=== PATIENT | male | born 1970 | race Caucasian/White ===

== ENCOUNTER 2016-09-07 15:18 | Emergency (ER) | payer OTHER ==
[~2016-09-07] VITALS: Ht 172.7 cm; Wt 77.3 kg
[~2016-09-07 15:18] MED LIST: BACTDS PO; CEPH-443 PO; MUPI22OI2 TOP
[2016-09-07 15:21] VITALS: Ht 172.7 cm; Wt 77.3 kg
[2016-09-07] MEDS ORDERED: ONDANSETRON 4 MG INJ IV STA (15:26)
[2016-09-07] MEDS ORDERED: FAMOTIDINE 20 MG INJ IV STA (15:26)
[2016-09-07] MEDS ORDERED: SOD CHLORIDE 0.9% 1,000 ML IV STA (15:26)
[2016-09-07] MEDS ORDERED: morphine 4 MG/ML VIAL IV STA (15:26)
[2016-09-07 15:42] LABS: ADD SCAN DIFF NO
[2016-09-07 15:43] LABS: BASOPHILS % 0.6 % (0.0-2.0); EOSINOPHILS # 0.4 10^3/ul (0.0-0.5); EOSINOPHILS % 5.2 % (0.0-7.0); HEMATOCRIT 38.5 % (42.0-52.0); HEMOGLOBIN 13.6 g/dl (14.0-18.0); LYMPHOCYTES # 1.6 10^3/ul (0.8-2.9); LYMPHOCYTES % 22.3 % (15.0-51.0); MEAN CORPUSCULAR HEMOGLOBIN 31.1 pg (29.0-33.0); MEAN CORPUSCULAR HGB CONC 35.3 g/dl (32.0-37.0); MEAN CORPUSCULAR VOLUME 88.1 fl (82.0-101.0); MEAN PLATELET VOLUME 10.3 fl (7.4-10.4); MONOCYTE # 0.5 10^3/ul (0.3-0.9); MONOCYTES % 7.7 % (0.0-11.0); NEUTROPHIL # 4.5 10^3/ul (1.6-7.5); NEUTROPHILS % 63.9 % (39.0-77.0); PLATELET COUNT 305 10^3/UL (140-415); RED BLOOD COUNT 4.37 10^6/ul (4.70-6.10); RED CELL DISTRIBUTION WIDTH 11.7 % (11.5-14.5); WHITE BLOOD COUNT 7.1 10^3/ul (4.8-10.8)
--- NOTE | 2016-09-07 15:50 | RADRPT ---
PROCEDURE: US Abdomen. CLINICAL INDICATION: abdominal pain TECHNIQUE: Multiple real-time images were acquired of the patient's right upper quadrant abdomen a nd retroperitoneum utilizing a high resolution transducer. COMPARISON: None FINDINGS: The liver demonstrates normal echogenicity. The liver is enlarged in size and no focal solid lesion s are seen. The liver measures 19.2 cm in length. The portal vein is patent with normal direction of flow. No intrahepatic biliary dilatation is seen. No gallstones are identified within the gallbladder. There is a moderate amount of sludge within the gallbladder. There is no pericholecystic fluid or gallbladder wall thickening. The common bile duct measures 3 mm in maximal dimension. The visualized portions of the pancreas are unremarkable. The tail of the pancreas is not seen. No free fluid is identified. The right kidney is normal in size, and demonstrate normal echogenicity and cortical thickness. The right kidney measures 11 cm in long dimension. There is no evidence of hydronephrosis. There are n o kidney stones. RPTAT: AA IMPRESSION: Moderate amount of sludge within the gallbladder. No evidence of gallbladder wall thickening or per icholecystic fluid. Mild hepatomegaly. .Kameron Collins MD, Date Time Electronically viewed and signed by .Kameron Collins MD, MD on 09/07/2016 15:50 .S/
[2016-09-07 16:05] LABS: ALBUMIN 4.3 g/dl (3.3-4.9); POTASSIUM 4.7 mmol/L (3.5-5.1)
[2016-09-07 16:07] LABS: BILIRUBIN,INDIRECT 0.5 mg/dl (0-1.1); BILIRUBIN,TOTAL 0.5 mg/dl (0.2-1.3); CREATININE 0.74 mg/dl (0.61-1.24)
[2016-09-07 16:08] LABS: ALBUMIN/GLOBULIN RATIO 1.26; CALCIUM 9.7 mg/dl (8.4-10.2); TOTAL PROTEIN 7.7 g/dl (6.1-8.1)
--- NOTE | 2016-09-07 16:23 | ERD ---
ER Documentation Chief Complaint Date/Time DATE: 09/07/16 TIME: 16:20 Chief Complaint BIB EMS abdominal pain, tachycardia HPI This is a 45-year-old male who presents to the emergency room for evaluation of abdominal pain. This patient does have a history of pancreatitis, was admitted at [facility] for gallstone pancreatitis. He was discharged and he was following up in a clinic arrange for him by the hospital and he stated that he was having abdominal pain. The clinic then called 911 and transferred this patient to the emergency room for further evaluation. The patient states that his pain is in the center of his abdomen with mild radiation to his back. He denies any alcohol use and denies any trauma to the abdomen. ROS All systems reviewed and are negative except as per history of present illness. Medications Home Meds Active Scripts Mupirocin* (Bactroban*) 2% -22 Gram Oint...g., 1 APPLIC TOP BID for 7 Days, EA Prov:JACOB SOLANO PA-C 10/09/15 Cephalexin* (Keflex*) 500 Mg Capsule, 500 MG PO QID for 14 Days, CAP Prov:JACOB SOLANO PA-C 10/09/15 Sulfamethoxazole-Trimethoprim* (Bactrim* DS) 800-160 Mg Tab, 1 TAB PO BID for 14 Days, TAB Prov:JACOB SOLANO PA-C 10/09/15 Allergies Allergies: Coded Allergies: No Known Allergy (Unverified , 10/12/15) PMhx/Soc History of Surgery: No Anesthesia Reaction: No Hx Neurological Disorder: No Hx Respiratory Disorders: No Hx Cardiac Disorders: No Hx Psychiatric Problems: No Hx Miscellaneous Medical Probl: Yes (DIABETIC FOR 6-7YEARS; Non-Compliant w/ meds and no recent Med Consult) Hx Alcohol Use: Yes (rarely) Hx Substance Use: No Hx Tobacco Use: Yes (4 to 5 sticks/day) Smoking Status: Current every day smoker Physical Exam Vitals Vital Signs Date Time Temp Pulse Resp B/P Pulse Ox O2 Delivery O2 Flow Rate FiO2 09/07/16 15:21 97.1 100 18 134/88 100 Physical Exam INITIAL VITAL SIGNS: Reviewed by me GENERAL: The patient is well developed and appropriate for usual state of health in no apparent distress HEENT: Pupils equal, round, and reactive to light. EOMI. There is no scleral icterus. NECK: C-spine is soft and supple, there is no meningismus. There is no cervical lymphadenopathy. LUNGS: Clear to auscultation bilaterally. There are no rales, wheezes or rhonchi. HEART: Regular rate and rhythm, no murmurs, clicks, rubs or gallops. ABDOMEN: Epigastric tenderness to palpation, otherwise soft, non-tender, non- distended. There are bowel sounds in all four quadrants. No rebound or guarding. EXTREMITIES: There is no peripheral cyanosis or edema. No focal swelling or erythema. NEUROLOGICAL: The patient moves all four extremities with 5/5 strength. Cranial nerves II - XII are intact. Normal gait. Alert and oriented SKIN: There is no apparent rash or petechiae. HEME/LYMPHATIC: There is no evidence of excessive bruising or lymphedema. PSYCHIATRIC: The patient does not appear anxious or depressed. Result Diagram: 09/07/16 1533 09/07/16 1533 Results 24 hrs Laboratory Tests Test 09/07/16 15:33 White Blood Count 7.110^3/ul Red Blood Count 4.3710^6/ul Hemoglobin 13.6g/dl Hematocrit 38.5% Mean Corpuscular Volume 88.1fl Mean Corpuscular Hemoglobin 31.1pg Mean Corpuscular Hemoglobin Concent 35.3g/dl Red Cell Distribution Width 11.7% Platelet Count 15505^3/UL Mean Platelet Volume 10.3fl Neutrophils % 63.9% Lymphocytes % 22.3% Monocytes % 7.7% Eosinophils % 5.2% Basophils % 0.6% Nucleated Red Blood Cells % 0.0/100WBC Neutrophils # 4.510^3/ul Lymphocytes # 1.610^3/ul Monocytes # 0.510^3/ul Eosinophils # 0.410^3/ul Basophils # 0.010^3/ul Nucleated Red Blood Cells # 0.010^3/ul Sodium Level 139mmol/L Potassium Level 4.7mmol/L Chloride Level 99mmol/L Carbon Dioxide Level 26mmol/L Anion Gap 19 Blood Urea Nitrogen 21mg/dl Creatinine 0.74mg/dl Glucose Level 251mg/dl Calcium Level 9.7mg/dl Total Bilirubin 0.5mg/dl Direct Bilirubin 0.00mg/dl Indirect Bilirubin 0.5mg/dl Aspartate Amino Transf (AST/SGOT) 23IU/L Alanine Aminotransferase (ALT/SGPT) 102IU/L Alkaline Phosphatase 142IU/L Total Protein 7.7g/dl Albumin 4.3g/dl Globulin 3.40g/dl Albumin/Globulin Ratio 1.26 Lipase 188U/L Current Medications Medications (Trade) Dose Ordered Sig/Meryl Route PRN Reason Start Time Stop Time Status Last Admin Dose Admin Sodium Chloride (NS) 1,000 ml @ 1,000 mls/hr Q1H STAT IV 09/07/16 15:26 09/07/16 16:25 09/07/16 15:44 Morphine Sulfate (morphine) 4 mg ONCE STAT IV 09/07/16 15:26 09/07/16 15:27 DC 09/07/16 15:48 Ondansetron HCl (Zofran Inj) 4 mg ONCE STAT IV 09/07/16 15:26 09/07/16 15:27 DC 09/07/16 15:48 Famotidine (Pepcid Iv) 20 mg ONCE STAT IV 09/07/16 15:26 09/07/16 15:27 DC 09/07/16 15:48 Procedures/MDM Ultrasound gallbladder: Moderate amount of sludge within the gallbladder. No evidence of gallbladder wall thickening or pericholecystic fluid. Mild hepatomegaly. This 45-year-old male presents to the emergency room for evaluation of abdominal pain from a clinic where he was following up for pancreatitis. The patient was discharged from [facility] this past week. This patient did have minor pain on my examination. I did obtain ultrasound which shows a moderate amount of sludge however no gallstones. No signs of cholecystitis. This patient's lipase is less than 300. 1 L fluids and morphine for pain. He will be discharged at this time with instructions to follow-up with his clinic and he is comfortable with our plan of care. Departure Diagnosis: Primary Impression: Abdominal pain Additional Impressions: History of pancreatitis Normocytic anemia Condition: Stable TIM BARNETT DO September 07, 2016 16:22
[2016-09-07] MEDS ORDERED: MTF1000T PO (16:27)
[2016-09-07] MEDS ORDERED: LANT3I SC (16:27)
[2016-09-07 16:30] VITALS: BP 131/75; PULSE 89; RESP 16
== END 2016-09-07 16:30 | disposition home or self-care (01) ==
LOC: E/R 15:18
DX: R10.13 Epigastric pain (principal); D64.9 Anemia, unspecified; E11.9 Type 2 diabetes mellitus without complications; F17.210 Nicotine dependence, cigarettes, uncomplicated; Z87.19 Personal history of other diseases of the digestive system
CPT/HCPCS: 36415; 76705; 80053; 83690; 85025; 96374; 96375; J2270; J2405; J7030; Z7502; Z7610

== ENCOUNTER 2016-09-26 04:42 | Emergency (ER) | payer OTHER ==
[~2016-09-26] VITALS: Ht 170.2 cm; Wt 76.5 kg
[~2016-09-26 04:42] MED LIST changes: -BACTDS PO; -CEPH-443 PO; +LANT3I SC; +MTF1000T PO; -MUPI22OI2 TOP
[2016-09-26 04:44] VITALS: Ht 170.2 cm; Wt 76.5 kg
[2016-09-26] MEDS ORDERED: SOD CHLORIDE 0.9% 500 ML IV STA (05:04)
[2016-09-26] MEDS ORDERED: ONDANSETRON 4 MG INJ IV STA (05:04)
[2016-09-26] MEDS ORDERED: MECLIZINE 12.5 MG TAB PO ONE (05:30)
[2016-09-26 05:48] LABS: ADD SCAN DIFF NO
[2016-09-26 05:50] LABS: BASOPHILS % 0.3 % (0.0-2.0); EOSINOPHILS # 0.3 10^3/ul (0.0-0.5); EOSINOPHILS % 5.7 % (0.0-7.0); HEMATOCRIT 33.4 % (42.0-52.0); HEMOGLOBIN 11.6 g/dl (14.0-18.0); LYMPHOCYTES % 33.3 % (15.0-51.0); MEAN CORPUSCULAR HEMOGLOBIN 30.9 pg (29.0-33.0); MEAN CORPUSCULAR HGB CONC 34.7 g/dl (32.0-37.0); MEAN CORPUSCULAR VOLUME 89.1 fl (82.0-101.0); MONOCYTE # 0.6 10^3/ul (0.3-0.9); MONOCYTES % 9.4 % (0.0-11.0); NEUTROPHIL # 3.1 10^3/ul (1.6-7.5); PLATELET COUNT 205 10^3/UL (140-415); RED BLOOD COUNT 3.75 10^6/ul (4.70-6.10); RED CELL DISTRIBUTION WIDTH 12.1 % (11.5-14.5)
--- NOTE | 2016-09-26 05:56 | RADRPT ---
PROCEDURE: CHEST - 1 VIEW CLINICAL INDICATION: 45-year-old male with chest pain. TECHNIQUE: A single frontal AP supine view of the chest was performed. The images were reviewed o n a PACS workstation. COMPARISON: None. FINDINGS: The cardiomediastinal silhouette has a normal appearance. There is no evidence for an infiltrate. There is no evidence for congestive heart failure. There is no evidence for pneumothorax. The osseou s structures are intact. IMPRESSION: No evidence for active cardiopulmonary disease. .Delfino Foss MD, MD Date Time Electronically viewed and signed by .Delfino Foss MD, on 09/26/2016 05:55 .M/
[2016-09-26 06:17] LABS: INR 0.9; PROTIME 12.1 Sec (12.2-14.2); PT RATIO 0.9
[2016-09-26 06:39] LABS: ALANINE AMINOTRANSFERASE 34 IU/L (13-69); ALBUMIN 4.3 g/dl (3.3-4.9); ALBUMIN/GLOBULIN RATIO 1.79; ALKALINE PHOSPHATASE 78 IU/L (42-121); ANION GAP 13 (8-16); ASPARTATE AMINO TRANSFERASE 16 IU/L (15-46); BILIRUBIN,INDIRECT 0.4 mg/dl (0-1.1); BILIRUBIN,TOTAL 0.4 mg/dl (0.2-1.3); BLOOD UREA NITROGEN 30 mg/dl (7-20); CALCIUM 9.4 mg/dl (8.4-10.2); CARBON DIOXIDE 27 mmol/L (21-31); CHLORIDE 103 mmol/L (97-110); CREATININE 1.66 mg/dl (0.61-1.24); GLUCOSE 250 mg/dl (70-220); POTASSIUM 4.1 mmol/L (3.5-5.1); SODIUM 139 mmol/L (135-144); TOTAL PROTEIN 6.7 g/dl (6.1-8.1)
--- NOTE | 2016-09-26 06:49 | ERD ---
ER Documentation Chief Complaint Date/Time DATE: 09/26/16 TIME: 06:45 Chief Complaint Pt reports dizziness and weakness with exertion, hx of vertigo HPI This is a very pleasant 45-year-old male who presents to the emergency room with dizziness. He gives a an excellent history of 4 days of symptoms of spinning sensation that is sudden in onset and sudden offset. The patient also describes some generalized weakness. At triage he noted weakness with exertion but denies this to me currently. He denies any chest pain no pressure no shortness of breath. He denies any headache falls or trauma. No fevers or chills. ROS All systems reviewed and are negative except as per history of present illness. Medications Home Meds Active Scripts Meclizine Hcl* (Meclizine Hcl*) 25 Mg Tablet, 25 MG PO Q8H Y for DIZZINESS, #30 TAB Prov:CONSUELO MORGAN MD 09/26/16 Reported Medications Insulin Glargine* (Lantus*) 100 Unit/Ml Soln, 12 UNIT SC QHS, #1 VIAL 09/07/16 Metformin* (Glucophage*) 1,000 Mg Tablet, 1000 MG PO WITH BREAKFAST DINNE, #60 TAB 09/07/16 Allergies Allergies: Coded Allergies: No Known Allergy (Unverified , 09/07/16) PMhx/Soc History of Surgery: No Anesthesia Reaction: No Hx Neurological Disorder: No Hx Respiratory Disorders: No Hx Cardiac Disorders: No Hx Psychiatric Problems: No Hx Miscellaneous Medical Probl: Yes (DIABETIC FOR 6-7YEARS; Non-Compliant w/ meds and no recent Med Consult) Hx Alcohol Use: Yes (rarely) Hx Substance Use: No Hx Tobacco Use: Yes (4 to 5 sticks/day) Smoking Status: Current every day smoker FmHx Family History: No diabetes Physical Exam Vitals Vital Signs Date Time Temp Pulse Resp B/P Pulse Ox O2 Delivery O2 Flow Rate FiO2 09/26/16 06:11 86 15 128/91 100 Room Air 09/26/16 04:44 98.3 107 20 102/56 100 Physical Exam General: Well developed, well nourished, no acute distress Head: Normocephalic, atraumatic. Eyes: Pupils equally reactive, EOM intact ENT: Moist mucous membranes Neck: Supple, no lymphadenopathy Respiratory: Lungs clear bilaterally, no distress Cardiovascular: RRR, no murmurs, rubs, or gallops Abdominal: Soft, non-tender, non-distended, no peritoneal signs : Deferred MSK: No edema, no unilateral swelling, 5/5 strength Neurologic: Alert and oriented, moving all extremities, normal speech, no focal weakness, no cerebellar signs, reproducible vertigo with head movements, no significant nystagmus, no ataxia and steady gait Skin: No rash Psych: Normal mood Result Diagram: 09/26/1652609/26/16526 Results 24 hrs Laboratory Tests Test 09/26/16 05:24 09/26/16 05:27 Bedside Glucose 260mg/dL White Blood Count 6.010^3/ul Red Blood Count 3.7510^6/ul Hemoglobin 11.6g/dl Hematocrit 33.4% Mean Corpuscular Volume 89.1fl Mean Corpuscular Hemoglobin 30.9pg Mean Corpuscular Hemoglobin Concent 34.7g/dl Red Cell Distribution Width 12.1% Platelet Count 00296^3/UL Mean Platelet Volume 11.0fl Neutrophils % 51.0% Lymphocytes % 33.3% Monocytes % 9.4% Eosinophils % 5.7% Basophils % 0.3% Nucleated Red Blood Cells % 0.0/100WBC Neutrophils # 3.110^3/ul Lymphocytes # 2.010^3/ul Monocytes # 0.610^3/ul Eosinophils # 0.310^3/ul Basophils # 0.010^3/ul Nucleated Red Blood Cells # 0.010^3/ul Prothrombin Time 12.1Sec Prothrombin Time Ratio 0.9 INR International Normalized Ratio 0.90 Activated Partial Thromboplast Time 25.0Sec Sodium Level 139mmol/L Potassium Level 4.1mmol/L Chloride Level 103mmol/L Carbon Dioxide Level 27mmol/L Anion Gap 13 Blood Urea Nitrogen 30mg/dl Creatinine 1.66mg/dl Glucose Level 250mg/dl Calcium Level 9.4mg/dl Total Bilirubin 0.4mg/dl Direct Bilirubin 0.00mg/dl Indirect Bilirubin 0.4mg/dl Aspartate Amino Transf (AST/SGOT) 16IU/L Alanine Aminotransferase (ALT/SGPT) 34IU/L Alkaline Phosphatase 78IU/L Troponin I < 0.012ng/ml B-Type Natriuretic Peptide 95PG/ML Total Protein 6.7g/dl Albumin 4.3g/dl Globulin 2.40g/dl Albumin/Globulin Ratio 1.79 Current Medications Medications (Trade) Dose Ordered Sig/Meryl Route PRN Reason Start Time Stop Time Status Last Admin Dose Admin Sodium Chloride (NS) 500 ml @ 500 mls/hr Q1H STAT IV 09/26/16 05:04 09/26/16 06:03 DC 09/26/16 05:33 Ondansetron HCl (Zofran Inj) 4 mg ONCE STAT IV 09/26/16 05:04 09/26/16 05:06 DC 09/26/16 05:33 Meclizine HCl (Antivert) 25 mg ONCE ONCE PO 09/26/16 05:30 09/26/16 05:31 DC 09/26/16 05:33 Procedures/MDM EKG, MONITORS, & DIAGNOSTIC IMAGING: EKG: I reviewed and interpreted a 12-lead EKG. Rhythm: Normal sinus rhythm Ectopy: None Intervals: No abnormalities ST segments: No elevations or depressions T waves: No contiguous inversions Chest x-ray: I reviewed and interpreted a 1 view of the chest Mediastinum: No enlargement Cardiac silhouette: No cardiomegaly Airspace: Clear lung doyle bilaterally without evidence of pneumothorax Bones: No evidence of fracture LAB INTERPRETATION: Mild renal insufficiency, mild hyperglycemia without evidence of diabetic ketoacidosis MEDICAL DECISION MAKING: The patient presents with signs and symptoms that are very consistent with benign positional vertigo and peripheral vertigo. He has no risk factors for central vertigo, he has reproducible symptoms that are sudden in onset and suddenly resolved. He has no signs of increased intracranial pressure. At triage and on the overnight physician's evaluation it was reported that the patient may have had exertional symptoms but he denies this to me. It appears that a workup was initiated including EKG and blood work for these reasons. However, on my evaluation and discussion the patient only describes generalized weakness. He denies any chest pain no shortness of breath no dyspnea on exertion no nausea on exertion. He has no exertional symptoms. ER COURSE: Patient was given meclizine with complete resolution of his symptoms. His laboratory testing and diagnostic imaging shows no evidence of cardiac process or etiology. No evidence of endorgan dysfunction. No indication for CT imaging of the brain given the patient's age and reproducible symptoms. The patient does have mild renal insufficiency and hyperglycemia but no DKA. He has a known history of diabetes. He states compliance with medications. I advised him to follow-up with his primary care physician to follow kidney function. Patient states understanding. I kept the patient and/or family informed of laboratory and diagnostic imaging results throughout the emergency room course. DISPOSITION PLAN: We discussed follow up with the patient's primary care doctor within 24 to 48 hours as needed. We also discussed return to the emergency room for worsening symptoms or worsening condition. Outpatient referral: None required Discharge Medications: Meclizine Departure Diagnosis: Primary Impression: Acute renal insufficiency Additional Impression: Peripheral vertigo Laterality: unspecified laterality Qualified Code: H81.399 - Peripheral vertigo, unspecified laterality Condition: Stable CONSUELO MORGAN MD Sep 26, 2016 06:48
[2016-09-26 06:50] LABS: B-TYPE NATRIURETIC PEPTIDE 95 PG/ML (0-125)
[2016-09-26 06:56] LABS: TROPONIN-I < 0.012 ng/ml (0.00-0.12)
[2016-09-26 07:20] VITALS: BP 122/70; PULSE 84; RESP 15
[2016-09-26] MEDS ORDERED: MECL-77 PO (07:29)
== END 2016-09-26 08:12 | disposition home or self-care (01) ==
LOC: E/R 04:42
DX: N28.9 Disorder of kidney and ureter, unspecified (principal); H81.399 Other peripheral vertigo, unspecified ear; F17.210 Nicotine dependence, cigarettes, uncomplicated; E11.9 Type 2 diabetes mellitus without complications; R07.9 Chest pain, unspecified; Z79.4 Long term (current) use of insulin; Z79.84 Long term (current) use of oral hypoglycemic drugs
CPT/HCPCS: 36415; 71010; 80053; 82962; 83880; 84484; 85025; 85610; 85730; 93005; 96374; J2405; J7040; Z7502; Z7610

== ENCOUNTER 2016-10-21 02:25 | Emergency (ER) | payer OTHER ==
[~2016-10-21] VITALS: Ht 172.7 cm; Wt 78.5 kg
[~2016-10-21 02:25] MED LIST changes: +MECL-77 PO
[2016-10-21 02:29] VITALS: Ht 172.7 cm; Wt 78.5 kg
--- NOTE | 2016-10-21 02:37 | ERA ---
ER Documentation Chief Complaint Date/Time DATE: 10/21/16 TIME: 02:36 Chief Complaint LEWIS and left eye pain HPI The patient is a 46-year-old male, presenting to the ER because of headache, left eye pain that began about 8 PM yesterday, complains of decreased visual acuity on the left eye. He denies similar symptoms previously, denies diplopia , fever, neck pain, chest pain, abdominal pain, vomiting, dysuria, diarrhea. He smokes socially, denies drinking Past medical history: Diabetes mellitus Past surgical history: None ROS All systems reviewed and are negative except as per history of present illness. Medications Home Meds Reported Medications Insulin Glargine* (Lantus*) 100 Unit/Ml Soln, 12 UNIT SC QHS, #1 VIAL 09/07/16 Metformin* (Glucophage*) 1,000 Mg Tablet, 1000 MG PO WITH BREAKFAST DINNE, #60 TAB 09/07/16 Discontinued Scripts Meclizine Hcl* (Meclizine Hcl*) 25 Mg Tablet, 25 MG PO Q8H Y for DIZZINESS, #30 TAB Prov:CONSUELO MORGAN MD 09/26/16 Allergies Allergies: Coded Allergies: No Known Allergy (Unverified , 10/21/16) PMhx/Soc History of Surgery: No Anesthesia Reaction: No Hx Neurological Disorder: No Hx Respiratory Disorders: No Hx Cardiac Disorders: No Hx Psychiatric Problems: No Hx Miscellaneous Medical Probl: Yes (DIABETIC FOR 6-7YEARS; Non-Compliant w/ meds and no recent Med Consult) Hx Alcohol Use: Yes (rarely) Hx Substance Use: No Hx Tobacco Use: Yes (4 to 5 sticks/day) Physical Exam Vitals Vital Signs Date Time Temp Pulse Resp B/P Pulse Ox O2 Delivery O2 Flow Rate FiO2 10/21/16 02:39 98 17 181/95 100 Room Air 10/21/16 02:29 98.4 100 18 186/102 99 Physical Exam Const: No acute distress. Head: Atraumatic. Eyes: Normal Conjunctiva. Minimal erythematous left conjunctiva, no discharge, no eye entrapment ENT: Normal External Ears, Nose and Mouth. Neck: Full range of motion. No meningismus. Resp: Clear to auscultation bilaterally. Cardio: Regular rate and rhythm. Abd: Soft, non distended, normal bowel sounds, non tender. Skin: No petechiae or rashes. Back: No midline or flank tenderness. Ext: No cyanosis, or edema. Neur: Awake and alert. No focal deficit Psych: Normal Mood and Affect. Procedures/MDM [place] [id number] Radiology Main Line: [phone] DIAGNOSTIC IMAGING REPORT Patient: BRIAN SOARES : 1970 Age: 46 Sex: M MR #: [id number] DOS: 10/21/16249 Ordering MD: VIRI BRANDON MD Location: E/R Room/Bed: PROCEDURE: Bilateral ocular ultrasound CLINICAL INDICATION: Left sided visual disturbance. Evaluate for retinal detachment or vitreous hemorrhage. TECHNIQUE: Bilateral ocular scanning was performed with a high frequency linear transducer. COMPARISON: None FINDINGS: The anterior chamber of both eyes is unremarkable. There is no evidence for retinal hemorrhage of either eye. A small amount of posterior debris is seen in the right globe. And real-time examination, the nursing home physician felt a small amount of dependent material is also present in the left eye. IMPRESSION: Small amount of probable vitreous hemorrhage or debris of both eyes, right greater than left. No evidence for retinal hemorrhage. Physician Luis Date Time Electronically viewed and signed by Cuca Ceron Physician on 10/21/2016 04 :16 LE/ CC: VIRI BRANDON MD [place] [address] Radiology Main Line: [phone] DIAGNOSTIC IMAGING REPORT Patient: BRIAN SOARES : 1970 Age: 46 Sex: M MR #: [id number] DOS: 10/21/16249 Ordering MD: VIRI BRANDON MD Location: E/R Room/Bed: PROCEDURE: CT BRAIN WITHOUT CONTRAST CLINICAL INDICATION: 46-year-old male with headaches. TECHNIQUE: The study was performed utilizing [employer] VCT 64-slice CT scanner. Direct axial sections were obtained from the foramen magnum to the vertex without the use of intravenous contrast material. Sagittal and coronal reformations were obtained. One or more of the following dose reduction techniques were utilized: automated exposure control, adjustment of the mA and/ or kV according to patient's size or use of iterative reconstruction technique. The images were viewed on a PACS workstation. CTD/vol = 42.9 mGy; Total Exam DLP = 720.2 mGy-cm. COMPARISON: None. FINDINGS: There is mild prominence of the sulci and cisternal spaces consistent with diffuse volume loss. Otherwise, the ventricles have a normal shape and position. There is no evidence for mass effect or midline shift. There are no intracranial areas of abnormal attenuation. There is no evidence for acute intra or extra-axial blood. The bony calvarium is intact. The partially visualized paranasal sinuses and mastoid air cells are without significant abnormal soft tissue. IMPRESSION: Mild diffuse volume loss. .Delfino Foss MD, MD Date Time Electronically viewed and signed by .Delfino Foss MD, MD on 10/21/2016 03:30 .M/ CC: VIRI BRANDON MD MEDICAL MAKING DECISION: The patient is a 46-year-old male, presenting with acute bilateral vitreous hemorrhage. Visual acuity is unchanged. The differential diagnoses considered include but are not limited to retinal detachment, vitreous detachment Departure Diagnosis: Primary Impression: Vitreous hemorrhage, bilateral Condition: Good Comments I discussed the findings with the patient. I advised the patient to follow-up with radio director at [facility], [facility], [facility] tomorrow immediately and return if any concern VIRI BRANDON MD Oct 21, 2016 02:37
--- NOTE | 2016-10-21 03:31 | RADRPT ---
PROCEDURE: CT BRAIN WITHOUT CONTRAST CLINICAL INDICATION: 46-year-old male with headaches. TECHNIQUE: The study was performed utilizing [employer] VCT 64-slice CT scanner. Direct axial sections were obtained from the foramen magnum to the vertex without the use of intravenous contrast material. Sagittal and coronal reformations were obtained. One or more of the following dose reduc tion techniques were utilized: automated exposure control, adjustment of the mA and/or kV according to patient's size or use of iterative reconstruction technique. The images were viewed on a PACS w orkstation. CTD/vol = 42.9 mGy; Total Exam DLP = 720.2 mGy-cm. COMPARISON: None. FINDINGS: There is mild prominence of the sulci and cisternal spaces consistent with diffuse volume loss. Oth erwise, the ventricles have a normal shape and position. There is no evidence for mass effect or mid line shift. There are no intracranial areas of abnormal attenuation. There is no evidence for acut e intra or extra-axial blood. The bony calvarium is intact. The partially visualized paranasal sinus es and mastoid air cells are without significant abnormal soft tissue. IMPRESSION: Mild diffuse volume loss. .Delfino Foss MD, MD Date Time Electronically viewed and signed by .Delfino Foss MD, on 10/21/2016 03:30 .M/
--- NOTE | 2016-10-21 04:16 | RADRPT ---
PROCEDURE: Bilateral ocular ultrasound CLINICAL INDICATION: Left sided visual disturbance. Evaluate for retinal detachment or vitreous h emorrhage. TECHNIQUE: Bilateral ocular scanning was performed with a high frequency linear transducer. COMPARISON: None FINDINGS: The anterior chamber of both eyes is unremarkable. There is no evidence for retinal hemorrhage of e ither eye. A small amount of posterior debris is seen in the right globe. And real-time examinatio n, the conservation specialist felt a small amount of dependent material is also present in the left eye. IMPRESSION: Small amount of probable vitreous hemorrhage or debris of both eyes, right greater than left. No ev idence for retinal hemorrhage. Physician Luis Date Time Electronically viewed and signed by Cuca Ceron Physician on 10/21/2016 04:16 LE/
[2016-10-21 04:47] VITALS: BP 142/79; PULSE 78; RESP 18
== END 2016-10-21 04:50 | disposition home or self-care (01) ==
LOC: E/R 02:25
DX: H43.13 Vitreous hemorrhage, bilateral (principal); E11.9 Type 2 diabetes mellitus without complications; F17.210 Nicotine dependence, cigarettes, uncomplicated; R51 Headache; Z79.84 Long term (current) use of oral hypoglycemic drugs; Z79.4 Long term (current) use of insulin
CPT/HCPCS: 70450; 76536; Z7502

== ENCOUNTER 2018-10-13 11:57 | Inpatient (IN) | payer OTHER ==
[~2018-10-13] VITALS: Ht 170.2 cm; Wt 99.9 kg
[~2018-10-13 11:57] MED LIST changes: -MECL-77 PO
[2018-10-13] MEDS ORDERED: FUROSEMIDE 40 MG INJ IV STA (12:15)
[2018-10-13] MEDS ORDERED: CARV25TA79 PO (12:52)
[2018-10-13] MEDS ORDERED: BUME1TAB PO (12:52)
[2018-10-13] MEDS ORDERED: INSU100I33 SC (12:53)
[2018-10-13] MEDS ORDERED: HYDR100T25 PO (12:53)
[2018-10-13] MEDS ORDERED: FER325 PO (12:54)
[2018-10-13] MEDS ORDERED: METF-406 PO (12:56)
[2018-10-13] MEDS ORDERED: AMLO-147 PO (12:56)
[2018-10-13] MEDS ORDERED: ATOR40TA68 PO (12:56)
[2018-10-13] MEDS ORDERED: ERGO500013 PO (12:57)
--- NOTE | 2018-10-13 13:26 | ERD ---
ER Documentation Chief Complaint Chief Complaint SOB X 10 DAYS, SERGIO LEG SWELLING HPI 48-year-old male presents complaining of shortness of breath, bilateral lower extremity and scrotal swelling. Patient states she is had multiple hospitalizations for similar with his last hospitalization at [facility] approximately 10 days ago. Since leaving the hospital, he is been having increasing swelling about both lower extremities as well as his testicle and over the last 24 to 48 hours began developing shortness of breath. He denies any chest pain, palpitations. He reports no fevers or chills. He reports no abdominal pain. He reports no difficulty urinating. ROS All systems reviewed and are negative except as per history of present illness. Medications Home Meds Reported Medications Ergocalciferol (Vitamin D2) (VITAMIN D2) 50,000 Unit Capsule, 41765 UNIT PO KENY RY SUNDAY, CAP 10/13/18 Amlodipine Besylate* (Amlodipine Besylate*) 10 Mg Tablet, 10 MG PO DAILY, #30 TAB 10/13/18 Atorvastatin* (Atorvastatin*) 40 Mg Tablet, 40 MG PO QHS, #30 TAB 10/13/18 Metformin Hcl* (Metformin Hcl* ER) 1,000 Mg Tab.er.24, 1000 MG PO BID, #30 TAB 10/13/18 Ferrous Sulfate* (Ferrous Sulfate*) 325 Mg Tabec, 325 MG PO DAILY, TAB 10/13/18 Hydralazine Hcl* (Hydralazine Hcl*) 100 Mg Tablet, 100 MG PO BID, #90 TAB 10/13/18 Insulin Glargine,Hum.rec.anlog (Basaglar Kwikpen U-100) 100 Unit/1 Ml Insuln.pen, 8 UNIT SC QHS, EA 10/13/18 Carvedilol* (Carvedilol*) 25 Mg Tablet, 25 MG PO BID, #60 TAB 10/13/18 Bumetanide* (Bumetanide*) 1 Mg Tablet, 1 MG PO BID, TAB 10/13/18 Discontinued Reported Medications Insulin Glargine* (Lantus*) 100 Unit/Ml Soln, 12 UNIT SC QHS, #1 VIAL 09/07/16 Metformin* (Glucophage*) 1,000 Mg Tablet, 1000 MG PO WITH BREAKFAST DINNE, #60 TAB 09/07/16 Allergies Allergies: Coded Allergies: No Known Allergy (Unverified , 10/13/18) PMhx/Soc History of Surgery: No Anesthesia Reaction: No Hx Neurological Disorder: No Hx Respiratory Disorders: No Hx Cardiac Disorders: No Hx Psychiatric Problems: No Hx Miscellaneous Medical Probl: Yes (DIABETIC FOR 6-7YEARS; Non-Compliant w/meds and no recent Med Consult) Hx Alcohol Use: Yes (rarely) Hx Substance Use: No Hx Tobacco Use: Yes (4 to 5 sticks/day) Smoking Status: Current every day smoker FmHx Noncontributory for chief complaint Physical Exam Vitals Vital Signs Date Temp Pulse Resp B/P (MAP) Pulse Ox O2 O2 Flow FiO2 Time Delivery Rate 10/13/18 98.1 75 19 130/79 99 Room Air 12:18 (96) 10/13/18 98.1 79 18 134/64 99 12:01 (87) Physical Exam GENERAL: Chronically ill-appearing, pale. HEENT: Pupils equal, round, and reactive to light. EOMI. There is no scleral icterus. No JVD NECK: C-spine is soft and supple, there is no meningismus. There is no cervical lymphadenopathy. LUNGS: Occasional crackle at both bases. No tachypnea or retractions. HEART: Regular rate and rhythm, no murmurs, clicks, rubs or gallops. ABDOMEN: Soft, non-tender, non-distended. There are bowel sounds in all four quadrants. No rebound or guarding. Patient has significant swelling about the abdomen. : Scrotal swelling without evidence of infection EXTREMITIES: 3+ edema bilaterally with no cyanosis or clubbing NEURO: The patient moves all four extremities with 5/5 strength. Cranial nerves II - XII are intact. Normal gait. Alert and oriented SKIN: There is no apparent rash or petechiae. Pallor is appreciated HEME/LYMPHATIC: There is no evidence of excessive bruising or lymphedema. PSYCHIATRIC: The patient does not appear anxious or depressed. Result Diagram: 10/13/18 1226 10/13/18 1226 Results 24 hrs Laboratory Tests Test 10/13/18 12:26 White Blood Count 5.9 10^3/ul Red Blood Count 2.64 10^6/ul Hemoglobin 7.7 g/dl Hematocrit 24.0 % Mean Corpuscular Volume 90.9 fl Mean Corpuscular Hemoglobin 29.2 pg Mean Corpuscular Hemoglobin Concent 32.1 g/dl Red Cell Distribution Width 14.6 % Platelet Count 193 10^3/UL Mean Platelet Volume 11.1 fl Immature Granulocytes % 0.300 % Neutrophils % 67.2 % Lymphocytes % 16.5 % Monocytes % 9.6 % Eosinophils % 5.4 % Basophils % 1.0 % Nucleated Red Blood Cells % 0.0 /100WBC Immature Granulocytes # 0.020 10^3/ul Neutrophils # 4.0 10^3/ul Lymphocytes # 1.0 10^3/ul Monocytes # 0.6 10^3/ul Eosinophils # 0.3 10^3/ul Basophils # 0.1 10^3/ul Nucleated Red Blood Cells # 0.0 10^3/ul Prothrombin Time 12.8 Sec Prothrombin Time Ratio 1.0 INR International Normalized Ratio 0.95 Activated Partial Thromboplast Time 31.5 Sec Sodium Level 144 mmol/L Potassium Level 4.9 mmol/L Chloride Level 114 mmol/L Carbon Dioxide Level 23 mmol/L Anion Gap 7 Blood Urea Nitrogen 44 mg/dl Creatinine 2.62 mg/dl Est Glomerular Filtrat Rate mL/min 26 mL/min Glucose Level 92 mg/dl Calcium Level 8.2 mg/dl Total Bilirubin 0.5 mg/dl Direct Bilirubin 0.00 mg/dl Indirect Bilirubin 0.5 mg/dl Aspartate Amino Transf (AST/SGOT) 23 IU/L Alanine Aminotransferase (ALT/SGPT) 23 IU/L Alkaline Phosphatase 103 IU/L Troponin I < 0.012 ng/ml B-Type Natriuretic Peptide 4070 PG/ML Total Protein 6.3 g/dl Albumin 3.2 g/dl Globulin 3.10 g/dl Albumin/Globulin Ratio 1.03 Current Medications Medications Dose Sig/Meryl Start Time Status Last (Trade) Ordered Route PRN Stop Time Admin Dose Reason Admin Furosemide 40 mg ONCE STAT 10/13/18 DC 10/13/18 (Lasix) IV 12:15 12:37 10/13/18 12:16 Procedures/MDM Patient was taken to a room, seen and evaluated. Comfort measures were initiated. Diagnostic tests were ordered and reviewed. 3 LEAD RHYTHM STRIP: Normal sinus rhythm without ectopy EK lead EKG reviewed by myself: Normal Sinus Rhythm Rightward axis. Normal intervals. No ST elevation, depression, or T wave inversion Impression: Nonspecific EKG RADIOLOGY: Reviewed with the radiologist CONSULTATION: Hospitalist was notified for admission REEVALUATION: 1325: Diagnostic tests were appreciated and decision was made to admit to the hospital. Patient remained stable in the emergency room. MEDICAL DECISION MAKIN-year-old male presents with significant lower extremity and scrotal edema as well as what appears to be mild congestive heart failure symptoms. Tests indicate that he has concurrent likely liver disease with a low albumin and anemia as well as renal disease. Patient will require admission to the hospital for diuresis, symptom control as well as further diagnostic work-up. Fortunately at this time, he does not appear to be acutely ischemic with a negative troponin and EKG that does not demonstrate cardiac ischemia. Departure Diagnosis: Primary Impression: Congestive heart failure Additional Impressions: Anemia Kidney injury Condition: TIFFANIE Estes Oct 13, 2018 13:26
[2018-10-13] MEDS ORDERED: ONDANSETRON 4 MG INJ IV PRN ×2 (13:30→14:00)
[2018-10-13] MEDS ORDERED: ACETAMINOPHEN 325 MG TAB PO PRN ×2 (13:30→14:00)
--- NOTE | 2018-10-13 13:51 | HP ---
Date/Time of Note Date/Time of Note DATE: 10/13/18 TIME: 13:51 Assessment/Plan VTE Prophylaxis SCD applied (from Nsg): No SCD contraindicated: other Pharmacological prophylaxis: heparin Lines/Catheters IV Catheter Type (from Nrsg): Saline Lock Assessment/Plan Assessment/Plan 1. Acute on chronic heart failure - BNP elevated, 4000K - ECHO ordered to assess EF - Diuretics on board - Dr. Gutiérrez, Cardiology consulted for assistance with diuresis and medication adjustments - Daily weights and I/O - No effusions or pulmonary edema on CXR 2. ALEX on CKD - possible secondary to cardio renal vs diabetic nephropathy - Unsure baseline - Dr. Lieberman, Nephrology consulted for further recommendations - Renal US ordered - avoid nephrotoxic agents 3. Anemia - will check iron levels - no need for transfusions at this time 4. Diabetes Mellitus - A1c ordered - ISS and accuchecks - holding Metformin in setting of ALEX 5. HTN - continue home medications 6. Constipation - bowel regime 7. LE edema - secondary to CHF 8. Diet - Carb controlled 9. Disposition - Admit to Telemetry for treatment of acute CHF exacerbation and acute renal failure. Result Diagram: 10/13/18 1226 10/13/18 1226 Results 24hrs Laboratory Tests Test 10/13/18 12:26 White Blood Count 5.9 Red Blood Count 2.64 #L Hemoglobin 7.7 #L Hematocrit 24.0 #L Mean Corpuscular Volume 90.9 Mean Corpuscular Hemoglobin 29.2 Mean Corpuscular Hemoglobin Concent 32.1 Red Cell Distribution Width 14.6 #H Platelet Count 193 Mean Platelet Volume 11.1 H Immature Granulocytes % 0.300 Neutrophils % 67.2 Lymphocytes % 16.5 Monocytes % 9.6 Eosinophils % 5.4 Basophils % 1.0 Nucleated Red Blood Cells % 0.0 Immature Granulocytes # 0.020 Neutrophils # 4.0 Lymphocytes # 1.0 Monocytes # 0.6 Eosinophils # 0.3 Basophils # 0.1 Nucleated Red Blood Cells # 0.0 Prothrombin Time 12.8 Prothrombin Time Ratio 1.0 INR International Normalized Ratio 0.95 Activated Partial Thromboplast Time 31.5 Sodium Level 144 Potassium Level 4.9 Chloride Level 114 H Carbon Dioxide Level 23 Anion Gap 7 Blood Urea Nitrogen 44 H Creatinine 2.62 H Est Glomerular Filtrat Rate mL/min 26 L Glucose Level 92 Calcium Level 8.2 L Total Bilirubin 0.5 Direct Bilirubin 0.00 Indirect Bilirubin 0.5 Aspartate Amino Transf (AST/SGOT) 23 Alanine Aminotransferase (ALT/SGPT) 23 Alkaline Phosphatase 103 Troponin I < 0.012 B-Type Natriuretic Peptide 4070 H Total Protein 6.3 Albumin 3.2 L Globulin 3.10 Albumin/Globulin Ratio 1.03 HPI/ROS Admit Date/Time Admit Date/Time 10/13/18 Hx of Present Illness 48 yo M PMH diabetes and hypertension presented to ED with worsening shortness of breath and difficulty ambulating. Patient states he was recently at [facility] for one week and denies being told anything was wrong with his heart. He has been home for the past week and still has not been feeling well. He denies having any renal issues and states he's compliant with whatever medications are on his list. He is not familiar with why he is on each of his medications. He does admit to lower extremity swelling that has been worsening over the past year. Denies any chest pain, dizziness, nausea, vomiting, fevers, chills, abdominal pain, or urinary issues. Does complain of constipation but last BM was yesterday. Patient states glucose is well controlled at home as well. ROS All 12 systems reviewed and pertinent positives as per HPI. All others negative. Constitutional: No fatigue, No nausea Eyes: No discharge ENT: No congestion Respiratory: shortness of breath; No cough, No sputum, No wheezing Cardiovascular: edema; No chest pain, No lightheadedness, No palpitations Gastrointestinal: constipation; No pain, No diarrhea, No nausea, No vomiting Genitourinary: no complaints Musculoskeletal: No back pain, No neck pain Skin: No bruising, No laceration, No rash Neurologic: No confusion, No dizziness, No focal-weakness, No syncope Endocrine: no complaints Lymphatic: no complaints Psychological: nl mood/affect Immunologic: no complaints PMH/Family/Social Past Medical History Medical History: diabetes, hypertension Medications Current Medications Ondansetron HCl (Zofran Inj) 4 mg ER BRIDGE PRN IV NAUSEA/VOMITING; Start 10/13/18 at 13:30; Stop 10/14/18 at 13:29 Acetaminophen (Tylenol Tab) 650 mg ER BRIDGE PRN PO .MILD PAIN 1-3 OR TEMP; Start 10/13/18 at 13:30; Stop 10/14/18 at 13:29 Amlodipine Besylate (Norvasc) 10 mg DAILY PO ; Start 10/14/18 at 09:00; Status UNV Atorvastatin Calcium (Lipitor) 40 mg QHS PO ; Start 10/13/18 at 21:00; Status UNV Carvedilol (Coreg) 25 mg BID PO ; Start 10/13/18 at 21:00; Status UNV Ferrous Sulfate (Ferrous Sulfate (Ec)) 325 mg DAILY PO ; Start 10/14/18 at 09:00; Status UNV Hydralazine HCl (Apresoline) 100 mg BID PO ; Start 10/13/18 at 21:00; Status UNV Insulin Glargine (Lantus) 8 unit QHS SC ; Start 10/13/18 at 21:00; Status UNV IV Flush (NS 3 ml) 3 ml PER PROTOCOL IV ; Start 10/13/18 at 14:00; Status UNV Ondansetron HCl (Zofran Inj) 4 mg Q6H PRN IV NAUSEA/VOMITING; Start 10/13/18 at 14:00; Status UNV Nitroglycerin (Nitroglycerin (Sl Tab) 0.4 Mg) 1 tab Q5M PRN SL .CHEST PAIN; Start 10/13/18 at 14:00; Status UNV Acetaminophen (Tylenol Tab) 650 mg Q6H PRN PO .PAIN 1-3 OR TEMP; Start 10/13/18 at 14:00; Status UNV Docusate Sodium (Colace) 100 mg Q12H PRN PO .CONSTIPATION; Start 10/13/18 at 14:00; Status UNV Magnesium Hydroxide (Milk Of Mag) 30 ml DAILY PRN PO .CONSTIPATION; Start 10/13/18 at 14:00; Status UNV Pantoprazole (Protonix Tab) 40 mg DAILY@06 PO ; Start 10/14/18 at 06:00; Status UNV Heparin Sodium (Porcine) (Heparin (5000 Units/1ml)) 5,000 unit Q12 SC ; Start 10/13/18 at 21:00; Status UNV Bumetanide (Bumex) 1 mg BID DIURETICS IV ; Start 10/13/18 at 18:00; Status UNV Coded Allergies: No Known Allergy (Unverified , 10/13/18) Past Surgical History Past Surgical Hx: no surgical history Family History Significant Family History: diabetes, hypertension Social History Alcohol Use: none Smoking Status: Current every day smoker Drug Use: none Exam/Review of Systems Vital Signs Vitals Vital Signs Date Temp Pulse Resp B/P (MAP) Pulse Ox O2 O2 Flow FiO2 Time Delivery Rate 10/13/18 98.1 75 19 130/79 99 Room Air 12:18 (96) Exam Exam General: Pleasant male, answering questions appropriately. HEENT: Atraumatic, normocephalic. The pupils are equal, round and reactive. Extraocular motor are intact. Neck: Supple with full range of motion. + JVD, No rigidity or meningismus, Chest: Nontender Lungs: Clear to auscultation bilaterally. diminished at bases with crackles. no wheezing Heart: Normal S1-S2, Regular rhythm and rate. No murmur, S3, or S4 Abdomen: Soft , nontender to palpation, nondistended , bowel sounds are present. No guarding no rebound tenderness , No masses or organomegaly. No costovertebral temporal angle mass Extremities: moving all extremities. no cyanosis or clubbing Neurologic: CN 2-12 intact. No focal deficits, motor and sensory intact. Skin: lower extremity venous stasis changes, no erythema or warmth appreciated. Additional Comments Home medications reviewed PROCEDURE: XR Chest. CLINICAL INDICATION: Chest Pain. TECHNIQUE: Portable AP view of the chest was obtained. COMPARISON: CR 06/14/2018 FINDINGS: Mild partial atelectasis in the lung bases. No effusion or pneumothorax. Mild cardiomegaly. No acute osseous abnormality. IMPRESSION: Mild cardiomegaly. Mild bibasilar partial atelectasis. RPTAT:AAJJ Physician Marv Date Time Electronically viewed and signed by Jeri Mata Physician on 10/13/2018 13:00 GLADIS CUNHA MD Oct 13, 2018 13:51
[2018-10-13] MEDS ORDERED: MAGNESIUM HYDROXIDE 30ML CUP PO PRN (14:00)
[2018-10-13] MEDS ORDERED: NITROGLYCERIN (SL) 0.4 MG TAB SL PRN (14:00)
[2018-10-13] MEDS ORDERED: DOCUSATE SODIUM 100 MG CAP PO PRN (14:00)
[2018-10-13] MEDS ORDERED: NACL 0.9% 3 ML SYG IV SCH (14:00)
[2018-10-13] MEDS ORDERED: GLUCAGON 1 MG INJ IM PRN (14:30)
[2018-10-13] MEDS ORDERED: GLUCOSE GEL 15 GRAM TUBE PO PRN ×2 (14:30)
[2018-10-13] MEDS ORDERED: DEXTROSE 50% 50 ML SYRINGE IV PRN ×2 (14:30)
[2018-10-13] MEDS ORDERED: GLUCOSE GEL 15 GRAM TUBE BUCCAL PRN (14:30)
[2018-10-13] MEDS: NICOTINE (7 MG/24 HR) PATCH TRANSDERM SCH (17:54)
[2018-10-13] MEDS ORDERED: BUMETANIDE 1 MG INJ IV SCH (18:00)
[2018-10-13 21:00] VITALS: BP 183/88; PULSE 80; RESP 20
[2018-10-13 21:30] VITALS: Ht 170.2 cm; Wt 99.9 kg
[2018-10-13] MEDS ORDERED: NIFEdipine (XL) 30 MG TAB PO STA (22:03)
--- NOTE | 2018-10-13 22:04 | CONS ---
Assessment/Plan Assessment/Plan Assessment/Plan (Daily) 1. ALEX on CKD III due to hemodynamics from CHF 2.acute CHF, acute on chronic systolic + diastolic 3. 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 H/o DM II 5. H/o HL 6. h/O HTN Plan: ECHO showed 55-60 %. Stage II diastolic dysfunction Lasix 40mg IV BID Thanks for consultation, I will continue to follow up Consultation Date/Type/Reason Admit Date/Time 10/13/18 Date of Consultation: Oct 13, 2018 Type of Consult NEPHROLOGY Reason for Consultation acute kidney injury on CKD, Accelerated HTN Requesting Provider: GLADIS CUNHA MD Date/Time of Note DATE: 10/13/18 TIME: 22:04 Hx of Present Illness 48 yo M PMH diabetes and hypertension presented to ED with worsening shortness of breath and difficulty ambulating. Patient states he was recently at [facility] for one week and denies being told anything was wrong with his heart., pt gets admitted for acute CHF exacerbation, on BUN/Cr 44/2.62- Renal has been consulted for ALEX on CKD III Constitutional: poor po Eyes: no complaints ENT: no complaints Respiratory: pleuritic pain, shortness of breath Cardiovascular: no complaints Gastrointestinal: no complaints Genitourinary: no complaints Musculoskeletal: no complaints Skin: no complaints Neurologic: no complaints Endocrine: no complaints Lymphatic: no complaints Psychological: no complaints Immunologic: no complaints Past Medical History Medical History: diabetes, high cholesterol, hypertension Home Meds Reported Medications Ergocalciferol (Vitamin D2) (VITAMIN D2) 50,000 Unit Capsule, 51430 UNIT PO EVERY SUNDAY, CAP 10/13/18 Amlodipine Besylate* (Amlodipine Besylate*) 10 Mg Tablet, 10 MG PO DAILY, #30 TAB 10/13/18 Atorvastatin* (Atorvastatin*) 40 Mg Tablet, 40 MG PO QHS, #30 TAB 10/13/18 Metformin Hcl* (Metformin Hcl* ER) 1,000 Mg Tab.er.24, 1000 MG PO BID, #30 TAB 10/13/18 Ferrous Sulfate* (Ferrous Sulfate*) 325 Mg Tabec, 325 MG PO DAILY, TAB 10/13/18 Hydralazine Hcl* (Hydralazine Hcl*) 100 Mg Tablet, 100 MG PO BID, #90 TAB 10/13/18 Insulin Glargine,Hum.rec.anlog (Paz Milligan U-100) 100 Unit/1 Ml Insuln.pen, 8 UNIT SC QHS, EA 10/13/18 Carvedilol* (Carvedilol*) 25 Mg Tablet, 25 MG PO BID, #60 TAB 10/13/18 Bumetanide* (Bumetanide*) 1 Mg Tablet, 1 MG PO BID, TAB 10/13/18 Discontinued Reported Medications Insulin Glargine* (Lantus*) 100 Unit/Ml Soln, 12 UNIT SC QHS, #1 VIAL 09/07/16 Metformin* (Glucophage*) 1,000 Mg Tablet, 1000 MG PO WITH BREAKFAST DINNE, #60 TAB 09/07/16 Medications Current Medications Ondansetron HCl (Zofran Inj) 4 mg ER BRIDGE PRN IV NAUSEA/VOMITING; Start 10/13/18 at 13:30; Stop 10/14/18 at 13:29 Acetaminophen (Tylenol Tab) 650 mg ER BRIDGE PRN PO .MILD PAIN 1-3 OR TEMP; Start 10/13/18 at 13:30; Stop 10/14/18 at 13:29 Amlodipine Besylate (Norvasc) 10 mg DAILY PO ; Start 10/14/18 at 09:00 Atorvastatin Calcium (Lipitor) 40 mg QHS PO ; Start 10/13/18 at 21:00 Carvedilol (Coreg) 25 mg BID PO ; Start 10/13/18 at 21:00 Ferrous Sulfate (Ferrous Sulfate (Ec)) 325 mg DAILY PO ; Start 10/14/18 at 09:00 Hydralazine HCl (Apresoline) 100 mg BID PO ; Start 10/13/18 at 21:00 Insulin Glargine (Lantus) 8 unit QHS SC ; Start 10/13/18 at 21:00 IV Flush (NS 3 ml) 3 ml PER PROTOCOL IV ; Start 10/13/18 at 14:00 Ondansetron HCl (Zofran Inj) 4 mg Q6H PRN IV NAUSEA/VOMITING; Start 10/13/18 at 14:00 Nitroglycerin (Nitroglycerin (Sl Tab) 0.4 Mg) 1 tab Q5M PRN SL .CHEST PAIN; Start 10/13/18 at 14:00 Acetaminophen (Tylenol Tab) 650 mg Q6H PRN PO .PAIN 1-3 OR TEMP; Start 10/13/18 at 14:00 Docusate Sodium (Colace) 100 mg Q12H PRN PO .CONSTIPATION; Start 10/13/18 at 14 :00 Magnesium Hydroxide (Milk Of Mag) 30 ml DAILY PRN PO .CONSTIPATION; Start 10/13/18 at 14:00 Pantoprazole (Protonix Tab) 40 mg DAILY@06 PO ; Start 10/14/18 at 06:00 Heparin Sodium (Porcine) (Heparin (5000 Units/1ml)) 5,000 unit Q12 SC ; Start 10/13/18 at 21:00 Furosemide (Lasix) 40 mg BID DIURETICS IV ; Start 10/13/18 at 18:00 Miscellaneous Information 1 ea NOTE XX ; Start 10/13/18 at 14:30 Glucose (Glutose) 15 gm Q15M PRN PO DECREASED GLUCOSE; Start 10/13/18 at 14:30 Glucose (Glutose) 22.5 gm Q15M PRN PO DECREASED GLUCOSE; Start 10/13/18 at 14:30 Dextrose (D50w Syringe) 25 ml Q15M PRN IV DECREASED GLUCOSE; Start 10/13/18 at 14:30 Dextrose (D50w Syringe) 50 ml Q15M PRN IV DECREASED GLUCOSE; Start 10/13/18 at 14:30 Glucagon (Glucagen) 1 mg Q15M PRN IM DECREASED GLUCOSE; Start 10/13/18 at 14:30 Glucose (Glutose) 15 gm Q15M PRN BUCCAL DECREASED GLUCOSE; Start 10/13/18 at 14:30 Nicotine (Nicoderm 7 Mg/ 24 Hr) 1 patch DAILY TRANSDERM Last administered on 10/13/18at 17:54; Admin Dose 1 PATCH; Start 10/13/18 at 16:00 Insulin Aspart (Novolog Insulin Pen) NOVOLOG *MILD* ALGORITHM WITH MEALS BEDTIME SC ; Start 10/13/18 at 18:00 Allergies: Coded Allergies: No Known Allergy (Unverified , 10/13/18) Past Surgical History Past Surgical Hx: no surgical history, other Family History Significant Family History: no pertinent family hx Social History Alcohol Use: none Smoking Status: Current every day smoker Drug Use: none Exam/Review of Systems Exam Vitals Vital Signs Date Temp Pulse Resp B/P (MAP) Pulse Ox O2 O2 Flow FiO2 Time Delivery Rate 10/13/18 97.7 80 20 183/88 97 21:00 (119) 10/13/18 Room Air 20:30 Constitutional: alert Head: lacerations ENMT: nl external ears & nose Respiratory: congested cough, crackles/rales, diminished breath sounds Cardiovascular: regular rate and rhythm Gastrointestinal: soft, non-tender Musculoskeletal: swelling (2-3+ pitting edema ) Skin: nl turgor Lymph: nl lymph nodes Results Result Diagram: 10/13/18 1226 10/13/18 1226 Results 24hrs Laboratory Tests Test 10/13/18 12:26 10/13/18 16:41 10/13/18 18:06 White Blood Count 5.9 Red Blood Count 2.64 #L Hemoglobin 7.7 #L Hematocrit 24.0 #L Mean Corpuscular Volume 90.9 Mean Corpuscular Hemoglobin 29.2 Mean Corpuscular Hemoglobin Concent 32.1 Red Cell Distribution Width 14.6 #H Platelet Count 193 Mean Platelet Volume 11.1 H Immature Granulocytes % 0.300 Neutrophils % 67.2 Lymphocytes % 16.5 Monocytes % 9.6 Eosinophils % 5.4 Basophils % 1.0 Nucleated Red Blood Cells % 0.0 Immature Granulocytes # 0.020 Neutrophils # 4.0 Lymphocytes # 1.0 Monocytes # 0.6 Eosinophils # 0.3 Basophils # 0.1 Nucleated Red Blood Cells # 0.0 Prothrombin Time 12.8 Prothrombin Time Ratio 1.0 INR International Normalized Ratio 0.95 Activated Partial Thromboplast Time 31.5 Sodium Level 144 Potassium Level 4.9 Chloride Level 114 H Carbon Dioxide Level 23 Anion Gap 7 Blood Urea Nitrogen 44 H Creatinine 2.62 H Est Glomerular Filtrat Rate mL/min 26 L Glucose Level 92 Hemoglobin A1c 5.8 Calcium Level 8.2 L Iron Level 46 Total Iron Binding Capacity 183 L Percent Iron Saturation 25 Total Bilirubin 0.5 Direct Bilirubin 0.00 Indirect Bilirubin 0.5 Aspartate Amino Transf (AST/SGOT) 23 Alanine Aminotransferase (ALT/SGPT) 23 Alkaline Phosphatase 103 Troponin I < 0.012 < 0.012 B-Type Natriuretic Peptide 4070 H Total Protein 6.3 Albumin 3.2 L Globulin 3.10 Albumin/Globulin Ratio 1.03 Creatine Kinase 389 H Creatine Kinase Index 1.2 Creatinine Kinase MB (Mass) 4.68 H Bedside Glucose 80 Medications Medication Current Medications Ondansetron HCl (Zofran Inj) 4 mg ER BRIDGE PRN IV NAUSEA/VOMITING; Start 10/13/18 at 13:30; Stop 10/14/18 at 13:29 Acetaminophen (Tylenol Tab) 650 mg ER BRIDGE PRN PO .MILD PAIN 1-3 OR TEMP; Start 10/13/18 at 13:30; Stop 10/14/18 at 13:29 Amlodipine Besylate (Norvasc) 10 mg DAILY PO ; Start 10/14/18 at 09:00 Atorvastatin Calcium (Lipitor) 40 mg QHS PO ; Start 10/13/18 at 21:00 Carvedilol (Coreg) 25 mg BID PO ; Start 10/13/18 at 21:00 Ferrous Sulfate (Ferrous Sulfate (Ec)) 325 mg DAILY PO ; Start 10/14/18 at 09:00 Hydralazine HCl (Apresoline) 100 mg BID PO ; Start 10/13/18 at 21:00 Insulin Glargine (Lantus) 8 unit QHS SC ; Start 10/13/18 at 21:00 IV Flush (NS 3 ml) 3 ml PER PROTOCOL IV ; Start 10/13/18 at 14:00 Ondansetron HCl (Zofran Inj) 4 mg Q6H PRN IV NAUSEA/VOMITING; Start 10/13/18 at 14:00 Nitroglycerin (Nitroglycerin (Sl Tab) 0.4 Mg) 1 tab Q5M PRN SL .CHEST PAIN; Start 10/13/18 at 14:00 Acetaminophen (Tylenol Tab) 650 mg Q6H PRN PO .PAIN 1-3 OR TEMP; Start 10/13/18 at 14:00 Docusate Sodium (Colace) 100 mg Q12H PRN PO .CONSTIPATION; Start 10/13/18 at 14:00 Magnesium Hydroxide (Milk Of Mag) 30 ml DAILY PRN PO .CONSTIPATION; Start 10/13/18 at 14:00 Pantoprazole (Protonix Tab) 40 mg DAILY@06 PO ; Start 10/14/18 at 06:00 Heparin Sodium (Porcine) (Heparin (5000 Units/1ml)) 5,000 unit Q12 SC ; Start 10/13/18 at 21:00 Furosemide (Lasix) 40 mg BID DIURETICS IV ; Start 10/13/18 at 18:00 Miscellaneous Information 1 ea NOTE XX ; Start 10/13/18 at 14:30 Glucose (Glutose) 15 gm Q15M PRN PO DECREASED GLUCOSE; Start 10/13/18 at 14:30 Glucose (Glutose) 22.5 gm Q15M PRN PO DECREASED GLUCOSE; Start 10/13/18 at 14:30 Dextrose (D50w Syringe) 25 ml Q15M PRN IV DECREASED GLUCOSE; Start 10/13/18 at 14:30 Dextrose (D50w Syringe) 50 ml Q15M PRN IV DECREASED GLUCOSE; Start 10/13/18 at 14:30 Glucagon (Glucagen) 1 mg Q15M PRN IM DECREASED GLUCOSE; Start 10/13/18 at 14:30 Glucose (Glutose) 15 gm Q15M PRN BUCCAL DECREASED GLUCOSE; Start 10/13/18 at 14:30 Nicotine (Nicoderm 7 Mg/ 24 Hr) 1 patch DAILY TRANSDERM Last administered on 10/13/18at 17:54; Admin Dose 1 PATCH; Start 10/13/18 at 16:00 Insulin Aspart (Novolog Insulin Pen) NOVOLOG *MILD* ALGORITHM WITH MEALS BEDTIME SC ; Start 10/13/18 at 18:00 ANAMARIA SEAMAN MD Oct 13, 2018 22:04
[2018-10-13] MEDS: ATORVASTATIN 40 MG TAB PO SCH (22:46)
[2018-10-13] MEDS: INSULIN ASPART [NOVOLOG] 3 ML PEN SC SCH ×2 (23:13→23:41)
[2018-10-13] MEDS: HEPARIN 5,000 UNIT/1 ML VIAL SC SCH (23:40)
[2018-10-13] MEDS: FUROSEMIDE 40 MG INJ IV SCH (23:42)
[2018-10-13] MEDS: INSULIN GLARGINE [LANtus] 3 ML PEN SC SCH (23:55)
[2018-10-13 23:58] VITALS: BP 167/75; PULSE 77; RESP 20
[2018-10-14 05:04] VITALS: BP 131/67; PULSE 72; RESP 20
[2018-10-14] MEDS: PANTOPRAZOLE (EC) 40 MG TAB PO SCH (06:30)
[2018-10-14] MEDS: FUROSEMIDE 40 MG INJ IV SCH ×2 (06:31→17:10)
[2018-10-14] MEDS: INSULIN ASPART [NOVOLOG] 3 ML PEN SC SCH ×4 (07:55→21:41)
[2018-10-14 07:58] VITALS: BP 128/63; PULSE 63; RESP 18
--- NOTE | 2018-10-14 08:06 | RADRPT ---
Echocardiogram Report Patient Name: Maritza SOAREStient ID: [id number] : 1970 (48y )Study Date: 10/13/2018 2:15:15 PM Gender: MAccession #: [id number] Tech: London Comer RDCS Location: E/R Ref.Physician: GLADIS CUNHA Height(Cm): BSA: Weight(Kg): Quality: AdequateOrder Physician: GLADIS CUNHA Account #: Procedures: Echocardiographic Report: Transthoracic echocardiogram with complete 2D, M-Mode, and doppler examination. Indications: Evaluate Left Ventricular function. Measurements: 2D/M Mode Doppler Measurement Value Normal Range Measurement Value Normal Range LVIDd 2D 4.3 [ 4.2 - 5.8 ] cm AV Peak Abraham 1.6 [ 100.0 - 170.0 ] cm/se c LVIDs 2D 2.7 [ 2.5 - 4.0 ] cm AV Peak PG 10.0 [ 2.0 - 9.0 ] mmHg LVPWd 2D 1.2 [ 0.6 - 1.0 ] cm LVOT Peak Abraham 1.2 [ 70.0 - 110.0 ] cm/sec IVSd 2D 0.8 [ 0.6 - 1.0 ] cm LVOT Peak PG 6.0 [ 2.0 - 6.0 ] mmHg AoR Diam 2D 2.4 [ 2.6 - 3.4 ] cm MV E Peak Abraham 1.0 [ 60.0 - 130.0 ] cm/sec EDV 2D 82.6 [ 62.0 - 150.0 ] ml MV A Peak Abrhaam 0.6 [ 100.0 - 120.0 ] cm/se c ESV 2D 28.0 [ 21.0 - 61.0 ] ml MV E/A 1.7 [ 0.8 - 1.5 ] ratio EF 2D 66.1 [ 52.0 - 72.0 ] percent MV PHT 57.0 [ 20.0 - 100.0 ] msec LA Dimen 2D 4.0 [ 3.0 - 4.0 ] cm MV Decel Time 195 [ 104 - 258 ] msec MV Decel [place] Lat E` Abraham 0.1 [ 10.0 - 15.0 ] cm/sec Lateral E/E` 11.4 [ 1.0 - 2.0 ] ratio Med E` Abraham 0.1 cm/sec MV E/A 1.7 [ 0.8 - 1.5 ] ratio MVA PHT 3.9 [ 2.0 - 4.0 ] cm2 PV Peak Abraham 1.1 [ 40.0 - 80.0 ] cm/sec PV Peak PG 5.0 mmHg Findings: Left Ventricle: Normal left ventricular systolic function. Normal left ventricular cavity size. Mild concentric left ventricular hypertrophy. Ejection fraction is visually estimated at 55-60 %. Tissue Doppler/Mitral Doppler indices are consistent with pseudonormalization with mildly elevated left atrial pressure (Stage II diastolic dysfunction). Right Ventricle: Normal right ventricular size. Normal right ventricular systolic function. Left Atrium: There is moderate enlargement of left atrium. Right Atrium: There is mild enlargement of right atrium. Atrial Septum: Normal atrial septum. Not well visualized. Ventricular septum: Normal/intact ventricular septum. Mitral Valve: Normal appearance of the mitral valve. Trace mitral regurgitation. Aortic Valve: Normal appearance of the aortic valve. No significant aortic stenosis or insufficiency. Tricuspid Valve: Normal appearance of the tricuspid valve. Unable to obtain RVSP due to minimal presence of tricuspid regurgitation. There is trace to mild tricuspid regurgitation. Pulmonic Valve: Normal pulmonic valve appearance. No evidence of pulmonic regurgitation. Pericardium: Small pericardial effusion. Aorta: Normal aortic root. IVC: Normal size and normal respiratory collapse consistent with normal right atrial pressure. Conclusions: Normal left ventricular systolic function. Normal left ventricular cavity size. Mild concentric left ventricular hypertrophy. Ejection fraction is visually estimated at 55-60 %. Tissue Doppler/Mitral Doppler indices are consistent with pseudonormalization with mildly elevated left atrial pressure (Stage II diastolic dysfunction). No significant valvular stenosis or regurgitation seen. Small pericardial effusion. Unable to obtain RVSP due to minimal presence of tricuspid regurgitation. Normal size and normal respiratory collapse consistent with normal right atrial pressure. Electronically Signed By: Rodolfo Gutiérrez 2018-10-14 08:05:25 PDT
[2018-10-14] MEDS: AMLODIPINE 10 MG TAB PO SCH (09:39)
[2018-10-14] MEDS: FERROUS SULFATE (EC) 325 MG TAB PO SCH (09:39)
[2018-10-14] MEDS: NICOTINE (7 MG/24 HR) PATCH TRANSDERM SCH (09:41)
[2018-10-14] MEDS: HEPARIN 5,000 UNIT/1 ML VIAL SC SCH ×2 (09:48→22:25)
--- NOTE | 2018-10-14 11:27 | CONS ---
Assessment/Plan Assessment/Plan Hospital Course (Demo Recall) Acute on chronic diastolic heart failure: EF preserved, grade 2 diastolic dysfunction. Remains decompensated on exam HTN CKD: unknown baseline. Stable mid 2s so far with diuresis -continue lasix 40mng IV BID -coreg 25mg BID -amlodipine 10mg Consultation Date/Type/Reason Admit Date/Time 10/13/18 Date of Consultation: Oct 14, 2018 Type of Consult Cardiology Reason for Consultation CHF Requesting Provider: GLADIS CUNHA MD Date/Time of Note DATE: 10/14/18 TIME: 11:22 Hx of Present Illness 48 yo M with a h/o chronic diastolic CHF, HTN, CKD, presenting with dyspnea and leg/scrotal edema. He notes that he was recently at [facility] and was discharged even though he was having dyspnea and edema. No chest pain. Feels better after diuresis overnight per HPI Past Medical History per HPI Home Meds Reported Medications Ergocalciferol (Vitamin D2) (VITAMIN D2) 50,000 Unit Capsule, 93497 UNIT PO EVERY SUNDAY, CAP 10/13/18 Amlodipine Besylate* (Amlodipine Besylate*) 10 Mg Tablet, 10 MG PO DAILY, #30 TAB 10/13/18 Atorvastatin* (Atorvastatin*) 40 Mg Tablet, 40 MG PO QHS, #30 TAB 10/13/18 Metformin Hcl* (Metformin Hcl* ER) 1,000 Mg Tab.er.24, 1000 MG PO BID, #30 TAB 10/13/18 Ferrous Sulfate* (Ferrous Sulfate*) 325 Mg Tabec, 325 MG PO DAILY, TAB 10/13/18 Hydralazine Hcl* (Hydralazine Hcl*) 100 Mg Tablet, 100 MG PO BID, #90 TAB 10/13/18 Insulin Glargine,Hum.rec.anlog (Basaglar Kwikpen U-100) 100 Unit/1 Ml Insuln.pen, 8 UNIT SC QHS, EA 10/13/18 Carvedilol* (Carvedilol*) 25 Mg Tablet, 25 MG PO BID, #60 TAB 10/13/18 Bumetanide* (Bumetanide*) 1 Mg Tablet, 1 MG PO BID, TAB 10/13/18 Discontinued Reported Medications Insulin Glargine* (Lantus*) 100 Unit/Ml Soln, 12 UNIT SC QHS, #1 VIAL 09/07/16 Metformin* (Glucophage*) 1,000 Mg Tablet, 1000 MG PO WITH BREAKFAST DINNE, #60 TAB 09/07/16 Medications Current Medications Ondansetron HCl (Zofran Inj) 4 mg ER BRIDGE PRN IV NAUSEA/VOMITING; Start 10/13/18 at 13:30; Stop 10/14/18 at 13:29 Acetaminophen (Tylenol Tab) 650 mg ER BRIDGE PRN PO .MILD PAIN 1-3 OR TEMP; Start 10/13/18 at 13:30; Stop 10/14/18 at 13:29 Amlodipine Besylate (Norvasc) 10 mg DAILY PO Last administered on 10/14/18at 09:39; Admin Dose 10 MG; Start 10/14/18 at 09:00 Atorvastatin Calcium (Lipitor) 40 mg QHS PO Last administered on 10/13/18at 22:46; Admin Dose 40 MG; Start 10/13/18 at 21:00 Carvedilol (Coreg) 25 mg BID PO Last administered on 10/14/18at 09:40; Admin Dose 25 MG; Start 10/13/18 at 21:00 Ferrous Sulfate (Ferrous Sulfate (Ec)) 325 mg DAILY PO Last administered on 10/14/18at 09:39; Admin Dose 325 MG; Start 10/14/18 at 09:00 Hydralazine HCl (Apresoline) 100 mg BID PO Last administered on 10/14/18at 09:40; Admin Dose 100 MG; Start 10/13/18 at 21:00 Insulin Glargine (Lantus) 8 unit QHS SC Last administered on 10/13/18at 23:55; Admin Dose 8 UNIT; Start 10/13/18 at 21:00 IV Flush (NS 3 ml) 3 ml PER PROTOCOL IV ; Start 10/13/18 at 14:00 Ondansetron HCl (Zofran Inj) 4 mg Q6H PRN IV NAUSEA/VOMITING; Start 10/13/18 at 14:00 Nitroglycerin (Nitroglycerin (Sl Tab) 0.4 Mg) 1 tab Q5M PRN SL .CHEST PAIN; Start 10/13/18 at 14:00 Acetaminophen (Tylenol Tab) 650 mg Q6H PRN PO .PAIN 1-3 OR TEMP; Start 10/13/18 at 14:00 Docusate Sodium (Colace) 100 mg Q12H PRN PO .CONSTIPATION; Start 10/13/18 at 14:00 Magnesium Hydroxide (Milk Of Mag) 30 ml DAILY PRN PO .CONSTIPATION; Start 10/13/18 at 14:00 Pantoprazole (Protonix Tab) 40 mg DAILY@06 PO Last administered on 10/14/18at 06:30; Admin Dose 40 MG; Start 10/14/18 at 06:00 Heparin Sodium (Porcine) (Heparin (5000 Units/1ml)) 5,000 unit Q12 SC Last administered on 10/14/18at 09:48; Admin Dose 5,000 UNIT; Start 10/13/18 at 21:00 Furosemide (Lasix) 40 mg BID DIURETICS IV Last administered on 10/14/18at 06:31; Admin Dose 40 MG; Start 10/13/18 at 18:00 Miscellaneous Information 1 ea NOTE XX ; Start 10/13/18 at 14:30 Glucose (Glutose) 15 gm Q15M PRN PO DECREASED GLUCOSE; Start 10/13/18 at 14:30 Glucose (Glutose) 22.5 gm Q15M PRN PO DECREASED GLUCOSE; Start 10/13/18 at 14:30 Dextrose (D50w Syringe) 25 ml Q15M PRN IV DECREASED GLUCOSE; Start 10/13/18 at 14:30 Dextrose (D50w Syringe) 50 ml Q15M PRN IV DECREASED GLUCOSE; Start 10/13/18 at 14:30 Glucagon (Glucagen) 1 mg Q15M PRN IM DECREASED GLUCOSE; Start 10/13/18 at 14:30 Glucose (Glutose) 15 gm Q15M PRN BUCCAL DECREASED GLUCOSE; Start 10/13/18 at 14:30 Nicotine (Nicoderm 7 Mg/ 24 Hr) 1 patch DAILY TRANSDERM Last administered on 10/14/18at 09:41; Admin Dose 1 PATCH; Start 10/13/18 at 16:00 Insulin Aspart (Novolog Insulin Pen) NOVOLOG *MILD* ALGORITHM WITH MEALS BEDTIME SC ; Start 10/13/18 at 18:00 Allergies: Coded Allergies: No Known Allergy (Unverified , 10/13/18) Past Surgical History Past Surgical Hx: no surgical history Social History Alcohol Use: none Smoking Status: Current every day smoker Drug Use: none Exam/Review of Systems Vital Signs Vitals Vital Signs Date Temp Pulse Resp B/P (MAP) Pulse Ox O2 O2 Flow FiO2 Time Delivery Rate 10/14/18 98.0 63 18 128/63 98 07:58 (84) 10/13/18 Room Air 20:30 Intake and Output 10/13/18 10/13/18 10/14/18 1515:00 23:00 07:00 OutputOutput Total 2000 ml 1250 ml BalanceBalance -2000 ml -1250 ml Exam Constitutional: alert, oriented Head: normocephalic, atraumatic Neck: supple, jvd (10cm) Respiratory: crackles/rales; No clear to auscultation Cardiovascular: regular rate and rhythm, edema (2+); No systolic murmur Gastrointestinal: soft, non-tender, distended Neurological: nl mental status, nl speech Labs Result Diagram: 10/14/18 0611 10/14/18 0610 Results 24hrs Laboratory Tests Test 10/13/18 12:26 10/13/18 16:41 10/13/18 18:06 10/13/18 22:45 White Blood Count 5.9 Red Blood Count 2.64 #L Hemoglobin 7.7 #L Hematocrit 24.0 #L Mean Corpuscular 90.9 Volume Mean Corpuscular 29.2 Hemoglobin Mean Corpuscular 32.1 Hemoglobin Concent Red Cell 14.6 #H Distribution Width Platelet Count 193 Mean Platelet Volume 11.1 H Immature 0.300 Granulocytes % Neutrophils % 67.2 Lymphocytes % 16.5 Monocytes % 9.6 Eosinophils % 5.4 Basophils % 1.0 Nucleated Red Blood 0.0 Cells % Immature 0.020 Granulocytes # Neutrophils # 4.0 Lymphocytes # 1.0 Monocytes # 0.6 Eosinophils # 0.3 Basophils # 0.1 Nucleated Red Blood 0.0 Cells # Prothrombin Time 12.8 Prothrombin Time 1.0 Ratio INR International 0.95 Normalized Ratio Activated 31.5 Partial Thromboplast Time Sodium Level 144 Potassium Level 4.9 Chloride Level 114 H Carbon Dioxide Level 23 Anion Gap 7 Blood Urea Nitrogen 44 H Creatinine 2.62 H Est Glomerular 26 L Filtrat Rate mL/min Glucose Level 92 Hemoglobin A1c 5.8 Calcium Level 8.2 L Iron Level 46 Total Iron Binding 183 L Capacity Percent Iron 25 Saturation Total Bilirubin 0.5 Direct Bilirubin 0.00 Indirect Bilirubin 0.5 Aspartate Amino 23 Transf (AST/SGOT) Alanine 23 Aminotransferase (AL T/SGPT) Alkaline Phosphatase 103 Troponin I < 0.012 < 0.012 B-Type Natriuretic 4070 H Peptide Total Protein 6.3 Albumin 3.2 L Globulin 3.10 Albumin/Globulin 1.03 Ratio Creatine Kinase 389 H Creatine Kinase 1.2 Index Creatinine Kinase MB 4.68 H (Mass) Bedside Glucose 80 175 Test 10/14/18 00:23 10/14/18 02:30 10/14/18 06:10 10/14/18 06:11 Creatine Kinase 368 H 289 H Creatine Kinase 1.3 Index Creatinine Kinase MB 4.72 H (Mass) Troponin I < 0.012 Urine Random 16.92 L Creatinine Urine Random Sodium 137 H Urine 7.50 Protein/Creatinine Ratio Urine Total Protein 127.0 H Sodium Level 143 Potassium Level 4.9 Chloride Level 114 H Carbon Dioxide Level 24 Anion Gap 5 Blood Urea Nitrogen 45 H Creatinine 2.46 H Est Glomerular 28 L Filtrat Rate mL/min Glucose Level 71 Calcium Level 8.3 L Magnesium Level 2.5 White Blood Count 5.7 Red Blood Count 2.51 L Hemoglobin 7.4 L Hematocrit 23.0 L Mean Corpuscular 91.6 Volume Mean Corpuscular 29.5 Hemoglobin Mean Corpuscular 32.2 Hemoglobin Concent Red Cell 14.4 Distribution Width Platelet Count 188 Mean Platelet Volume 11.6 H Immature 0.200 Granulocytes % Neutrophils % 61.4 Lymphocytes % 20.5 Monocytes % 9.2 Eosinophils % 7.6 H Basophils % 1.1 Nucleated Red Blood 0.0 Cells % Immature 0.010 Granulocytes # Neutrophils # 3.5 Lymphocytes # 1.2 Monocytes # 0.5 Eosinophils # 0.4 Basophils # 0.1 Nucleated Red Blood 0.0 Cells # Uric Acid 8.4 H Test 10/14/18 08:29 Bedside Glucose 82 Medications Medications Current Medications Ondansetron HCl (Zofran Inj) 4 mg ER BRIDGE PRN IV NAUSEA/VOMITING; Start 10/13/18 at 13:30; Stop 10/14/18 at 13:29 Acetaminophen (Tylenol Tab) 650 mg ER BRIDGE PRN PO .MILD PAIN 1-3 OR TEMP; Start 10/13/18 at 13:30; Stop 10/14/18 at 13:29 Amlodipine Besylate (Norvasc) 10 mg DAILY PO Last administered on 10/14/18at 09:39; Admin Dose 10 MG; Start 10/14/18 at 09:00 Atorvastatin Calcium (Lipitor) 40 mg QHS PO Last administered on 10/13/18at 22:46; Admin Dose 40 MG; Start 10/13/18 at 21:00 Carvedilol (Coreg) 25 mg BID PO Last administered on 10/14/18at 09:40; Admin Dose 25 MG; Start 10/13/18 at 21:00 Ferrous Sulfate (Ferrous Sulfate (Ec)) 325 mg DAILY PO Last administered on 10/14/18at 09:39; Admin Dose 325 MG; Start 10/14/18 at 09:00 Hydralazine HCl (Apresoline) 100 mg BID PO Last administered on 10/14/18 09:40; Admin Dose 100 MG; Start 10/13/18 at 21:00 Insulin Glargine (Lantus) 8 unit QHS SC Last administered on 10/13/18at 23:55; Admin Dose 8 UNIT; Start 10/13/18 at 21:00 IV Flush (NS 3 ml) 3 ml PER PROTOCOL IV ; Start 10/13/18 at 14:00 Ondansetron HCl (Zofran Inj) 4 mg Q6H PRN IV NAUSEA/VOMITING; Start 10/13/18 at 14:00 Nitroglycerin (Nitroglycerin (Sl Tab) 0.4 Mg) 1 tab Q5M PRN SL .CHEST PAIN; St art 10/13/18 at 14:00 Acetaminophen (Tylenol Tab) 650 mg Q6H PRN PO .PAIN 1-3 OR TEMP; Start 10/13/18 at 14:00 Docusate Sodium (Colace) 100 mg Q12H PRN PO .CONSTIPATION; Start 10/13/18 at 14:00 Magnesium Hydroxide (Milk Of Mag) 30 ml DAILY PRN PO .CONSTIPATION; Start 10/13/18 at 14:00 Pantoprazole (Protonix Tab) 40 mg DAILY@06 PO Last administered on 10/14/18at 06:30; Admin Dose 40 MG; Start 10/14/18 at 06:00 Heparin Sodium (Porcine) (Heparin (5000 Units/1ml)) 5,000 unit Q12 SC Last administered on 10/14/18at 09:48; Admin Dose 5,000 UNIT; Start 10/13/18 at 21:00 Furosemide (Lasix) 40 mg BID DIURETICS IV Last administered on 10/14/18at 06:31; Admin Dose 40 MG; Start 10/13/18 at 18:00 Miscellaneous Information 1 ea NOTE XX ; Start 10/13/18 at 14:30 Glucose (Glutose) 15 gm Q15M PRN PO DECREASED GLUCOSE; Start 10/13/18 at 14:30 Glucose (Glutose) 22.5 gm Q15M PRN PO DECREASED GLUCOSE; Start 10/13/18 at 14:30 Dextrose (D50w Syringe) 25 ml Q15M PRN IV DECREASED GLUCOSE; Start 10/13/18 at 14:30 Dextrose (D50w Syringe) 50 ml Q15M PRN IV DECREASED GLUCOSE; Start 10/13/18 at 14:30 Glucagon (Glucagen) 1 mg Q15M PRN IM DECREASED GLUCOSE; Start 10/13/18 at 14:30 Glucose (Glutose) 15 gm Q15M PRN BUCCAL DECREASED GLUCOSE; Start 10/13/18 at 14:30 Nicotine (Nicoderm 7 Mg/ 24 Hr) 1 patch DAILY TRANSDERM Last administered on 10/14/18at 09:41; Admin Dose 1 PATCH; Start 10/13/18 at 16:00 Insulin Aspart (Novolog Insulin Pen) NOVOLOG *MILD* ALGORITHM WITH MEALS BEDTIME SC ; Start 10/13/18 at 18:00 BRADEN GARCIA Oct 14, 2018 11:27
--- NOTE | 2018-10-14 11:50 | CONS ---
Assessment/Plan Assessment/Plan Assessment/Plan (Daily) 1. ALEX on CKD III due to hemodynamics from CHF 2.acute CHF, acute on chronic systolic + diastolic 3. 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 H/o DM II 5. H/o HL 6. h/O HTN Plan: ECHO showed 55-60 %. Stage II diastolic dysfunction iron saturation 25%- will give ferrlecit x 5 doses Lasix 40mg IV BID will follow up Consultation Date/Type/Reason Admit Date/Time Oct 13, 2018 at 13:26 Initial Consult Date 10/14/18 Type of Consult NEPHROLOGY Requesting Provider: GLADIS CUNHA MD Date/Time of Note DATE: 10/14/18 TIME: 11:50 Exam/Review of Systems Exam Vitals Vital Signs Date Temp Pulse Resp B/P (MAP) Pulse Ox O2 O2 Flow FiO2 Time Delivery Rate 10/14/18 98.0 63 18 128/63 98 07:58 (84) 10/13/18 Room Air 20:30 Intake and Output 10/13/18 10/13/18 10/14/18 1515:00 23:00 07:00 OutputOutput Total 2000 ml 1250 ml BalanceBalance -2000 ml -1250 ml Results Result Diagram: 10/14/18 0611 10/14/18 0610 Results 24hrs Laboratory Tests Test 10/13/18 12:26 10/13/18 16:41 10/13/18 18:06 10/13/18 22:45 White Blood Count 5.9 Red Blood Count 2.64 #L Hemoglobin 7.7 #L Hematocrit 24.0 #L Mean Corpuscular 90.9 Volume Mean Corpuscular 29.2 Hemoglobin Mean Corpuscular 32.1 Hemoglobin Concent Red Cell 14.6 #H Distribution Width Platelet Count 193 Mean Platelet Volume 11.1 H Immature 0.300 Granulocytes % Neutrophils % 67.2 Lymphocytes % 16.5 Monocytes % 9.6 Eosinophils % 5.4 Basophils % 1.0 Nucleated Red Blood 0.0 Cells % Immature 0.020 Granulocytes # Neutrophils # 4.0 Lymphocytes # 1.0 Monocytes # 0.6 Eosinophils # 0.3 Basophils # 0.1 Nucleated Red Blood 0.0 Cells # Prothrombin Time 12.8 Prothrombin Time 1.0 Ratio INR International 0.95 Normalized Ratio Activated 31.5 Partial Thromboplast Time Sodium Level 144 Potassium Level 4.9 Chloride Level 114 H Carbon Dioxide Level 23 Anion Gap 7 Blood Urea Nitrogen 44 H Creatinine 2.62 H Est Glomerular 26 L Filtrat Rate mL/min Glucose Level 92 Hemoglobin A1c 5.8 Calcium Level 8.2 L Iron Level 46 Total Iron Binding 183 L Capacity Percent Iron 25 Saturation Total Bilirubin 0.5 Direct Bilirubin 0.00 Indirect Bilirubin 0.5 Aspartate Amino 23 Transf (AST/SGOT) Alanine 23 Aminotransferase (AL T/SGPT) Alkaline Phosphatase 103 Troponin I < 0.012 < 0.012 B-Type Natriuretic 4070 H Peptide Total Protein 6.3 Albumin 3.2 L Globulin 3.10 Albumin/Globulin 1.03 Ratio Creatine Kinase 389 H Creatine Kinase 1.2 Index Creatinine Kinase MB 4.68 H (Mass) Bedside Glucose 80 175 Test 10/14/18 00:23 10/14/18 02:30 10/14/18 06:10 10/14/18 06:11 Creatine Kinase 368 H 289 H Creatine Kinase 1.3 Index Creatinine Kinase MB 4.72 H (Mass) Troponin I < 0.012 Urine Eosinophils % 0.0 Urine Random 16.92 L Creatinine Urine Random Sodium 137 H Urine 7.50 Protein/Creatinine Ratio Urine Total Protein 127.0 H Sodium Level 143 Potassium Level 4.9 Chloride Level 114 H Carbon Dioxide Level 24 Anion Gap 5 Blood Urea Nitrogen 45 H Creatinine 2.46 H Est Glomerular 28 L Filtrat Rate mL/min Glucose Level 71 Calcium Level 8.3 L Magnesium Level 2.5 White Blood Count 5.7 Red Blood Count 2.51 L Hemoglobin 7.4 L Hematocrit 23.0 L Mean Corpuscular 91.6 Volume Mean Corpuscular 29.5 Hemoglobin Mean Corpuscular 32.2 Hemoglobin Concent Red Cell 14.4 Distribution Width Platelet Count 188 Mean Platelet Volume 11.6 H Immature 0.200 Granulocytes % Neutrophils % 61.4 Lymphocytes % 20.5 Monocytes % 9.2 Eosinophils % 7.6 H Basophils % 1.1 Nucleated Red Blood 0.0 Cells % Immature 0.010 Granulocytes # Neutrophils # 3.5 Lymphocytes # 1.2 Monocytes # 0.5 Eosinophils # 0.4 Basophils # 0.1 Nucleated Red Blood 0.0 Cells # Uric Acid 8.4 H Test 10/14/18 08:29 Bedside Glucose 82 Medications Medication Current Medications Ondansetron HCl (Zofran Inj) 4 mg ER BRIDGE PRN IV NAUSEA/VOMITING; Start 10/13/18 at 13:30; Stop 10/14/18 at 13:29 Acetaminophen (Tylenol Tab) 650 mg ER BRIDGE PRN PO .MILD PAIN 1-3 OR TEMP; Start 10/13/18 at 13:30; Stop 10/14/18 at 13:29 Amlodipine Besylate (Norvasc) 10 mg DAILY PO Last administered on 10/14/18at 09:39; Admin Dose 10 MG; Start 10/14/18 at 09:00 Atorvastatin Calcium (Lipitor) 40 mg QHS PO Last administered on 10/13/18at 22:46; Admin Dose 40 MG; Start 10/13/18 at 21:00 Carvedilol (Coreg) 25 mg BID PO Last administered on 10/14/18at 09:40; Admin Dose 25 MG; Start 10/13/18 at 21:00 Ferrous Sulfate (Ferrous Sulfate (Ec)) 325 mg DAILY PO Last administered on 10/14/18at 09:39; Admin Dose 325 MG; Start 10/14/18 at 09:00 Hydralazine HCl (Apresoline) 100 mg BID PO Last administered on 10/14/18at 09:40; Admin Dose 100 MG; Start 10/13/18 at 21:00 Insulin Glargine (Lantus) 8 unit QHS SC Last administered on 10/13/18at 23:55; Admin Dose 8 UNIT; Start 10/13/18 at 21:00 IV Flush (NS 3 ml) 3 ml PER PROTOCOL IV ; Start 10/13/18 at 14:00 Ondansetron HCl (Zofran Inj) 4 mg Q6H PRN IV NAUSEA/VOMITING; Start 10/13/18 at 14:00 Nitroglycerin (Nitroglycerin (Sl Tab) 0.4 Mg) 1 tab Q5M PRN SL .CHEST PAIN; Start 10/13/18 at 14:00 Acetaminophen (Tylenol Tab) 650 mg Q6H PRN PO .PAIN 1-3 OR TEMP; Start 10/13/18 at 14:00 Docusate Sodium (Colace) 100 mg Q12H PRN PO .CONSTIPATION; Start 10/13/18 at 14:00 Magnesium Hydroxide (Milk Of Mag) 30 ml DAILY PRN PO .CONSTIPATION; Start 10/13/18 at 14:00 Pantoprazole (Protonix Tab) 40 mg DAILY@06 PO Last administered on 10/14/18at 06:30; Admin Dose 40 MG; Start 10/14/18 at 06:00 Heparin Sodium (Porcine) (Heparin (5000 Units/1ml)) 5,000 unit Q12 SC Last administered on 10/14/18at 09:48; Admin Dose 5,000 UNIT; Start 10/13/18 at 21:00 Furosemide (Lasix) 40 mg BID DIURETICS IV Last administered on 10/14/18at 06:31; Admin Dose 40 MG; Start 10/13/18 at 18:00 Miscellaneous Information 1 ea NOTE XX ; Start 10/13/18 at 14:30 Glucose (Glutose) 15 gm Q15M PRN PO DECREASED GLUCOSE; Start 10/13/18 at 14:30 Glucose (Glutose) 22.5 gm Q15M PRN PO DECREASED GLUCOSE; Start 10/13/18 at 14:30 Dextrose (D50w Syringe) 25 ml Q15M PRN IV DECREASED GLUCOSE; Start 10/13/18 at 14:30 Dextrose (D50w Syringe) 50 ml Q15M PRN IV DECREASED GLUCOSE; Start 10/13/18 at 14:30 Glucagon (Glucagen) 1 mg Q15M PRN IM DECREASED GLUCOSE; Start 10/13/18 at 14:30 Glucose (Glutose) 15 gm Q15M PRN BUCCAL DECREASED GLUCOSE; Start 10/13/18 at 14:30 Nicotine (Nicoderm 7 Mg/ 24 Hr) 1 patch DAILY TRANSDERM Last administered on 10/14/18at 09:41; Admin Dose 1 PATCH; Start 10/13/18 at 16:00 Insulin Aspart (Novolog Insulin Pen) NOVOLOG *MILD* ALGORITHM WITH MEALS BEDTIME SC ; Start 10/13/18 at 18:00 ANAMARIA SEAMAN MD Oct 14, 2018 11:50
[2018-10-14 12:17] VITALS: BP 133/64; PULSE 68; RESP 18
--- NOTE | 2018-10-14 14:00 | PN ---
Date/Time of Note Date/Time of Note DATE: 10/14/18 TIME: 14:00 Objective Vitals Vital Signs Date Temp Pulse Resp B/P (MAP) Pulse Ox O2 O2 Flow FiO2 Time Delivery Rate 10/14/18 98.0 68 18 133/64 98 12:17 (87) 10/13/18 Room Air 20:30 Intake and Output 10/13/18 10/13/18 10/14/18 1414:59 22:59 06:59 OutputOutput Total 2000 ml 1250 ml BalanceBalance -2000 ml -1250 ml Results Result Diagram: 10/14/18 0611 10/14/18 0610 Medications Medications Current Medications Amlodipine Besylate (Norvasc) 10 mg DAILY PO Last administered on 10/14/18at 09:39; Admin Dose 10 MG; Start 10/14/18 at 09:00 Atorvastatin Calcium (Lipitor) 40 mg QHS PO Last administered on 10/13/18at 22:46; Admin Dose 40 MG; Start 10/13/18 at 21:00 Carvedilol (Coreg) 25 mg BID PO Last administered on 10/14/18at 09:40; Admin Dose 25 MG; Start 10/13/18 at 21:00 Ferrous Sulfate (Ferrous Sulfate (Ec)) 325 mg DAILY PO Last administered on 10/14/18at 09:39; Admin Dose 325 MG; Start 10/14/18 at 09:00 Hydralazine HCl (Apresoline) 100 mg BID PO Last administered on 10/14/18at 09:40; Admin Dose 100 MG; Start 10/13/18 at 21:00 Insulin Glargine (Lantus) 8 unit QHS SC Last administered on 10/13/18at 23:55; Admin Dose 8 UNIT; Start 10/13/18 at 21:00 IV Flush (NS 3 ml) 3 ml PER PROTOCOL IV ; Start 10/13/18 at 14:00 Ondansetron HCl (Zofran Inj) 4 mg Q6H PRN IV NAUSEA/VOMITING; Start 10/13/18 at 14:00 Nitroglycerin (Nitroglycerin (Sl Tab) 0.4 Mg) 1 tab Q5M PRN SL .CHEST PAIN; Start 10/13/18 at 14:00 Acetaminophen (Tylenol Tab) 650 mg Q6H PRN PO .PAIN 1-3 OR TEMP; Start 10/13/18 at 14:00 Docusate Sodium (Colace) 100 mg Q12H PRN PO .CONSTIPATION; Start 10/13/18 at 14:00 Magnesium Hydroxide (Milk Of Mag) 30 ml DAILY PRN PO .CONSTIPATION; Start 10/13/18 at 14:00 Pantoprazole (Protonix Tab) 40 mg DAILY@06 PO Last administered on 10/14/18at 06:30; Admin Dose 40 MG; Start 10/14/18 at 06:00 Heparin Sodium (Porcine) (Heparin (5000 Units/1ml)) 5,000 unit Q12 SC Last administered on 10/14/18at 09:48; Admin Dose 5,000 UNIT; Start 10/13/18 at 21:00 Furosemide (Lasix) 40 mg BID DIURETICS IV Last administered on 10/14/18at 06:31; Admin Dose 40 MG; Start 10/13/18 at 18:00 Miscellaneous Information 1 ea NOTE XX ; Start 10/13/18 at 14:30 Glucose (Glutose) 15 gm Q15M PRN PO DECREASED GLUCOSE; Start 10/13/18 at 14:30 Glucose (Glutose) 22.5 gm Q15M PRN PO DECREASED GLUCOSE; Start 10/13/18 at 14:30 Dextrose (D50w Syringe) 25 ml Q15M PRN IV DECREASED GLUCOSE; Start 10/13/18 at 14:30 Dextrose (D50w Syringe) 50 ml Q15M PRN IV DECREASED GLUCOSE; Start 10/13/18 at 14:30 Glucagon (Glucagen) 1 mg Q15M PRN IM DECREASED GLUCOSE; Start 10/13/18 at 14:30 Glucose (Glutose) 15 gm Q15M PRN BUCCAL DECREASED GLUCOSE; Start 10/13/18 at 14:30 Nicotine (Nicoderm 7 Mg/ 24 Hr) 1 patch DAILY TRANSDERM Last administered on 10/14/18at 09:41; Admin Dose 1 PATCH; Start 10/13/18 at 16:00 Insulin Aspart (Novolog Insulin Pen) NOVOLOG *MILD* ALGORITHM WITH MEALS BEDTIME SC ; Start 10/13/18 at 18:00 VTE Prophylaxis Risk score (from Nsg)>0 risk: 1 SCD applied (from Nsg): No SCD contraindication: other Lines/Catheters IV Catheter Type: Iqbal in Place: No Assessment/Plan Hospital Course Subjective Patient doing well, states legs have improved, shortness of breath has improved Objective Physical exam General: Patient is laying in bed and answers questions appropriately Mentation: Patient is alert and oriented 4, Head: Normocephalic atraumatic Eyes: EOMI, pupils reactive to light Neck: Supple, nontender, midline Respiratory: Coarse to auscultation bilaterally Cardiovascular: regular rate, no obvious murmurs Gastrointestinal: non-tender to palpation, bowel sounds heard. Neurological: Moves all extremities spontaneously Skin: No new skin lesions Assessment/Plan 1. Acute on chronic heart failure - BNP elevated, 4000 on admission - ECHO ordered to assess EF, likely diastolic dysfunction - Diuretics on board - Dr. Gutiérrez, Cardiology consulted for assistance with diuresis and medication adjustments - Daily weights and I/O - No effusions or pulmonary edema on CXR Lower extremity swelling, bilateral -Secondary to above diastolic heart failure -Venous ultrasound pending -Continue diuretics 2. ALEX on CKD - possible secondary to cardio renal vs diabetic nephropathy - Unsure baseline - Dr. Lieberman, Nephrology consulted for further recommendations - Renal US noted - avoid nephrotoxic agents 3. Anemia -Iron levels noted - no need for transfusions at this time 4. Diabetes Mellitus - A1c ordered - ISS and accuchecks - holding Metformin in setting of ALEX 5. HTN - continue home medications 6. Constipation - bowel regime 7. LE edema - secondary to CHF 8. Diet - Carb controlled 9. Disposition -Follow-up with nephrology and cardiology recommendations, continue diuresis. FRANSICO BERRY Oct 14, 2018 14:00
[2018-10-14 16:05] VITALS: BP 129/82; PULSE 99; RESP 18
[2018-10-14 19:49] VITALS: BP 132/69; PULSE 70; RESP 20
[2018-10-14] MEDS: ATORVASTATIN 40 MG TAB PO SCH (21:38)
[2018-10-14] MEDS: INSULIN GLARGINE [LANtus] 3 ML PEN SC SCH (22:33)
[2018-10-15 00:23] VITALS: BP 152/75; PULSE 72; RESP 18
[2018-10-15 04:11] VITALS: BP 145/69; PULSE 72; RESP 18
[2018-10-15] MEDS: FUROSEMIDE 40 MG INJ IV SCH (07:29)
[2018-10-15] MEDS: PANTOPRAZOLE (EC) 40 MG TAB PO SCH (07:29)
[2018-10-15] MEDS: INSULIN ASPART [NOVOLOG] 3 ML PEN SC SCH ×4 (07:55→21:00)
[2018-10-15 08:05] VITALS: BP 137/71; PULSE 70; RESP 18
[2018-10-15] MEDS: FERROUS SULFATE (EC) 325 MG TAB PO SCH (08:05)
[2018-10-15] MEDS: AMLODIPINE 10 MG TAB PO SCH (08:05)
[2018-10-15] MEDS: NICOTINE (7 MG/24 HR) PATCH TRANSDERM SCH (08:06)
[2018-10-15] MEDS: HEPARIN 5,000 UNIT/1 ML VIAL SC SCH ×2 (08:10→23:06)
--- NOTE | 2018-10-15 08:31 | CONS ---
Assessment/Plan Assessment/Plan Hospital Course (Demo Recall) Acute on chronic diastolic heart failure: EF preserved, grade 2 diastolic dysfunction. Improving but remains decompensated on exam HTN CKD: unknown baseline. Worse today but not far from admission Cr -I think he remains decompensated on exam with elevated JVP even with the rise in Cr today so would like to continue IV diuresis for now -continue lasix 40mng IV BID -coreg 25mg BID -amlodipine 10mg -hydralazine 100mg BID Consultation Date/Type/Reason Admit Date/Time Oct 13, 2018 at 13:26 Initial Consult Date 10/14/18 Type of Consult Cardiology Requesting Provider: GLADIS CUNHA MD Date/Time of Note DATE: 10/15/18 TIME: 08:29 24 HR Interval Summary Free Text/Dictation Cr worse today but close to what it was on admission. SOB improved Exam/Review of Systems Vital Signs Vitals Vital Signs Date Temp Pulse Resp B/P (MAP) Pulse Ox O2 O2 Flow FiO2 Time Delivery Rate 10/15/18 98.0 70 18 137/71 98 08:05 (93) 10/13/18 Room Air 20:30 Intake and Output 10/14/18 10/14/18 10/15/18 1515:00 23:00 07:00 IntakeIntake Total 700 ml 1160 ml OutputOutput Total 600 ml 2300 ml BalanceBalance 100 ml -1140 ml Exam Constitutional: alert, oriented Head: normocephalic, atraumatic Neck: jvd (10cm) Respiratory: crackles/rales; No clear to auscultation Cardiovascular: regular rate and rhythm, edema (1+) Gastrointestinal: soft, non-tender; No distended Neurological: nl mental status, nl speech Labs Result Diagram: 10/15/1815 10/15/1815 Results 24hrs Laboratory Tests Test 10/14/18 12:29 10/14/18 17:06 10/14/18 21:37 10/15/18 06:15 Bedside Glucose 114 257 H 150 White Blood Count 5.4 Red Blood Count 2.57 L Hemoglobin 7.3 L Hematocrit 23.3 L Mean Corpuscular Volume 90.7 Mean Corpuscular 28.4 L Hemoglobin Mean Corpuscular 31.3 L Hemoglobin Concent Red Cell Distribution 14.5 Width Platelet Count 180 Mean Platelet Volume 11.5 H Immature Granulocytes % 0.400 Neutrophils % 58.2 Lymphocytes % 22.7 Monocytes % 10.2 Eosinophils % 7.6 H Basophils % 0.9 Nucleated Red Blood 0.0 Cells % Immature Granulocytes # 0.020 Neutrophils # 3.2 Lymphocytes # 1.2 Monocytes # 0.6 Eosinophils # 0.4 Basophils # 0.1 Nucleated Red Blood 0.0 Cells # Sodium Level 143 Potassium Level 5.2 H Chloride Level 111 H Carbon Dioxide Level 26 Anion Gap 6 Blood Urea Nitrogen 44 H Creatinine 2.88 H Est Glomerular Filtrat 24 L Rate mL/min Glucose Level 97 Calcium Level 8.3 L Phosphorus Level 5.1 H Magnesium Level 2.5 Test 10/15/18 08:04 Bedside Glucose 93 Medications Medications Current Medications Amlodipine Besylate (Norvasc) 10 mg DAILY PO Last administered on 10/15/18at 08:05; Admin Dose 10 MG; Start 10/14/18 at 09:00 Atorvastatin Calcium (Lipitor) 40 mg QHS PO Last administered on 10/14/18at 21:38 ; Admin Dose 40 MG; Start 10/13/18 at 21:00 Carvedilol (Coreg) 25 mg BID PO Last administered on 10/15/18at 08:06; Admin Dose 25 MG; Start 10/13/18 at 21:00 Ferrous Sulfate (Ferrous Sulfate (Ec)) 325 mg DAILY PO Last administered on 10/15/18at 08:05; Admin Dose 325 MG; Start 10/14/18 at 09:00 Hydralazine HCl (Apresoline) 100 mg BID PO Last administered on 10/15/18at 08:05; Admin Dose 100 MG; Start 10/13/18 at 21:00 Insulin Glargine (Lantus) 8 unit QHS SC Last administered on 10/14/18at 22:33; Admin Dose 8 UNIT; Start 10/13/18 at 21:00 IV Flush (NS 3 ml) 3 ml PER PROTOCOL IV ; Start 10/13/18 at 14:00 Ondansetron HCl (Zofran Inj) 4 mg Q6H PRN IV NAUSEA/VOMITING; Start 10/13/18 at 14:00 Nitroglycerin (Nitroglycerin (Sl Tab) 0.4 Mg) 1 tab Q5M PRN SL .CHEST PAIN; Start 10/13/18 at 14:00 Acetaminophen (Tylenol Tab) 650 mg Q6H PRN PO .PAIN 1-3 OR TEMP; Start 10/13/18 at 14:00 Docusate Sodium (Colace) 100 mg Q12H PRN PO .CONSTIPATION; Start 10/13/18 at 14:00 Magnesium Hydroxide (Milk Of Mag) 30 ml DAILY PRN PO .CONSTIPATION; Start 10/13/18 at 14:00 Pantoprazole (Protonix Tab) 40 mg DAILY@06 PO Last administered on 10/15/18at 07:29; Admin Dose 40 MG; Start 10/14/18 at 06:00 Heparin Sodium (Porcine) (Heparin (5000 Units/1ml)) 5,000 unit Q12 SC Last administered on 10/15/18 08:10; Admin Dose 5,000 UNIT; Start 10/13/18 at 21:00 Furosemide (Lasix) 40 mg BID DIURETICS IV Last administered on 10/15/18at 07:29; Admin Dose 40 MG; Start 10/13/18 at 18:00 Miscellaneous Information 1 ea NOTE XX ; Start 10/13/18 at 14:30 Glucose (Glutose) 15 gm Q15M PRN PO DECREASED GLUCOSE; Start 10/13/18 at 14:30 Glucose (Glutose) 22.5 gm Q15M PRN PO DECREASED GLUCOSE; Start 10/13/18 at 14:30 Dextrose (D50w Syringe) 25 ml Q15M PRN IV DECREASED GLUCOSE; Start 10/13/18 at 14:30 Dextrose (D50w Syringe) 50 ml Q15M PRN IV DECREASED GLUCOSE; Start 10/13/18 at 14:30 Glucagon (Glucagen) 1 mg Q15M PRN IM DECREASED GLUCOSE; Start 10/13/18 at 14:30 Glucose (Glutose) 15 gm Q15M PRN BUCCAL DECREASED GLUCOSE; Start 10/13/18 at 14:30 Nicotine (Nicoderm 7 Mg/ 24 Hr) 1 patch DAILY TRANSDERM Last administered on 10/15/18 08:06; Admin Dose 1 PATCH; Start 10/13/18 at 16:00 Insulin Aspart (Novolog Insulin Pen) NOVOLOG *MILD* ALGORITHM WITH MEALS BEDTIME SC Last administered on 10/14/18 17:21; Admin Dose 2 UNIT; Start 10/13/18 at 18:00 BRADEN GARCIA Oct 15, 2018 08:30
--- NOTE | 2018-10-15 10:17 | CONS ---
Assessment/Plan Assessment/Plan Assessment/Plan (Daily) 1. ALEX on CKD III due to hemodynamics from CHF 2.acute CHF, acute on chronic systolic + diastolic 3. 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 H/o DM II 5. H/o HL 6. h/O HTN 7. Anemia of CKD with Iron saturation 25% Plan: ECHO showed 55-60 %. Stage II diastolic dysfunction- decrease lasix to 20mg IV BID iron saturation 25%- will give ferrlecit 125 mg IV daily x 5 doses Renal US showed No hydronephrosis or nephrolithiasis., Normal size kidneys, normal echogenicity will follow up Consultation Date/Type/Reason Admit Date/Time Oct 13, 2018 at 13:26 Initial Consult Date 10/14/18 Type of Consult NEPHROLOGY Requesting Provider: GLADIS CUNHA MD Date/Time of Note DATE: 10/15/18 TIME: 10:17 Exam/Review of Systems Exam Vitals Vital Signs Date Temp Pulse Resp B/P (MAP) Pulse Ox O2 O2 Flow FiO2 Time Delivery Rate 10/15/18 98.0 70 18 137/71 98 08:05 (93) 10/13/18 Room Air 20:30 Intake and Output 10/14/18 10/14/18 10/15/18 1414:59 22:59 06:59 IntakeIntake Total 700 ml 1160 ml OutputOutput Total 600 ml 2300 ml BalanceBalance 100 ml -1140 ml Exam Constitutional: alert, awake, no acute distress ENMT: nl external ears & nose Respiratory: congested cough, crackles/rales, diminished breath sounds Cardiovascular: regular rate and rhythm Gastrointestinal: soft, non-tender Musculoskeletal: swelling (2-3+ pitting edema ) Skin: nl turgor Lymph: nl lymph node Results Result Diagram: 10/15/18 0615 10/15/18 0615 Results 24hrs Laboratory Tests Test 10/14/18 12:29 10/14/18 17:06 10/14/18 21:37 10/15/18 06:15 Bedside Glucose 114 257 H 150 White Blood Count 5.4 Red Blood Count 2.57 L Hemoglobin 7.3 L Hematocrit 23.3 L Mean Corpuscular Volume 90.7 Mean Corpuscular 28.4 L Hemoglobin Mean Corpuscular 31.3 L Hemoglobin Concent Red Cell Distribution 14.5 Width Platelet Count 180 Mean Platelet Volume 11.5 H Immature Granulocytes % 0.400 Neutrophils % 58.2 Lymphocytes % 22.7 Monocytes % 10.2 Eosinophils % 7.6 H Basophils % 0.9 Nucleated Red Blood 0.0 Cells % Immature Granulocytes # 0.020 Neutrophils # 3.2 Lymphocytes # 1.2 Monocytes # 0.6 Eosinophils # 0.4 Basophils # 0.1 Nucleated Red Blood 0.0 Cells # Sodium Level 143 Potassium Level 5.2 H Chloride Level 111 H Carbon Dioxide Level 26 Anion Gap 6 Blood Urea Nitrogen 44 H Creatinine 2.88 H Est Glomerular Filtrat 24 L Rate mL/min Glucose Level 97 Calcium Level 8.3 L Phosphorus Level 5.1 H Magnesium Level 2.5 Test 10/15/18 08:04 Bedside Glucose 93 Medications Medication Current Medications Amlodipine Besylate (Norvasc) 10 mg DAILY PO Last administered on 10/15/18 08:05; Admin Dose 10 MG; Start 10/14/18 at 09:00 Atorvastatin Calcium (Lipitor) 40 mg QHS PO Last administered on 10/14/18at 21:38; Admin Dose 40 MG; Start 10/13/18 at 21:00 Carvedilol (Coreg) 25 mg BID PO Last administered on 10/15/18at 08:06; Admin Dose 25 MG; Start 10/13/18 at 21:00 Ferrous Sulfate (Ferrous Sulfate (Ec)) 325 mg DAILY PO Last administered on 10/15/18at 08:05; Admin Dose 325 MG; Start 10/14/18 at 09:00 Hydralazine HCl (Apresoline) 100 mg BID PO Last administered on 10/15/18at 08:05; Admin Dose 100 MG; Start 10/13/18 at 21:00 Insulin Glargine (Lantus) 8 unit QHS SC Last administered on 10/14/18at 22:33; Admin Dose 8 UNIT; Start 10/13/18 at 21:00 IV Flush (NS 3 ml) 3 ml PER PROTOCOL IV ; Start 10/13/18 at 14:00 Ondansetron HCl (Zofran Inj) 4 mg Q6H PRN IV NAUSEA/VOMITING; Start 10/13/18 at 14:00 Nitroglycerin (Nitroglycerin (Sl Tab) 0.4 Mg) 1 tab Q5M PRN SL .CHEST PAIN; Start 10/13/18 at 14:00 Acetaminophen (Tylenol Tab) 650 mg Q6H PRN PO .PAIN 1-3 OR TEMP; Start 10/13/18 at 14:00 Docusate Sodium (Colace) 100 mg Q12H PRN PO .CONSTIPATION; Start 10/13/18 at 14:00 Magnesium Hydroxide (Milk Of Mag) 30 ml DAILY PRN PO .CONSTIPATION; Start 10/13/18 at 14:00 Pantoprazole (Protonix Tab) 40 mg DAILY@06 PO Last administered on 10/15/18at 07:29; Admin Dose 40 MG; Start 10/14/18 at 06:00 Heparin Sodium (Porcine) (Heparin (5000 Units/1ml)) 5,000 unit Q12 SC Last administered on 10/15/18at 08:10; Admin Dose 5,000 UNIT; Start 10/13/18 at 21:00 Furosemide (Lasix) 40 mg BID DIURETICS IV Last administered on 10/15/18at 07:29; Admin Dose 40 MG; Start 10/13/18 at 18:00 Miscellaneous Information 1 ea NOTE XX ; Start 10/13/18 at 14:30 Glucose (Glutose) 15 gm Q15M PRN PO DECREASED GLUCOSE; Start 10/13/18 at 14:30 Glucose (Glutose) 22.5 gm Q15M PRN PO DECREASED GLUCOSE; Start 10/13/18 at 14:30 Dextrose (D50w Syringe) 25 ml Q15M PRN IV DECREASED GLUCOSE; Start 10/13/18 at 14:30 Dextrose (D50w Syringe) 50 ml Q15M PRN IV DECREASED GLUCOSE; Start 10/13/18 at 14:30 Glucagon (Glucagen) 1 mg Q15M PRN IM DECREASED GLUCOSE; Start 10/13/18 at 14:30 Glucose (Glutose) 15 gm Q15M PRN BUCCAL DECREASED GLUCOSE; Start 10/13/18 at 14:30 Nicotine (Nicoderm 7 Mg/ 24 Hr) 1 patch DAILY TRANSDERM Last administered on 10/15/18at 08:06; Admin Dose 1 PATCH; Start 10/13/18 at 16:00 Insulin Aspart (Novolog Insulin Pen) NOVOLOG *MILD* ALGORITHM WITH MEALS BEDTIME SC Last administered on 10/14/18at 17:21; Admin Dose 2 UNIT; Start 10/13/18 at 18:00 ANAMARIA SEAMAN MD Oct 15, 2018 10:17
[2018-10-15 12:02] VITALS: BP 131/66; PULSE 70; RESP 18
--- NOTE | 2018-10-15 15:51 | PN ---
Date/Time of Note Date/Time of Note DATE: 10/15/18 TIME: 15:50 Objective Vitals Vital Signs Date Temp Pulse Resp B/P (MAP) Pulse Ox O2 O2 Flow FiO2 Time Delivery Rate 10/15/18 98.0 70 18 131/66 99 12:02 (87) 10/13/18 Room Air 20:30 Intake and Output 10/14/18 10/14/18 10/15/18 1515:00 23:00 07:00 IntakeIntake Total 700 ml 1160 ml OutputOutput Total 600 ml 2300 ml BalanceBalance 100 ml -1140 ml Results Result Diagram: 10/15/1815 10/15/1815 Medications Medications Current Medications Amlodipine Besylate (Norvasc) 10 mg DAILY PO Last administered on 10/15/18at 08:05; Admin Dose 10 MG; Start 10/14/18 at 09:00 Atorvastatin Calcium (Lipitor) 40 mg QHS PO Last administered on 10/14/18at 21:38; Admin Dose 40 MG; Start 10/13/18 at 21:00 Carvedilol (Coreg) 25 mg BID PO Last administered on 10/15/18at 08:06; Admin Dose 25 MG; Start 10/13/18 at 21:00 Ferrous Sulfate (Ferrous Sulfate (Ec)) 325 mg DAILY PO Last administered on 10/15/18at 08:05; Admin Dose 325 MG; Start 10/14/18 at 09:00 Hydralazine HCl (Apresoline) 100 mg BID PO Last administered on 10/15/18at 08:05; Admin Dose 100 MG; Start 10/13/18 at 21:00 Insulin Glargine (Lantus) 8 unit QHS SC Last administered on 10/14/18at 22:33; Admin Dose 8 UNIT; Start 10/13/18 at 21:00 IV Flush (NS 3 ml) 3 ml PER PROTOCOL IV ; Start 10/13/18 at 14:00 Ondansetron HCl (Zofran Inj) 4 mg Q6H PRN IV NAUSEA/VOMITING; Start 10/13/18 at 14:00 Nitroglycerin (Nitroglycerin (Sl Tab) 0.4 Mg) 1 tab Q5M PRN SL .CHEST PAIN; Start 10/13/18 at 14:00 Acetaminophen (Tylenol Tab) 650 mg Q6H PRN PO .PAIN 1-3 OR TEMP; Start 10/13/18 at 14:00 Docusate Sodium (Colace) 100 mg Q12H PRN PO .CONSTIPATION; Start 10/13/18 at 14:00 Magnesium Hydroxide (Milk Of Mag) 30 ml DAILY PRN PO .CONSTIPATION; Start 10/13/18 at 14:00 Pantoprazole (Protonix Tab) 40 mg DAILY@06 PO Last administered on 10/15/18at 07:29; Admin Dose 40 MG; Start 10/14/18 at 06:00 Heparin Sodium (Porcine) (Heparin (5000 Units/1ml)) 5,000 unit Q12 SC Last administered on 10/15/18at 08:10; Admin Dose 5,000 UNIT; Start 10/13/18 at 21:00 Miscellaneous Information 1 ea NOTE XX ; Start 10/13/18 at 14:30 Glucose (Glutose) 15 gm Q15M PRN PO DECREASED GLUCOSE; Start 10/13/18 at 14:30 Glucose (Glutose) 22.5 gm Q15M PRN PO DECREASED GLUCOSE; Start 10/13/18 at 14:30 Dextrose (D50w Syringe) 25 ml Q15M PRN IV DECREASED GLUCOSE; Start 10/13/18 at 14:30 Dextrose (D50w Syringe) 50 ml Q15M PRN IV DECREASED GLUCOSE; Start 10/13/18 at 14:30 Glucagon (Glucagen) 1 mg Q15M PRN IM DECREASED GLUCOSE; Start 10/13/18 at 14:30 Glucose (Glutose) 15 gm Q15M PRN BUCCAL DECREASED GLUCOSE; Start 10/13/18 at 14:30 Nicotine (Nicoderm 7 Mg/ 24 Hr) 1 patch DAILY TRANSDERM Last administered on 10/15/18at 08:06; Admin Dose 1 PATCH; Start 10/13/18 at 16:00 Insulin Aspart (Novolog Insulin Pen) NOVOLOG *MILD* ALGORITHM WITH MEALS BEDTIME SC Last administered on 10/14/18at 17:21; Admin Dose 2 UNIT; Start 10/13/18 at 18:00 Furosemide (Lasix) 20 mg BID DIURETICS IV ; Start 10/15/18 at 18:00 VTE Prophylaxis Risk score (from Ns)>0 risk: 1 SCD applied (from Ns): No SCD contraindication: other Lines/Catheters IV Catheter Type: Iqbal in Place: No Assessment/Plan Hospital Course Subjective Patient doing well, states legs have improved, shortness of breath has improved Objective Physical exam General: Patient is laying in bed and answers questions appropriately Mentation: Patient is alert and oriented 4, Head: Normocephalic atraumatic Eyes: EOMI, pupils reactive to light Neck: Supple, nontender, midline Respiratory: Coarse to auscultation bilaterally Cardiovascular: regular rate, no obvious murmurs Gastrointestinal: non-tender to palpation, bowel sounds heard. Neurological: Moves all extremities spontaneously Skin: No new skin lesions Assessment/Plan 1. Acute on chronic heart failure - BNP elevated, 4000 on admission - ECHO ordered to assess EF, likely diastolic dysfunction - Diuretics on board - Dr. Gutiérrez, Cardiology consulted for assistance with diuresis and medication adjustments - Daily weights and I/O - No effusions or pulmonary edema on CXR Lower extremity swelling, bilateral -Secondary to above diastolic heart failure -Venous ultrasound pending -Continue diuretics 2. ALEX on CKD - possible secondary to cardio renal vs diabetic nephropathy - Unsure baseline - Dr. Lieberman, Nephrology consulted for further recommendations - Renal US noted - avoid nephrotoxic agents 3. Anemia -Iron levels noted - no need for transfusions at this time 4. Diabetes Mellitus - A1c ordered - ISS and accuchecks - holding Metformin in setting of ALEX 5. HTN - continue home medications 6. Constipation - bowel regime 7. LE edema - secondary to CHF 8. Diet - Carb controlled 9. Disposition -Follow-up with nephrology and cardiology recommendations, continue diuresis. FRANSICO BERRY Oct 15, 2018 15:51
[2018-10-15 16:26] VITALS: BP 128/63; PULSE 70; RESP 18
[2018-10-15] MEDS: FUROSEMIDE 20 MG INJ IV SCH (17:36)
[2018-10-15 20:32] VITALS: BP 136/74; PULSE 68; RESP 20
[2018-10-15] MEDS: ATORVASTATIN 40 MG TAB PO SCH (22:50)
[2018-10-15] MEDS: INSULIN GLARGINE [LANtus] 3 ML PEN SC SCH (23:06)
[2018-10-16 00:07] VITALS: BP 155/79; PULSE 71; RESP 18
[2018-10-16 04:15] VITALS: BP 118/58; PULSE 72; RESP 18
[2018-10-16] MEDS: PANTOPRAZOLE (EC) 40 MG TAB PO SCH (06:22)
[2018-10-16] MEDS: FUROSEMIDE 20 MG INJ IV SCH (06:24)
[2018-10-16] MEDS: INSULIN ASPART [NOVOLOG] 3 ML PEN SC SCH ×4 (07:55→21:00)
[2018-10-16 07:58] VITALS: BP 151/72; PULSE 73; RESP 18
[2018-10-16] MEDS: NICOTINE (7 MG/24 HR) PATCH TRANSDERM SCH (08:25)
[2018-10-16] MEDS: FERROUS SULFATE (EC) 325 MG TAB PO SCH (08:25)
[2018-10-16] MEDS: CALCIUM ACETATE 667 MG CAP PO SCH ×3 (08:25→17:32)
[2018-10-16] MEDS: AMLODIPINE 10 MG TAB PO SCH (08:26)
[2018-10-16] MEDS: HEPARIN 5,000 UNIT/1 ML VIAL SC SCH ×2 (08:31→22:38)
--- NOTE | 2018-10-16 10:56 | CONS ---
Assessment/Plan Assessment/Plan Hospital Course (Demo Recall) Acute on chronic diastolic heart failure: EF preserved, grade 2 diastolic dysfunction. Improving but remains decompensated on exam HTN CKD: unknown baseline. Slightly worse with diuresis -continue lasix 20mng IV BID -coreg 25mg BID -amlodipine 10mg -hydralazine 100mg BID Consultation Date/Type/Reason Admit Date/Time Oct 13, 2018 at 13:26 Initial Consult Date 10/14/18 Type of Consult Cardiology Requesting Provider: GLADIS CUNHA MD Date/Time of Note DATE: 10/16/18 TIME: 10:55 24 HR Interval Summary Free Text/Dictation No events. Cr slightly higher. Still with dyspnea Exam/Review of Systems Vital Signs Vitals Vital Signs Date Temp Pulse Resp B/P (MAP) Pulse Ox O2 O2 Flow FiO2 Time Delivery Rate 10/16/18 98.8 73 18 151/72 96 07:58 (98) 10/13/18 Room Air 20:30 Intake and Output 10/15/18 10/15/18 10/16/18 1515:00 23:00 07:00 IntakeIntake Total 360 ml 440 ml OutputOutput Total 1250 ml 700 ml 1250 ml BalanceBalance -890 ml -260 ml -1250 ml Exam Constitutional: alert, oriented Psych: no complaints, nl mood/affect Neck: jvd (10cm) Respiratory: crackles/rales; No clear to auscultation Cardiovascular: regular rate and rhythm, edema (1+) Gastrointestinal: soft, non-tender; No distended Neurological: nl mental status, nl speech Labs Result Diagram: 10/16/18 0608 10/16/18 0609 Results 24hrs Laboratory Tests Test 10/15/18 12:14 10/15/18 17:36 10/15/18 22:49 10/16/18 06:08 Bedside Glucose 110 171 148 White Blood Count 6.0 Red Blood Count 2.52 L Hemoglobin 7.5 L Hematocrit 22.7 L Mean Corpuscular Volume 90.1 Mean Corpuscular 29.8 Hemoglobin Mean Corpuscular 33.0 Hemoglobin Concent Red Cell Distribution 14.2 Width Platelet Count 177 Mean Platelet Volume 11.7 H Immature Granulocytes % 0.300 Neutrophils % 60.1 Lymphocytes % 23.6 Monocytes % 9.8 Eosinophils % 5.5 Basophils % 0.7 Nucleated Red Blood 0.0 Cells % Immature Granulocytes # 0.020 Neutrophils # 3.6 Lymphocytes # 1.4 Monocytes # 0.6 Eosinophils # 0.3 Basophils # 0.0 Nucleated Red Blood 0.0 Cells # Test 10/16/18 06:09 10/16/18 08:24 Sodium Level 142 Potassium Level 5.0 Chloride Level 112 H Carbon Dioxide Level 23 Anion Gap 7 Blood Urea Nitrogen 47 H Creatinine 2.97 H Est Glomerular Filtrat 23 L Rate mL/min Glucose Level 89 Calcium Level 7.8 L Phosphorus Level 4.7 Magnesium Level 2.4 Bedside Glucose 99 Medications Medications Current Medications Amlodipine Besylate (Norvasc) 10 mg DAILY PO Last administered on 10/16/18 08:26; Admin Dose 10 MG; Start 10/14/18 at 09:00 Atorvastatin Calcium (Lipitor) 40 mg QHS PO Last administered on 10/15/18at 22:50; Admin Dose 40 MG; Start 10/13/18 at 21:00 Carvedilol (Coreg) 25 mg BID PO Last administered on 10/16/18at 08:26; Admin Dose 25 MG; Start 10/13/18 at 21:00 Ferrous Sulfate (Ferrous Sulfate (Ec)) 325 mg DAILY PO Last administered on 10/16/18at 08:25; Admin Dose 325 MG; Start 10/14/18 at 09:00 Hydralazine HCl (Apresoline) 100 mg BID PO Last administered on 10/16/18at 08:26; Admin Dose 100 MG; Start 10/13/18 at 21:00 Insulin Glargine (Lantus) 8 unit QHS SC Last administered on 10/15/18at 23:06; Admin Dose 8 UNIT; Start 10/13/18 at 21:00 IV Flush (NS 3 ml) 3 ml PER PROTOCOL IV ; Start 10/13/18 at 14:00 Ondansetron HCl (Zofran Inj) 4 mg Q6H PRN IV NAUSEA/VOMITING; Start 10/13/18 at 14:00 Nitroglycerin (Nitroglycerin (Sl Tab) 0.4 Mg) 1 tab Q5M PRN SL .CHEST PAIN; Start 10/13/18 at 14:00 Acetaminophen (Tylenol Tab) 650 mg Q6H PRN PO .PAIN 1-3 OR TEMP; Start 10/13/18 at 14:00 Docusate Sodium (Colace) 100 mg Q12H PRN PO .CONSTIPATION; Start 10/13/18 at 14:00 Magnesium Hydroxide (Milk Of Mag) 30 ml DAILY PRN PO .CONSTIPATION; Start 10/13 at 14:00 Pantoprazole (Protonix Tab) 40 mg DAILY@06 PO Last administered on 10/16/18at 06:22; Admin Dose 40 MG; Start 10/14/18 at 06:00 Heparin Sodium (Porcine) (Heparin (5000 Units/1ml)) 5,000 unit Q12 SC Last administered on 10/16/18at 08:31; Admin Dose 5,000 UNIT; Start 10/13/18 at 21:00 Miscellaneous Information 1 ea NOTE XX ; Start 10/13/18 at 14:30 Glucose (Glutose) 15 gm Q15M PRN PO DECREASED GLUCOSE; Start 10/13/18 at 14:30 Glucose (Glutose) 22.5 gm Q15M PRN PO DECREASED GLUCOSE; Start 10/13/18 at 14:30 Dextrose (D50w Syringe) 25 ml Q15M PRN IV DECREASED GLUCOSE; Start 10/13/18 at 14:30 Dextrose (D50w Syringe) 50 ml Q15M PRN IV DECREASED GLUCOSE; Start 10/13/18 at 14:30 Glucagon (Glucagen) 1 mg Q15M PRN IM DECREASED GLUCOSE; Start 10/13/18 at 14:30 Glucose (Glutose) 15 gm Q15M PRN BUCCAL DECREASED GLUCOSE; Start 10/13/18 at 14:30 Nicotine (Nicoderm 7 Mg/ 24 Hr) 1 patch DAILY TRANSDERM Last administered on 10/16/18at 08:25; Admin Dose 1 PATCH; Start 10/13/18 at 16:00 Insulin Aspart (Novolog Insulin Pen) NOVOLOG *MILD* ALGORITHM WITH MEALS BEDTIME SC Last administered on 10/15/18at 17:41; Admin Dose 1 UNIT; Start 10/13/18 at 18:00 Furosemide (Lasix) 20 mg BID DIURETICS IV Last administered on 10/16/18at 06:24; Admin Dose 20 MG; Start 10/15/18 at 18:00 Calcium Acetate (Phoslo) 667 mg WITH MEALS PO Last administered on 10/16/18at 08:25; Admin Dose 667 MG; Start 10/16/18 at 07:55 Ferric Sodium Gluconate Complex 125 mg/Sodium Chloride 110 ml @ 110 mls/hr DAILY@1300 IVPB ; Start 10/16/18 at 13:00; Stop 10/20/18 at 13:59 BRADEN GARCIA Oct 16, 2018 10:56
--- NOTE | 2018-10-16 11:27 | CONS ---
Assessment/Plan Assessment/Plan Assessment/Plan (Daily) 1. ALEX on CKD III due to hemodynamics from CHF 2.acute CHF, acute on chronic systolic + diastolic 3. 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 H/o DM II 5. H/o HL 6. h/O HTN 7. Anemia of CKD with Iron saturation 25% Plan: ECHO showed 55-60 %. Stage II diastolic dysfunction- d/c Lasix now, Start pt on IV bumex 2mg BID with IV albumin iron saturation 25%- will give ferrlecit 125 mg IV daily x 5 doses Renal US showed No hydronephrosis or nephrolithiasis., Normal size kidneys, normal echogenicity will follow up Consultation Date/Type/Reason Admit Date/Time Oct 13, 2018 at 13:26 Initial Consult Date 10/14/18 Type of Consult NEPHROLOGY Requesting Provider: GLADIS CUNHA MD Date/Time of Note DATE: 10/16/18 TIME: 11:27 Exam/Review of Systems Exam Vitals Vital Signs Date Temp Pulse Resp B/P (MAP) Pulse Ox O2 O2 Flow FiO2 Time Delivery Rate 10/16/18 98.8 73 18 151/72 96 07:58 (98) 10/13/18 Room Air 20:30 Intake and Output 10/15/18 10/15/18 10/16/18 1515:00 23:00 07:00 IntakeIntake Total 360 ml 440 ml OutputOutput Total 1250 ml 700 ml 1250 ml BalanceBalance -890 ml -260 ml -1250 ml Results Result Diagram: 10/16/18 0608 10/16/18 0609 Results 24hrs Laboratory Tests Test 10/15/18 12:14 10/15/18 17:36 10/15/18 22:49 10/16/18 06:08 Bedside Glucose 110 171 148 White Blood Count 6.0 Red Blood Count 2.52 L Hemoglobin 7.5 L Hematocrit 22.7 L Mean Corpuscular Volume 90.1 Mean Corpuscular 29.8 Hemoglobin Mean Corpuscular 33.0 Hemoglobin Concent Red Cell Distribution 14.2 Width Platelet Count 177 Mean Platelet Volume 11.7 H Immature Granulocytes % 0.300 Neutrophils % 60.1 Lymphocytes % 23.6 Monocytes % 9.8 Eosinophils % 5.5 Basophils % 0.7 Nucleated Red Blood 0.0 Cells % Immature Granulocytes # 0.020 Neutrophils # 3.6 Lymphocytes # 1.4 Monocytes # 0.6 Eosinophils # 0.3 Basophils # 0.0 Nucleated Red Blood 0.0 Cells # Test 10/16/18 06:09 10/16/18 08:24 Sodium Level 142 Potassium Level 5.0 Chloride Level 112 H Carbon Dioxide Level 23 Anion Gap 7 Blood Urea Nitrogen 47 H Creatinine 2.97 H Est Glomerular Filtrat 23 L Rate mL/min Glucose Level 89 Calcium Level 7.8 L Phosphorus Level 4.7 Magnesium Level 2.4 Bedside Glucose 99 Medications Medication Current Medications Amlodipine Besylate (Norvasc) 10 mg DAILY PO Last administered on 10/16/18 08:26; Admin Dose 10 MG; Start 10/14/18 at 09:00 Atorvastatin Calcium (Lipitor) 40 mg QHS PO Last administered on 10/15/18 22:50; Admin Dose 40 MG; Start 10/13/18 at 21:00 Carvedilol (Coreg) 25 mg BID PO Last administered on 10/16/18 08:26; Admin Dose 25 MG; Start 10/13/18 at 21:00 Ferrous Sulfate (Ferrous Sulfate (Ec)) 325 mg DAILY PO Last administered on 10/16/18 08:25; Admin Dose 325 MG; Start 10/14/18 at 09:00 Hydralazine HCl (Apresoline) 100 mg BID PO Last administered on 10/16/18 08:26; Admin Dose 100 MG; Start 10/13/18 at 21:00 Insulin Glargine (Lantus) 8 unit QHS SC Last administered on 10/15/18 23:06; Admin Dose 8 UNIT; Start 10/13/18 at 21:00 IV Flush (NS 3 ml) 3 ml PER PROTOCOL IV ; Start 10/13/18 at 14:00 Ondansetron HCl (Zofran Inj) 4 mg Q6H PRN IV NAUSEA/VOMITING; Start 10/13/18 at 14:00 Nitroglycerin (Nitroglycerin (Sl Tab) 0.4 Mg) 1 tab Q5M PRN SL .CHEST PAIN; Start 10/13/18 at 14:00 Acetaminophen (Tylenol Tab) 650 mg Q6H PRN PO .PAIN 1-3 OR TEMP; Start 10/13/18 at 14:00 Docusate Sodium (Colace) 100 mg Q12H PRN PO .CONSTIPATION; Start 10/13/18 at 14:00 Magnesium Hydroxide (Milk Of Mag) 30 ml DAILY PRN PO .CONSTIPATION; Start 10/13/18 at 14:00 Pantoprazole (Protonix Tab) 40 mg DAILY@06 PO Last administered on 10/16/18at 06:22; Admin Dose 40 MG; Start 10/14/18 at 06:00 Heparin Sodium (Porcine) (Heparin (5000 Units/1ml)) 5,000 unit Q12 SC Last administered on 10/16/18at 08:31; Admin Dose 5,000 UNIT; Start 10/13/18 at 21:00 Miscellaneous Information 1 ea NOTE XX ; Start 10/13/18 at 14:30 Glucose (Glutose) 15 gm Q15M PRN PO DECREASED GLUCOSE; Start 10/13/18 at 14:30 Glucose (Glutose) 22.5 gm Q15M PRN PO DECREASED GLUCOSE; Start 10/13/18 at 14:30 Dextrose (D50w Syringe) 25 ml Q15M PRN IV DECREASED GLUCOSE; Start 10/13/18 at 14:30 Dextrose (D50w Syringe) 50 ml Q15M PRN IV DECREASED GLUCOSE; Start 10/13/18 at 14:30 Glucagon (Glucagen) 1 mg Q15M PRN IM DECREASED GLUCOSE; Start 10/13/18 at 14:30 Glucose (Glutose) 15 gm Q15M PRN BUCCAL DECREASED GLUCOSE; Start 10/13/18 at 14:30 Nicotine (Nicoderm 7 Mg/ 24 Hr) 1 patch DAILY TRANSDERM Last administered on 10/16/18at 08:25; Admin Dose 1 PATCH; Start 10/13/18 at 16:00 Insulin Aspart (Novolog Insulin Pen) NOVOLOG *MILD* ALGORITHM WITH MEALS B EDTIME SC Last administered on 10/15/18at 17:41; Admin Dose 1 UNIT; Start 10/13/18 at 18:00 Furosemide (Lasix) 20 mg BID DIURETICS IV Last administered on 10/16/18at 06:24; Admin Dose 20 MG; Start 10/15/18 at 18:00 Calcium Acetate (Phoslo) 667 mg WITH MEALS PO Last administered on 10/16/18at 08:25; Admin Dose 667 MG; Start 10/16/18 at 07:55 Ferric Sodium Gluconate Complex 125 mg/Sodium Chloride 110 ml @ 110 mls/hr DAILY@1300 IVPB ; Start 10/16/18 at 13:00; Stop 10/20/18 at 13:59 ANAMARIA SEAMAN MD Oct 16, 2018 11:27
[2018-10-16 12:00] VITALS: BP 130/69; PULSE 72; RESP 18
[2018-10-16] MEDS ORDERED: BUMETANIDE 1 MG INJ IV SCH (12:00)
[2018-10-16] MEDS ORDERED: BUMETANIDE 2 MG in DEXTROSE 5% 17 ML IV SCH (13:00)
[2018-10-16] MEDS: ALBUMIN HUMAN 25% 100 ML IV SCH ×2 (13:39→22:24)
[2018-10-16] MEDS: BUMETANIDE 2 MG in DEXTROSE 5% 17 ML IV SCH ×2 (15:25→17:30)
[2018-10-16] MEDS: SOD FERRIC GLUC COMPLX 125 MG in SOD CHLORIDE 0.9% 100 ML IVPB SCH (15:26)
[2018-10-16 16:00] VITALS: BP 124/62; PULSE 61; RESP 18
[2018-10-16 20:21] VITALS: BP 152/76; PULSE 73; RESP 18
[2018-10-16] MEDS: ATORVASTATIN 40 MG TAB PO SCH (22:25)
[2018-10-16] MEDS: INSULIN GLARGINE [LANtus] 3 ML PEN SC SCH (22:38)
[2018-10-17] VITALS (7 sets, daily range): BP systolic 139–153; BP diastolic 65–78; PULSE 68–88; RESP 18–20
[2018-10-17] MEDS: BUMETANIDE 2 MG in DEXTROSE 5% 17 ML IV SCH (06:06)
[2018-10-17] MEDS: PANTOPRAZOLE (EC) 40 MG TAB PO SCH (06:06)
[2018-10-17] MEDS: INSULIN ASPART [NOVOLOG] 3 ML PEN SC SCH ×4 (07:55→21:00)
[2018-10-17] MEDS: CALCIUM ACETATE 667 MG CAP PO SCH ×3 (08:12→17:29)
[2018-10-17] MEDS: FERROUS SULFATE (EC) 325 MG TAB PO SCH (08:12)
[2018-10-17] MEDS: AMLODIPINE 10 MG TAB PO SCH (08:13)
[2018-10-17] MEDS: NICOTINE (7 MG/24 HR) PATCH TRANSDERM SCH (08:14)
[2018-10-17] MEDS: HEPARIN 5,000 UNIT/1 ML VIAL SC SCH ×2 (08:26→21:33)
--- NOTE | 2018-10-17 10:04 | CONS ---
Assessment/Plan Assessment/Plan Hospital Course (Demo Recall) Acute on chronic diastolic heart failure: EF preserved, grade 2 diastolic dysfunction. Improving but remains decompensated on exam HTN CKD: unknown baseline. Slightly worse with diuresis -add one dose of metolazone -continue bumex 2mg IV BID -albumin per nephro -coreg 25mg BID -amlodipine 10mg -hydralazine 100mg BID Consultation Date/Type/Reason Admit Date/Time Oct 13, 2018 at 13:26 Initial Consult Date 10/14/18 Type of Consult Cardiology Requesting Provider: GLADIS CUNHA MD Date/Time of Note DATE: 10/17/18 TIME: 10:03 24 HR Interval Summary Free Text/Dictation No events. Remains SOB but improving Exam/Review of Systems Vital Signs Vitals Vital Signs Date Temp Pulse Resp B/P (MAP) Pulse Ox O2 O2 Flow FiO2 Time Delivery Rate 10/17/18 97.8 68 20 139/67 97 Room Air 07:07 (91) Intake and Output 10/16/18 10/16/18 10/17/18 1515:00 23:00 07:00 IntakeIntake Total 700 ml 795 ml 350 ml OutputOutput Total 800 ml 1050 ml 900 ml BalanceBalance -100 ml -255 ml -550 ml Exam Constitutional: alert, oriented Head: normocephalic, atraumatic Neck: jvd (10cm) Respiratory: crackles/rales; No clear to auscultation Cardiovascular: regular rate and rhythm, edema (1+); No systolic murmur Neurological: nl mental status, nl speech Labs Result Diagram: 10/17/18 0632 10/17/18 0619 Results 24hrs Laboratory Tests Test 10/16/18 11:57 10/16/18 17:31 10/16/18 22:19 10/17/18 06:19 Bedside Glucose 117 146 173 Sodium Level 143 Potassium Level 4.3 Chloride Level 107 Carbon Dioxide Level 27 Anion Gap 9 Blood Urea Nitrogen 49 H Creatinine 2.98 H Est Glomerular Filtrat 23 L Rate mL/min Glucose Level 72 Calcium Level 8.6 Total Bilirubin 0.5 Direct Bilirubin 0.00 Indirect Bilirubin 0.5 Aspartate Amino 16 Transf (AST/SGOT) Alanine 18 Aminotransferase (ALT/SG PT) Alkaline Phosphatase 85 B-Type Natriuretic 4310 H Peptide Total Protein 6.6 Albumin 3.5 Globulin 3.10 Albumin/Globulin Ratio 1.12 Test 10/17/18 06:32 10/17/18 07:58 White Blood Count 5.7 Red Blood Count 2.70 L Hemoglobin 7.8 L Hematocrit 24.3 L Mean Corpuscular Volume 90.0 Mean Corpuscular 28.9 L Hemoglobin Mean Corpuscular 32.1 Hemoglobin Concent Red Cell Distribution 14.2 Width Platelet Count 174 Mean Platelet Volume 11.8 H Immature Granulocytes % 0.200 Neutrophils % 64.1 Lymphocytes % 20.2 Monocytes % 8.9 Eosinophils % 5.7 Basophils % 0.9 Nucleated Red Blood 0.0 Cells % Immature Granulocytes # 0.010 Neutrophils # 3.7 Lymphocytes # 1.2 Monocytes # 0.5 Eosinophils # 0.3 Basophils # 0.1 Nucleated Red Blood 0.0 Cells # Bedside Glucose 86 Medications Medications Current Medications Amlodipine Besylate (Norvasc) 10 mg DAILY PO Last administered on 10/17/18 08:13; Admin Dose 10 MG; Start 10/14/18 at 09:00 Atorvastatin Calcium (Lipitor) 40 mg QHS PO Last administered on 10/16/18 22:25; Admin Dose 40 MG; Start 10/13/18 at 21:00 Carvedilol (Coreg) 25 mg BID PO Last administered on 10/17/18 08:13; Admin Dose 25 MG; Start 10/13/18 at 21:00 Ferrous Sulfate (Ferrous Sulfate (Ec)) 325 mg DAILY PO Last administered on 10/17/18 08:12; Admin Dose 325 MG; Start 10/14/18 at 09:00 Hydralazine HCl (Apresoline) 100 mg BID PO Last administered on 10/17/18 08:13; Admin Dose 100 MG; Start 10/13/18 at 21:00 Insulin Glargine (Lantus) 8 unit QHS SC Last administered on 10/16/18 22:38; Admin Dose 8 UNIT; Start 10/13/18 at 21:00 IV Flush (NS 3 ml) 3 ml PER PROTOCOL IV ; Start 10/13/18 at 14:00 Ondansetron HCl (Zofran Inj) 4 mg Q6H PRN IV NAUSEA/VOMITING; Start 10/13/18 at 14:00 Nitroglycerin (Nitroglycerin (Sl Tab) 0.4 Mg) 1 tab Q5M PRN SL .CHEST PAIN; Start 10/13/18 at 14:00 Acetaminophen (Tylenol Tab) 650 mg Q6H PRN PO .PAIN 1-3 OR TEMP; Start 10/13/18 at 14:00 Docusate Sodium (Colace) 100 mg Q12H PRN PO .CONSTIPATION; Start 10/13/18 at 14:00 Magnesium Hydroxide (Milk Of Mag) 30 ml DAILY PRN PO .CONSTIPATION; Start 10/13/18 at 14:00 Pantoprazole (Protonix Tab) 40 mg DAILY@06 PO Last administered on 10/17/18at 06:06; Admin Dose 40 MG; Start 10/14/18 at 06:00 Heparin Sodium (Porcine) (Heparin (5000 Units/1ml)) 5,000 unit Q12 SC Last administered on 10/17/18at 08:26; Admin Dose 5,000 UNIT; Start 10/13/18 at 21:00 Miscellaneous Information 1 ea NOTE XX ; Start 10/13/18 at 14:30 Glucose (Glutose) 15 gm Q15M PRN PO DECREASED GLUCOSE; Start 10/13/18 at 14:30 Glucose (Glutose) 22.5 gm Q15M PRN PO DECREASED GLUCOSE; Start 10/13/18 at 14:30 Dextrose (D50w Syringe) 25 ml Q15M PRN IV DECREASED GLUCOSE; Start 10/13/18 at 14:30 Dextrose (D50w Syringe) 50 ml Q15M PRN IV DECREASED GLUCOSE; Start 10/13/18 at 14:30 Glucagon (Glucagen) 1 mg Q15M PRN IM DECREASED GLUCOSE; Start 10/13/18 at 14:30 Glucose (Glutose) 15 gm Q15M PRN BUCCAL DECREASED GLUCOSE; Start 10/13/18 at 14:30 Nicotine (Nicoderm 7 Mg/ 24 Hr) 1 patch DAILY TRANSDERM Last administered on 10/17/18at 08:14; Admin Dose 1 PATCH; Start 10/13/18 at 16:00 Insulin Aspart (Novolog Insulin Pen) NOVOLOG *MILD* ALGORITHM WITH MEALS BEDTIME SC Last administered on 10/16/18at 17:46; Admin Dose 1 UNIT; Start 10/13/18 at 18:00 Calcium Acetate (Phoslo) 667 mg WITH MEALS PO Last administered on 10/17/18at 08:12; Admin Dose 667 MG; Start 10/16/18 at 07:55 Ferric Sodium Gluconate Complex 125 mg/Sodium Chloride 110 ml @ 110 mls/hr DAILY@1300 IVPB Last administered on 10/16/18at 15:26; Admin Dose 110 MLS/HR; S tart 10/16/18 at 13:00; Stop 10/20/18 at 13:59 Albumin Human 100 ml @ 100 mls/hr BID IV Last administered on 10/16/18at 22:24; Admin Dose 100 MLS/HR; Start 10/16/18 at 13:00; Stop 10/18/18 at 12:59 Bumetanide 2 mg/ Dextrose 25 ml @ 50 mls/hr BID DIURETICS IV Last administered on 10/17/18at 06:06; Admin Dose 50 MLS/HR; Start 10/16/18 at 14:30 BRADEN GARCIA Oct 17, 2018 10:04
[2018-10-17] MEDS: ALBUMIN HUMAN 25% 100 ML IV SCH ×2 (10:08→17:28)
--- NOTE | 2018-10-17 10:47 | CONS ---
Assessment/Plan Assessment/Plan Assessment/Plan (Daily) 1. ALEX on CKD III due to hemodynamics from CHF 2.acute CHF, acute on chronic systolic + diastolic 3. 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 H/o DM II 5. H/o HL 6. h/O HTN 7. Anemia of CKD with Iron saturation 25% Plan: ECHO showed 55-60 %. Stage II diastolic dysfunction- decrease bumex to 1mg IV BID with IV albumin iron saturation 25%- will give ferrlecit 125 mg IV daily x 5 doses Renal US showed No hydronephrosis or nephrolithiasis., Normal size kidneys, normal echogenicity will follow up Consultation Date/Type/Reason Admit Date/Time Oct 13, 2018 at 13:26 Initial Consult Date 10/14/18 Type of Consult NEPHROLOGY Requesting Provider: GLADIS CUNHA MD Date/Time of Note DATE: 10/17/18 TIME: 10:47 Exam/Review of Systems Exam Vitals Vital Signs Date Temp Pulse Resp B/P (MAP) Pulse Ox O2 O2 Flow FiO2 Time Delivery Rate 10/17/18 97.8 68 20 139/67 97 Room Air 07:07 (91) Intake and Output 10/16/18 10/16/18 10/17/18 1515:00 23:00 07:00 IntakeIntake Total 700 ml 795 ml 350 ml OutputOutput Total 800 ml 1050 ml 900 ml BalanceBalance -100 ml -255 ml -550 ml Exam Constitutional: alert, awake, no acute distress ENMT: nl external ears & nose Respiratory: congested cough, crackles/rales, diminished breath sounds Cardiovascular: regular rate and rhythm Gastrointestinal: soft, non-tender Musculoskeletal: swelling (2-3+ pitting edema ) Skin: nl turgor Lymph: nl lymph node Results Result Diagram: 10/17/18 0632 10/17/18 0619 Results 24hrs Laboratory Tests Test 10/16/18 11:57 10/16/18 17:31 10/16/18 22:19 10/17/18 06:19 Bedside Glucose 117 146 173 Sodium Level 143 Potassium Level 4.3 Chloride Level 107 Carbon Dioxide Level 27 Anion Gap 9 Blood Urea Nitrogen 49 H Creatinine 2.98 H Est Glomerular Filtrat 23 L Rate mL/min Glucose Level 72 Calcium Level 8.6 Total Bilirubin 0.5 Direct Bilirubin 0.00 Indirect Bilirubin 0.5 Aspartate Amino 16 Transf (AST/SGOT) Alanine 18 Aminotransferase (ALT/SG PT) Alkaline Phosphatase 85 B-Type Natriuretic 4310 H Peptide Total Protein 6.6 Albumin 3.5 Globulin 3.10 Albumin/Globulin Ratio 1.12 Test 10/17/18 06:32 10/17/18 07:58 White Blood Count 5.7 Red Blood Count 2.70 L Hemoglobin 7.8 L Hematocrit 24.3 L Mean Corpuscular Volume 90.0 Mean Corpuscular 28.9 L Hemoglobin Mean Corpuscular 32.1 Hemoglobin Concent Red Cell Distribution 14.2 Width Platelet Count 174 Mean Platelet Volume 11.8 H Immature Granulocytes % 0.200 Neutrophils % 64.1 Lymphocytes % 20.2 Monocytes % 8.9 Eosinophils % 5.7 Basophils % 0.9 Nucleated Red Blood 0.0 Cells % Immature Granulocytes # 0.010 Neutrophils # 3.7 Lymphocytes # 1.2 Monocytes # 0.5 Eosinophils # 0.3 Basophils # 0.1 Nucleated Red Blood 0.0 Cells # Bedside Glucose 86 Medications Medication Current Medications Amlodipine Besylate (Norvasc) 10 mg DAILY PO Last administered on 10/17/18 08:13; Admin Dose 10 MG; Start 10/14/18 at 09:00 Atorvastatin Calcium (Lipitor) 40 mg QHS PO Last administered on 10/16/18 22:25; Admin Dose 40 MG; Start 10/13/18 at 21:00 Carvedilol (Coreg) 25 mg BID PO Last administered on 10/17/18 08:13; Admin Dose 25 MG; Start 10/13/18 at 21:00 Ferrous Sulfate (Ferrous Sulfate (Ec)) 325 mg DAILY PO Last administered on 10/17/18 08:12; Admin Dose 325 MG; Start 10/14/18 at 09:00 Hydralazine HCl (Apresoline) 100 mg BID PO Last administered on 10/17/18 08:13; Admin Dose 100 MG; Start 10/13/18 at 21:00 Insulin Glargine (Lantus) 8 unit QHS SC Last administered on 10/16/18 22:38; Admin Dose 8 UNIT; Start 10/13/18 at 21:00 IV Flush (NS 3 ml) 3 ml PER PROTOCOL IV ; Start 10/13/18 at 14:00 Ondansetron HCl (Zofran Inj) 4 mg Q6H PRN IV NAUSEA/VOMITING; Start 10/13/18 at 14:00 Nitroglycerin (Nitroglycerin (Sl Tab) 0.4 Mg) 1 tab Q5M PRN SL .CHEST PAIN; Start 10/13/18 at 14:00 Acetaminophen (Tylenol Tab) 650 mg Q6H PRN PO .PAIN 1-3 OR TEMP; Start 10/13/18 at 14:00 Docusate Sodium (Colace) 100 mg Q12H PRN PO .CONSTIPATION; Start 10/13/18 at 14 :00 Magnesium Hydroxide (Milk Of Mag) 30 ml DAILY PRN PO .CONSTIPATION; Start 10/13/18 at 14:00 Pantoprazole (Protonix Tab) 40 mg DAILY@06 PO Last administered on 10/17/18at 06:06; Admin Dose 40 MG; Start 10/14/18 at 06:00 Heparin Sodium (Porcine) (Heparin (5000 Units/1ml)) 5,000 unit Q12 SC Last a dministered on 10/17/18at 08:26; Admin Dose 5,000 UNIT; Start 10/13/18 at 21:00 Miscellaneous Information 1 ea NOTE XX ; Start 10/13/18 at 14:30 Glucose (Glutose) 15 gm Q15M PRN PO DECREASED GLUCOSE; Start 10/13/18 at 14:30 Glucose (Glutose) 22.5 gm Q15M PRN PO DECREASED GLUCOSE; Start 10/13/18 at 1 4:30 Dextrose (D50w Syringe) 25 ml Q15M PRN IV DECREASED GLUCOSE; Start 10/13/18 at 14:30 Dextrose (D50w Syringe) 50 ml Q15M PRN IV DECREASED GLUCOSE; Start 10/13/18 at 14:30 Glucagon (Glucagen) 1 mg Q15M PRN IM DECREASED GLUCOSE; Start 10/13/18 at 14:30 Glucose (Glutose) 15 gm Q15M PRN BUCCAL DECREASED GLUCOSE; Start 10/13/18 at 14:30 Nicotine (Nicoderm 7 Mg/ 24 Hr) 1 patch DAILY TRANSDERM Last administered on 10/17/18at 08:14; Admin Dose 1 PATCH; Start 10/13/18 at 16:00 Insulin Aspart (Novolog Insulin Pen) NOVOLOG *MILD* ALGORITHM WITH MEALS BEDTIME SC Last administered on 10/16/18at 17:46; Admin Dose 1 UNIT; Start 10/13/18 at 18:00 Calcium Acetate (Phoslo) 667 mg WITH MEALS PO Last administered on 10/17/18at 08:12; Admin Dose 667 MG; Start 10/16/18 at 07:55 Ferric Sodium Gluconate Complex 125 mg/Sodium Chloride 110 ml @ 110 mls/hr DAILY@1300 IVPB Last administered on 10/16/18at 15:26; Admin Dose 110 MLS/HR; Start 10/16/18 at 13:00; Stop 10/20/18 at 13:59 Albumin Human 100 ml @ 100 mls/hr BID IV Last administered on 10/17/18at 10:08; Admin Dose 100 MLS/HR; Start 10/16/18 at 13:00; Stop 10/18/18 at 12:59 Bumetanide 2 mg/ Dextrose 25 ml @ 50 mls/hr BID DIURETICS IV Last administered on 10/17/18at 06:06; Admin Dose 50 MLS/HR; Start 10/16/18 at 14:30 Metolazone (Zaroxolyn) 5 mg ONCE ONCE PO ; Start 10/17/18 at 11:30; Stop 10/17/18 at 11:31 ANAMARIA SEAMAN MD Oct 17, 2018 10:47
[2018-10-17] MEDS ORDERED: METOLAZONE 5 MG TAB PO ONE (11:30)
--- NOTE | 2018-10-17 14:23 | PN ---
Date/Time of Note Date/Time of Note DATE: 10/17/18 TIME: 14:23 Objective Vitals Vital Signs Date Temp Pulse Resp B/P (MAP) Pulse Ox O2 O2 Flow FiO2 Time Delivery Rate 10/17/18 97.6 69 20 142/73 98 Room Air 10:55 (96) Intake and Output 10/16/18 10/16/18 10/17/18 1515:00 23:00 07:00 IntakeIntake Total 700 ml 795 ml 350 ml OutputOutput Total 800 ml 1050 ml 900 ml BalanceBalance -100 ml -255 ml -550 ml Results Result Diagram: 10/17/18 0632 10/17/18 0619 Medications Medications Current Medications Amlodipine Besylate (Norvasc) 10 mg DAILY PO Last administered on 10/17/18at 08:13; Admin Dose 10 MG; Start 10/14/18 at 09:00 Atorvastatin Calcium (Lipitor) 40 mg QHS PO Last administered on 10/16/18at 22:25; Admin Dose 40 MG; Start 10/13/18 at 21:00 Carvedilol (Coreg) 25 mg BID PO Last administered on 10/17/18at 08:13; Admin Dose 25 MG; Start 10/13/18 at 21:00 Ferrous Sulfate (Ferrous Sulfate (Ec)) 325 mg DAILY PO Last administered on 10/17/18at 08:12; Admin Dose 325 MG; Start 10/14/18 at 09:00 Hydralazine HCl (Apresoline) 100 mg BID PO Last administered on 10/17/18at 08:13; Admin Dose 100 MG; Start 10/13/18 at 21:00 Insulin Glargine (Lantus) 8 unit QHS SC Last administered on 10/16/18at 22:38; Admin Dose 8 UNIT; Start 10/13/18 at 21:00 IV Flush (NS 3 ml) 3 ml PER PROTOCOL IV ; Start 10/13/18 at 14:00 Ondansetron HCl (Zofran Inj) 4 mg Q6H PRN IV NAUSEA/VOMITING; Start 10/13/18 at 14:00 Nitroglycerin (Nitroglycerin (Sl Tab) 0.4 Mg) 1 tab Q5M PRN SL .CHEST PAIN; Start 10/13/18 at 14:00 Acetaminophen (Tylenol Tab) 650 mg Q6H PRN PO .PAIN 1-3 OR TEMP; Start 10/13/18 at 14:00 Docusate Sodium (Colace) 100 mg Q12H PRN PO .CONSTIPATION; Start 10/13/18 at 14:00 Magnesium Hydroxide (Milk Of Mag) 30 ml DAILY PRN PO .CONSTIPATION; Start 10/13/18 at 14:00 Pantoprazole (Protonix Tab) 40 mg DAILY@06 PO Last administered on 10/17/18at 06:06; Admin Dose 40 MG; Start 10/14/18 at 06:00 Heparin Sodium (Porcine) (Heparin (5000 Units/1ml)) 5,000 unit Q12 SC Last administered on 10/17/18at 08:26; Admin Dose 5,000 UNIT; Start 10/13/18 at 21:00 Miscellaneous Information 1 ea NOTE XX ; Start 10/13/18 at 14:30 Glucose (Glutose) 15 gm Q15M PRN PO DECREASED GLUCOSE; Start 10/13/18 at 14:30 Glucose (Glutose) 22.5 gm Q15M PRN PO DECREASED GLUCOSE; Start 10/13/18 at 14:30 Dextrose (D50w Syringe) 25 ml Q15M PRN IV DECREASED GLUCOSE; Start 10/13/18 at 14:30 Dextrose (D50w Syringe) 50 ml Q15M PRN IV DECREASED GLUCOSE; Start 10/13/18 at 14:30 Glucagon (Glucagen) 1 mg Q15M PRN IM DECREASED GLUCOSE; Start 10/13/18 at 14:30 Glucose (Glutose) 15 gm Q15M PRN BUCCAL DECREASED GLUCOSE; Start 10/13/18 at 14:30 Nicotine (Nicoderm 7 Mg/ 24 Hr) 1 patch DAILY TRANSDERM Last administered on 10/17/18at 08:14; Admin Dose 1 PATCH; Start 10/13/18 at 16:00 Insulin Aspart (Novolog Insulin Pen) NOVOLOG *MILD* ALGORITHM WITH MEALS BEDTIME SC Last administered on 10/17/18at 12:13; Admin Dose 1 UNIT; Start 10/13/18 at 18:00 Calcium Acetate (Phoslo) 667 mg WITH MEALS PO Last administered on 10/17/18at 12:07; Admin Dose 667 MG; Start 10/16/18 at 07:55 Ferric Sodium Gluconate Complex 125 mg/Sodium Chloride 110 ml @ 110 mls/hr DAILY@1300 IVPB Last administered on 10/16/18at 15:26; Admin Dose 110 MLS/HR; Start 10/16/18 at 13:00; Stop 10/20/18 at 13:59 Bumetanide (Bumex) 1 mg BID DIURETICS IV ; Start 10/17/18 at 18:00 Albumin Human 100 ml @ 100 mls/hr BID@0500,1700 IV ; Start 10/17/18 at 17:00; Stop 10/18/18 at 11:00 VTE Prophylaxis Risk score (from Ns)>0 risk: 1 [place] [facility] [place] contraindication: other Lines/Catheters IV Catheter Type: Iqbal in Place: No Assessment/Plan Hospital Course Subjective Patient doing well, states legs have improved, shortness of breath has improved Objective Physical exam General: Patient is laying in bed and answers questions appropriately Mentation: Patient is alert and oriented 4, Head: Normocephalic atraumatic Eyes: EOMI, pupils reactive to light Neck: Supple, nontender, midline Respiratory: Coarse to auscultation bilaterally Cardiovascular: regular rate, no obvious murmurs Gastrointestinal: non-tender to palpation, bowel sounds heard. Neurological: Moves all extremities spontaneously Skin: No new skin lesions Assessment/Plan 1. Acute on chronic heart failure - BNP elevated, 4000 on admission - ECHO ordered to assess EF, likely diastolic dysfunction - Diuretics on board - Dr. Gutiérrez, Cardiology consulted for assistance with diuresis and medication adjustments - Daily weights and I/O - No effusions or pulmonary edema on CXR Lower extremity swelling, bilateral -Secondary to above diastolic heart failure -Venous ultrasound pending -Continue diuretics 2. ALEX on CKD - possible secondary to cardio renal vs diabetic nephropathy - Unsure baseline - Dr. Lieberman, Nephrology consulted for further recommendations - Renal US noted - avoid nephrotoxic agents 3. Anemia -Iron levels noted - no need for transfusions at this time 4. Diabetes Mellitus - A1c ordered - ISS and accuchecks - holding Metformin in setting of ALEX 5. HTN - continue home medications 6. Constipation - bowel regime 7. LE edema - secondary to CHF 8. Diet - Carb controlled 9. Disposition -Follow-up with nephrology and cardiology recommendations, continue diuresis. FRANSICO BERRY Oct 17, 2018 14:23
[2018-10-17] MEDS: SOD FERRIC GLUC COMPLX 125 MG in SOD CHLORIDE 0.9% 100 ML IVPB SCH (14:44)
[2018-10-17] MEDS: BUMETANIDE 1 MG INJ IV SCH (18:00)
[2018-10-17] MEDS: ATORVASTATIN 40 MG TAB PO SCH (21:08)
[2018-10-17] MEDS: INSULIN GLARGINE [LANtus] 3 ML PEN SC SCH (21:43)
[2018-10-18 03:36] VITALS: BP 124/60; PULSE 76; RESP 20
[2018-10-18] MEDS: ALBUMIN HUMAN 25% 100 ML IV SCH (05:24)
[2018-10-18] MEDS: BUMETANIDE 1 MG INJ IV SCH (05:25)
[2018-10-18] MEDS: PANTOPRAZOLE (EC) 40 MG TAB PO SCH (05:25)
[2018-10-18 07:39] VITALS: BP 131/64; PULSE 72; RESP 20
[2018-10-18] MEDS: INSULIN ASPART [NOVOLOG] 3 ML PEN SC SCH ×4 (07:55→21:00)
[2018-10-18] MEDS: FERROUS SULFATE (EC) 325 MG TAB PO SCH (08:15)
[2018-10-18] MEDS: CALCIUM ACETATE 667 MG CAP PO SCH ×3 (08:15→17:55)
[2018-10-18] MEDS: AMLODIPINE 10 MG TAB PO SCH (08:16)
[2018-10-18] MEDS: NICOTINE (7 MG/24 HR) PATCH TRANSDERM SCH (08:16)
[2018-10-18] MEDS: HEPARIN 5,000 UNIT/1 ML VIAL SC SCH ×2 (08:38→21:06)
--- NOTE | 2018-10-18 09:58 | CONS ---
Assessment/Plan Assessment/Plan Hospital Course (Demo Recall) Acute on chronic diastolic heart failure: EF preserved, grade 2 diastolic dysfunction. Improving with diuresis. Close to euvolemic with improved JVP HTN CKD: unknown baseline. Slightly worse with diuresis -continue bumex 1mg IV BID. Probably bumex 1 mg PO BID on discharge -coreg 25mg BID -amlodipine 10mg -hydralazine 100mg BID Consultation Date/Type/Reason Admit Date/Time Oct 13, 2018 at 13:26 Initial Consult Date 10/14/18 Type of Consult Cardiology Requesting Provider: GLADIS CUNHA MD Date/Time of Note DATE: 10/18/18 TIME: 09:57 24 HR Interval Summary Free Text/Dictation Cr slightly worse. Bumex decreased. Clinically improving Exam/Review of Systems Vital Signs Vitals Vital Signs Date Temp Pulse Resp B/P (MAP) Pulse Ox O2 O2 Flow FiO2 Time Delivery Rate 10/18/18 97.7 72 20 131/64 98 Room Air 07:39 (86) Intake and Output 10/17/18 10/17/18 10/18/18 1414:59 22:59 06:59 IntakeIntake Total 340 ml 1230 ml 1300 ml OutputOutput Total 620 ml 1050 ml 1725 ml BalanceBalance -280 ml 180 ml -425 ml Exam Constitutional: alert, oriented Psych: no complaints, nl mood/affect Head: normocephalic, atraumatic Neck: jvd (8-9cm) Respiratory: crackles/rales (mild); No clear to auscultation Cardiovascular: regular rate and rhythm, edema (1+) Neurological: nl mental status, nl speech Labs Result Diagram: 10/18/1862010/18/18 0621 Results 24hrs Laboratory Tests Test 10/17/18 11:38 10/17/18 17:19 10/17/18 21:16 10/18/18 06:21 Bedside Glucose 156 108 113 White Blood Count 5.8 Red Blood Count 2.48 L Hemoglobin 7.2 L Hematocrit 22.2 L Mean Corpuscular Volume 89.5 Mean Corpuscular 29.0 Hemoglobin Mean Corpuscular 32.4 Hemoglobin Concent Red Cell Distribution 14.4 Width Platelet Count 155 Mean Platelet Volume 11.6 H Immature Granulocytes % 0.500 H Neutrophils % 63.7 Lymphocytes % 19.6 Monocytes % 9.6 Eosinophils % 5.7 Basophils % 0.9 Nucleated Red Blood 0.0 Cells % Immature Granulocytes # 0.030 Neutrophils # 3.7 Lymphocytes # 1.1 Monocytes # 0.6 Eosinophils # 0.3 Basophils # 0.1 Nucleated Red Blood 0.0 Cells # Sodium Level 144 Potassium Level 4.2 Chloride Level 107 Carbon Dioxide Level 26 Anion Gap 11 Blood Urea Nitrogen 57 H Creatinine 3.20 H Est Glomerular Filtrat 21 L Rate mL/min Glucose Level 115 # Calcium Level 8.8 Phosphorus Level 4.8 Magnesium Level 2.4 Test 10/18/18 08:05 Bedside Glucose 115 Medications Medications Current Medications Amlodipine Besylate (Norvasc) 10 mg DAILY PO Last administered on 10/18/18 08:16; Admin Dose 10 MG; Start 10/14/18 at 09:00 Atorvastatin Calcium (Lipitor) 40 mg QHS PO Last administered on 10/17/18 21:08; Admin Dose 40 MG; Start 10/13/18 at 21:00 Carvedilol (Coreg) 25 mg BID PO Last administered on 10/18/18 08:16; Admin Dose 25 MG; Start 10/13/18 at 21:00 Ferrous Sulfate (Ferrous Sulfate (Ec)) 325 mg DAILY PO Last administered on 10/18/18 08:15; Admin Dose 325 MG; Start 10/14/18 at 09:00; Status Hold Hydralazine HCl (Apresoline) 100 mg BID PO Last administered on 10/18/18 08:15; Admin Dose 100 MG; Start 10/13/18 at 21:00 Insulin Glargine (Lantus) 8 unit QHS SC Last administered on 10/17/18 21:43; Admin Dose 8 UNIT; Start 10/13/18 at 21:00 IV Flush (NS 3 ml) 3 ml PER PROTOCOL IV ; Start 10/13/18 at 14:00 Ondansetron HCl (Zofran Inj) 4 mg Q6H PRN IV NAUSEA/VOMITING; Start 10/13/18 at 14:00 Nitroglycerin (Nitroglycerin (Sl Tab) 0.4 Mg) 1 tab Q5M PRN SL .CHEST PAIN; Start 10/13/18 at 14:00 Acetaminophen (Tylenol Tab) 650 mg Q6H PRN PO .PAIN 1-3 OR TEMP; Start 10/13/18 at 14:00 Docusate Sodium (Colace) 100 mg Q12H PRN PO .CONSTIPATION; Start 10/13/18 at 14:00 Magnesium Hydroxide (Milk Of Mag) 30 ml DAILY PRN PO .CONSTIPATION; Start 10/13/18 at 14:00 Pantoprazole (Protonix Tab) 40 mg DAILY@06 PO Last administered on 10/18/18at 05:25; Admin Dose 40 MG; Start 10/14/18 at 06:00 Heparin Sodium (Porcine) (Heparin (5000 Units/1ml)) 5,000 unit Q12 SC Last administered on 10/18/18at 08:38; Admin Dose 5,000 UNIT; Start 10/13/18 at 21:00 Miscellaneous Information 1 ea NOTE XX ; Start 10/13/18 at 14:30 Glucose (Glutose) 15 gm Q15M PRN PO DECREASED GLUCOSE; Start 10/13/18 at 14:30 Glucose (Glutose) 22.5 gm Q15M PRN PO DECREASED GLUCOSE; Start 10/13/18 at 14:30 Dextrose (D50w Syringe) 25 ml Q15M PRN IV DECREASED GLUCOSE; Start 10/13/18 at 14:30 Dextrose (D50w Syringe) 50 ml Q15M PRN IV DECREASED GLUCOSE; Start 10/13/18 at 14:30 Glucagon (Glucagen) 1 mg Q15M PRN IM DECREASED GLUCOSE; Start 10/13/18 at 14:30 Glucose (Glutose) 15 gm Q15M PRN BUCCAL DECREASED GLUCOSE; Start 10/13/18 at 14:30 Nicotine (Nicoderm 7 Mg/ 24 Hr) 1 patch DAILY TRANSDERM Last administered on 10/18/18at 08:16; Admin Dose 1 PATCH; Start 10/13/18 at 16:00 Insulin Aspart (Novolog Insulin Pen) NOVOLOG *MILD* ALGORITHM WITH MEALS BEDTIME SC Last administered on 10/17/18at 12:13; Admin Dose 1 UNIT; Start 10/13/18 at 18:00 Calcium Acetate (Phoslo) 667 mg WITH MEALS PO Last administered on 10/18/18at 08:15; Admin Dose 667 MG; Start 10/16/18 at 07:55 Ferric Sodium Gluconate Complex 125 mg/Sodium Chloride 110 ml @ 110 mls/hr DAILY@1300 IVPB Last administered on 10/17/18at 14:44; Admin Dose 110 MLS/HR; Start 10/16/18 at 13:00; Stop 10/20/18 at 13:59 Bumetanide (Bumex) 1 mg BID DIURETICS IV Last administered on 10/18/18at 05:25; Admin Dose 1 MG; Start 10/17/18 at 18:00 Albumin Human 100 ml @ 100 mls/hr BID@0500,1700 IV Last administered on 10/18/18at 05:24; Admin Dose 100 MLS/HR; Start 10/17/18 at 17:00; Stop 10/18/18 at 11:00 BRADEN GARCIA Oct 18, 2018 09:58
--- NOTE | 2018-10-18 10:23 | CONS ---
Assessment/Plan Assessment/Plan Assessment/Plan (Daily) 1. ALEX on CKD III due to hemodynamics from CHF 2.acute CHF, acute on chronic systolic + diastolic 3. 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 H/o DM II 5. H/o HL 6. h/O HTN 7. Anemia of CKD with Iron saturation 25% Plan: ECHO showed 55-60 %. Stage II diastolic dysfunction- stop bumex now iron saturation 25%- will give ferrlecit 125 mg IV daily x 5 doses Renal US showed No hydronephrosis or nephrolithiasis., Normal size kidneys, normal echogenicity will follow up Consultation Date/Type/Reason Admit Date/Time Oct 13, 2018 at 13:26 Initial Consult Date 10/14/18 Type of Consult NEPHROLOGY Requesting Provider: GLADIS CUNHA MD Date/Time of Note DATE: 10/18/18 TIME: 10:23 24 HR Interval Summary Free Text/Dictation Cr bumped , K normal, Bp stable Exam/Review of Systems Exam Vitals Vital Signs Date Temp Pulse Resp B/P (MAP) Pulse Ox O2 O2 Flow FiO2 Time Delivery Rate 10/18/18 97.7 72 20 131/64 98 Room Air 07:39 (86) Intake and Output 10/17/18 10/17/18 10/18/18 1515:00 23:00 07:00 IntakeIntake Total 340 ml 1230 ml 1300 ml OutputOutput Total 620 ml 1050 ml 1725 ml BalanceBalance -280 ml 180 ml -425 ml Exam Constitutional: alert, awake, no acute distress ENMT: nl external ears & nose Respiratory: congested cough, crackles/rales, diminished breath sounds Cardiovascular: regular rate and rhythm Gastrointestinal: soft, non-tender Musculoskeletal: swelling (2-3+ pitting edema ) Skin: nl turgor Lymph: nl lymph node Results Result Diagram: 10/18/18 0621 10/18/18 0621 Results 24hrs Laboratory Tests Test 10/17/18 11:38 10/17/18 17:19 10/17/18 21:16 10/18/18 06:21 Bedside Glucose 156 108 113 White Blood Count 5.8 Red Blood Count 2.48 L Hemoglobin 7.2 L Hematocrit 22.2 L Mean Corpuscular Volume 89.5 Mean Corpuscular 29.0 Hemoglobin Mean Corpuscular 32.4 Hemoglobin Concent Red Cell Distribution 14.4 Width Platelet Count 155 Mean Platelet Volume 11.6 H Immature Granulocytes % 0.500 H Neutrophils % 63.7 Lymphocytes % 19.6 Monocytes % 9.6 Eosinophils % 5.7 Basophils % 0.9 Nucleated Red Blood 0.0 Cells % Immature Granulocytes # 0.030 Neutrophils # 3.7 Lymphocytes # 1.1 Monocytes # 0.6 Eosinophils # 0.3 Basophils # 0.1 Nucleated Red Blood 0.0 Cells # Sodium Level 144 Potassium Level 4.2 Chloride Level 107 Carbon Dioxide Level 26 Anion Gap 11 Blood Urea Nitrogen 57 H Creatinine 3.20 H Est Glomerular Filtrat 21 L Rate mL/min Glucose Level 115 # Calcium Level 8.8 Phosphorus Level 4.8 Magnesium Level 2.4 Test 10/18/18 08:05 Bedside Glucose 115 Medications Medication Current Medications Amlodipine Besylate (Norvasc) 10 mg DAILY PO Last administered on 10/18/18 08:16; Admin Dose 10 MG; Start 10/14/18 at 09:00 Atorvastatin Calcium (Lipitor) 40 mg QHS PO Last administered on 10/17/18 21:08; Admin Dose 40 MG; Start 10/13/18 at 21:00 Carvedilol (Coreg) 25 mg BID PO Last administered on 10/18/18 08:16; Admin Dose 25 MG; Start 10/13/18 at 21:00 Ferrous Sulfate (Ferrous Sulfate (Ec)) 325 mg DAILY PO Last administered on 10/18/18 08:15; Admin Dose 325 MG; Start 10/14/18 at 09:00; Status Hold Hydralazine HCl (Apresoline) 100 mg BID PO Last administered on 10/18/18 08:15; Admin Dose 100 MG; Start 10/13/18 at 21:00 Insulin Glargine (Lantus) 8 unit QHS SC Last administered on 10/17/18 21:43; Admin Dose 8 UNIT; Start 10/13/18 at 21:00 IV Flush (NS 3 ml) 3 ml PER PROTOCOL IV ; Start 10/13/18 at 14:00 Ondansetron HCl (Zofran Inj) 4 mg Q6H PRN IV NAUSEA/VOMITING; Start 10/13/18 at 14:00 Nitroglycerin (Nitroglycerin (Sl Tab) 0.4 Mg) 1 tab Q5M PRN SL .CHEST PAIN; Start 10/13/18 at 14:00 Acetaminophen (Tylenol Tab) 650 mg Q6H PRN PO .PAIN 1-3 OR TEMP; Start 10/13/18 at 14:00 Docusate Sodium (Colace) 100 mg Q12H PRN PO .CONSTIPATION; Start 10/13/18 at 14:00 Magnesium Hydroxide (Milk Of Mag) 30 ml DAILY PRN PO .CONSTIPATION; Start 10/13/18 at 14:00 Pantoprazole (Protonix Tab) 40 mg DAILY@06 PO Last administered on 10/18/18at 05:25; Admin Dose 40 MG; Start 10/14/18 at 06:00 Heparin Sodium (Porcine) (Heparin (5000 Units/1ml)) 5,000 unit Q12 SC Last administered on 10/18/18at 08:38; Admin Dose 5,000 UNIT; Start 10/13/18 at 21:00 Miscellaneous Information 1 ea NOTE XX ; Start 10/13/18 at 14:30 Glucose (Glutose) 15 gm Q15M PRN PO DECREASED GLUCOSE; Start 10/13/18 at 14:30 Glucose (Glutose) 22.5 gm Q15M PRN PO DECREASED GLUCOSE; Start 10/13/18 at 14:30 Dextrose (D50w Syringe) 25 ml Q15M PRN IV DECREASED GLUCOSE; Start 10/13/18 at 14:30 Dextrose (D50w Syringe) 50 ml Q15M PRN IV DECREASED GLUCOSE; Start 10/13/18 at 14:30 Glucagon (Glucagen) 1 mg Q15M PRN IM DECREASED GLUCOSE; Start 10/13/18 at 14:30 Glucose (Glutose) 15 gm Q15M PRN BUCCAL DECREASED GLUCOSE; Start 10/13/18 at 14:30 Nicotine (Nicoderm 7 Mg/ 24 Hr) 1 patch DAILY TRANSDERM Last administered on 10/18/18at 08:16; Admin Dose 1 PATCH; Start 10/13/18 at 16:00 Insulin Aspart (Novolog Insulin Pen) NOVOLOG *MILD* ALGORITHM WITH MEALS BEDTIME SC Last administered on 10/17/18at 12:13; Admin Dose 1 UNIT; Start 10/13/18 at 18:00 Calcium Acetate (Phoslo) 667 mg WITH MEALS PO Last administered on 10/18/18at 08:15; Admin Dose 667 MG; Start 10/16/18 at 07:55 Ferric Sodium Gluconate Complex 125 mg/Sodium Chloride 110 ml @ 110 mls/hr DAILY@1300 IVPB Last administered on 10/17/18at 14:44; Admin Dose 110 MLS/HR; Start 10/16/18 at 13:00; Stop 10/20/18 at 13:59 Bumetanide (Bumex) 1 mg BID DIURETICS IV Last administered on 10/18/18at 05:25; Admin Dose 1 MG; Start 10/17/18 at 18:00 Albumin Human 100 ml @ 100 mls/hr BID@0500,1700 IV Last administered on 10/18/18at 05:24; Admin Dose 100 MLS/HR; Start 10/17/18 at 17:00; Stop 10/18/18 at 11:00 ANAMARIA SEAMAN MD Oct 18, 2018 10:23
[2018-10-18 11:19] VITALS: BP 123/65; PULSE 71; RESP 20
[2018-10-18] MEDS: SOD FERRIC GLUC COMPLX 125 MG in SOD CHLORIDE 0.9% 100 ML IVPB SCH (13:00)
--- NOTE | 2018-10-18 13:25 | PN ---
Date/Time of Note Date/Time of Note DATE: 10/18/18 TIME: 13:24 Objective Vitals Vital Signs Date Temp Pulse Resp B/P (MAP) Pulse Ox O2 O2 Flow FiO2 Time Delivery Rate 10/18/18 98.2 71 20 123/65 95 Room Air 11:19 (84) Intake and Output 10/17/18 10/17/18 10/18/18 1515:00 23:00 07:00 IntakeIntake Total 340 ml 1230 ml 1300 ml OutputOutput Total 620 ml 1050 ml 1725 ml BalanceBalance -280 ml 180 ml -425 ml Results Result Diagram: 10/18/1862010/18/1821 Medications Medications Current Medications Amlodipine Besylate (Norvasc) 10 mg DAILY PO Last administered on 10/18/18 08:16; Admin Dose 10 MG; Start 10/14/18 at 09:00 Atorvastatin Calcium (Lipitor) 40 mg QHS PO Last administered on 10/17/18 21:08; Admin Dose 40 MG; Start 10/13/18 at 21:00 Carvedilol (Coreg) 25 mg BID PO Last administered on 10/18/18at 08:16; Admin Dose 25 MG; Start 10/13/18 at 21:00 Ferrous Sulfate (Ferrous Sulfate (Ec)) 325 mg DAILY PO Last administered on 10/18/18 08:15; Admin Dose 325 MG; Start 10/14/18 at 09:00; Status Hold Hydralazine HCl (Apresoline) 100 mg BID PO Last administered on 10/18/18 08:15; Admin Dose 100 MG; Start 10/13/18 at 21:00 Insulin Glargine (Lantus) 8 unit QHS SC Last administered on 10/17/18at 21:43; Admin Dose 8 UNIT; Start 10/13/18 at 21:00 IV Flush (NS 3 ml) 3 ml PER PROTOCOL IV ; Start 10/13/18 at 14:00 Ondansetron HCl (Zofran Inj) 4 mg Q6H PRN IV NAUSEA/VOMITING; Start 10/13/18 at 14:00 Nitroglycerin (Nitroglycerin (Sl Tab) 0.4 Mg) 1 tab Q5M PRN SL .CHEST PAIN; Start 10/13/18 at 14:00 Acetaminophen (Tylenol Tab) 650 mg Q6H PRN PO .PAIN 1-3 OR TEMP; Start 10/13/18 at 14:00 Docusate Sodium (Colace) 100 mg Q12H PRN PO .CONSTIPATION; Start 10/13/18 at 14:00 Magnesium Hydroxide (Milk Of Mag) 30 ml DAILY PRN PO .CONSTIPATION; Start 10/13/18 at 14:00 Pantoprazole (Protonix Tab) 40 mg DAILY@06 PO Last administered on 10/18/18at 05:25; Admin Dose 40 MG; Start 10/14/18 at 06:00 Heparin Sodium (Porcine) (Heparin (5000 Units/1ml)) 5,000 unit Q12 SC Last administered on 10/18/18at 08:38; Admin Dose 5,000 UNIT; Start 10/13/18 at 21:00 Miscellaneous Information 1 ea NOTE XX ; Start 10/13/18 at 14:30 Glucose (Glutose) 15 gm Q15M PRN PO DECREASED GLUCOSE; Start 10/13/18 at 14:30 Glucose (Glutose) 22.5 gm Q15M PRN PO DECREASED GLUCOSE; Start 10/13/18 at 14:30 Dextrose (D50w Syringe) 25 ml Q15M PRN IV DECREASED GLUCOSE; Start 10/13/18 at 14:30 Dextrose (D50w Syringe) 50 ml Q15M PRN IV DECREASED GLUCOSE; Start 10/13/18 at 14:30 Glucagon (Glucagen) 1 mg Q15M PRN IM DECREASED GLUCOSE; Start 10/13/18 at 14:30 Glucose (Glutose) 15 gm Q15M PRN BUCCAL DECREASED GLUCOSE; Start 10/13/18 at 14 :30 Nicotine (Nicoderm 7 Mg/ 24 Hr) 1 patch DAILY TRANSDERM Last administered on 10/18/18at 08:16; Admin Dose 1 PATCH; Start 10/13/18 at 16:00 Insulin Aspart (Novolog Insulin Pen) NOVOLOG *MILD* ALGORITHM WITH MEALS BEDTIME SC Last administered on 10/17/18at 12:13; Admin Dose 1 UNIT; Start 10/13/18 at 18:00 Calcium Acetate (Phoslo) 667 mg WITH MEALS PO Last administered on 10/18/18at 11:59; Admin Dose 667 MG; Start 10/16/18 at 07:55 Ferric Sodium Gluconate Complex 125 mg/Sodium Chloride 110 ml @ 110 mls/hr DAILY@1300 IVPB Last administered on 10/18/18at 13:00; Admin Dose 110 MLS/HR; Start 10/16/18 at 13:00; Stop 10/20/18 at 13:59 VTE Prophylaxis Risk score (from Ns)>0 risk: 2 SCD applied (from [facility] [place]): Yes Lines/Catheters IV Catheter Type: Iqbal in Place: No Assessment/Plan Hospital Course Subjective Patient doing well, states legs have improved, shortness of breath has improved Objective Physical exam General: Patient is laying in bed and answers questions appropriately Mentation: Patient is alert and oriented 4, Head: Normocephalic atraumatic Eyes: EOMI, pupils reactive to light Neck: Supple, nontender, midline Respiratory: Coarse to auscultation bilaterally Cardiovascular: regular rate, no obvious murmurs Gastrointestinal: non-tender to palpation, bowel sounds heard. Neurological: Moves all extremities spontaneously Skin: No new skin lesions Assessment/Plan 1. Acute on chronic heart failure - BNP elevated, 4000 on admission - ECHO ordered to assess EF, likely diastolic dysfunction - Diuretics on board - Dr. Gutiérrez, Cardiology consulted for assistance with diuresis and medication adjustments - Daily weights and I/O - No effusions or pulmonary edema on CXR Lower extremity swelling, bilateral -Secondary to above diastolic heart failure -Venous ultrasound noted -Continue diuretics 2. ALEX on CKD - possible secondary to cardio renal vs diabetic nephropathy - Unsure baseline - Dr. Lieberman, Nephrology consulted for further recommendations - Renal US noted - avoid nephrotoxic agents 3. Anemia -Iron levels noted - no need for transfusions at this time 4. Diabetes Mellitus - A1c ordered - ISS and accuchecks - holding Metformin in setting of ALEX 5. HTN - continue home medications 6. Constipation - bowel regime 7. LE edema - secondary to CHF 8. Diet - Carb controlled 9. Disposition -Follow-up with nephrology and cardiology recommendations, continue diuresis. We will hold off on continued IV diuresis due to acute kidney injury, possible restart diuresis tomorrow per nephrology. FRANSICO BERRY Oct 18, 2018 13:25
[2018-10-18 15:07] VITALS: BP 128/60; PULSE 71; RESP 20
[2018-10-18 20:00] VITALS: BP 138/68; PULSE 70; RESP 20
[2018-10-18] MEDS: ATORVASTATIN 40 MG TAB PO SCH (20:42)
[2018-10-18] MEDS: INSULIN GLARGINE [LANtus] 3 ML PEN SC SCH (21:58)
[2018-10-19] VITALS: BP 136/70; PULSE 76; RESP 18
[2018-10-19 04:00] VITALS: BP 137/62; PULSE 71; RESP 20
[2018-10-19] MEDS: PANTOPRAZOLE (EC) 40 MG TAB PO SCH (06:14)
[2018-10-19 07:40] VITALS: BP 148/67; PULSE 68; RESP 18
[2018-10-19] MEDS: INSULIN ASPART [NOVOLOG] 3 ML PEN SC SCH ×4 (07:49→22:10)
[2018-10-19] MEDS: CALCIUM ACETATE 667 MG CAP PO SCH ×3 (07:50→17:31)
[2018-10-19] MEDS: AMLODIPINE 10 MG TAB PO SCH (08:14)
[2018-10-19] MEDS: NICOTINE (7 MG/24 HR) PATCH TRANSDERM SCH (08:14)
[2018-10-19] MEDS: HEPARIN 5,000 UNIT/1 ML VIAL SC SCH ×2 (08:18→20:47)
[2018-10-19 11:20] VITALS: BP 124/60; PULSE 67; RESP 19
--- NOTE | 2018-10-19 11:21 | CONS ---
Assessment/Plan Assessment/Plan Assessment/Plan (Daily) 1. ALEX on CKD III due to hemodynamics from CHF 2.acute CHF, acute on chronic systolic + diastolic 3. 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 H/o DM II 5. H/o HL 6. h/O HTN 7. Anemia of CKD with Iron saturation 25% Plan: BUN/Cr 65/3.4,other electrolytes stable ECHO showed 55-60 %. Stage II diastolic dysfunction- stop bumex now iron saturation 25%- will give ferrlecit 125 mg IV daily x 5 doses Renal US showed No hydronephrosis or nephrolithiasis., Normal size kidneys, normal echogenicity will follow up Consultation Date/Type/Reason Admit Date/Time Oct 13, 2018 at 13:26 Initial Consult Date 10/14/18 Type of Consult NEPHROLOGY Requesting Provider: GLADIS CUNHA MD Date/Time of Note DATE: 10/19/18 TIME: 11:20 24 HR Interval Summary Free Text/Dictation BUN/Cr 65/3.4, BP stable Exam/Review of Systems Exam Vitals Vital Signs Date Temp Pulse Resp B/P (MAP) Pulse Ox O2 O2 Flow FiO2 Time Delivery Rate 10/19/18 98.0 67 19 124/60 95 11:20 (81) 10/18/18 Room Air 15:07 Intake and Output 10/18/18 10/18/18 10/19/18 1515:00 23:00 07:00 IntakeIntake Total 350 ml 240 ml 600 ml OutputOutput Total 700 ml 500 ml 500 ml BalanceBalance -350 ml -260 ml 100 ml Exam Constitutional: alert, awake, no acute distress ENMT: nl external ears & nose Respiratory: congested cough, crackles/rales, diminished breath sounds Cardiovascular: regular rate and rhythm Gastrointestinal: soft, non-tender Musculoskeletal: swelling (2-3+ pitting edema ) Skin: nl turgor Lymph: nl lymph node Results Result Diagram: 10/19/1862810/19/18628 Results 24hrs Laboratory Tests Test 10/18/18 11:58 10/18/18 17:25 10/18/18 21:50 10/19/18 06:29 Bedside Glucose 115 117 167 White Blood Count 6.1 Red Blood Count 2.49 L Hemoglobin 7.3 L Hematocrit 22.4 L Mean Corpuscular Volume 90.0 Mean Corpuscular 29.3 Hemoglobin Mean Corpuscular 32.6 Hemoglobin Concent Red Cell Distribution 14.3 Width Platelet Count 163 Mean Platelet Volume 12.1 H Immature Granulocytes % 0.300 Neutrophils % 60.6 Lymphocytes % 19.8 Monocytes % 12.2 H Eosinophils % 6.6 Basophils % 0.5 Nucleated Red Blood 0.0 Cells % Immature Granulocytes # 0.020 Neutrophils # 3.7 Lymphocytes # 1.2 Monocytes # 0.7 Eosinophils # 0.4 Basophils # 0.0 Nucleated Red Blood 0.0 Cells # Sodium Level 143 Potassium Level 4.2 Chloride Level 107 Carbon Dioxide Level 26 Anion Gap 10 Blood Urea Nitrogen 65 H Creatinine 3.40 H Est Glomerular Filtrat 19 L Rate mL/min Glucose Level 86 Calcium Level 8.7 Phosphorus Level 5.1 H Magnesium Level 2.5 Test 10/19/18 07:48 Bedside Glucose 104 Medications Medication Current Medications Amlodipine Besylate (Norvasc) 10 mg DAILY PO Last administered on 10/19/18 08:14; Admin Dose 10 MG; Start 10/14/18 at 09:00 Atorvastatin Calcium (Lipitor) 40 mg QHS PO Last administered on 10/18/18 20:42; Admin Dose 40 MG; Start 10/13/18 at 21:00 Carvedilol (Coreg) 25 mg BID PO Last administered on 10/19/18 08:14; Admin Dose 25 MG; Start 10/13/18 at 21:00 Ferrous Sulfate (Ferrous Sulfate (Ec)) 325 mg DAILY PO Last administered on 10/18/18 08:15; Admin Dose 325 MG; Start 10/14/18 at 09:00; Status Hold Hydralazine HCl (Apresoline) 100 mg BID PO Last administered on 10/19/18 08:14; Admin Dose 100 MG; Start 10/13/18 at 21:00 Insulin Glargine (Lantus) 8 unit QHS SC Last administered on 10/18/18 21:58; Admin Dose 8 UNIT; Start 10/13/18 at 21:00 IV Flush (NS 3 ml) 3 ml PER PROTOCOL IV ; Start 10/13/18 at 14:00 Ondansetron HCl (Zofran Inj) 4 mg Q6H PRN IV NAUSEA/VOMITING; Start 10/13/18 at 14:00 Nitroglycerin (Nitroglycerin (Sl Tab) 0.4 Mg) 1 tab Q5M PRN SL .CHEST PAIN; Start 10/13/18 at 14:00 Acetaminophen (Tylenol Tab) 650 mg Q6H PRN PO .PAIN 1-3 OR TEMP; Start 10/13/18 at 14:00 Docusate Sodium (Colace) 100 mg Q12H PRN PO .CONSTIPATION; Start 10/13/18 at 14:00 Magnesium Hydroxide (Milk Of Mag) 30 ml DAILY PRN PO .CONSTIPATION; Start 10/13/18 at 14:00 Pantoprazole (Protonix Tab) 40 mg DAILY@06 PO Last administered on 10/19/18at 06:14; Admin Dose 40 MG; Start 10/14/18 at 06:00 Heparin Sodium (Porcine) (Heparin (5000 Units/1ml)) 5,000 unit Q12 SC Last administered on 10/19/18at 08:18; Admin Dose 5,000 UNIT; Start 10/13/18 at 21:00 Miscellaneous Information 1 ea NOTE XX ; Start 10/13/18 at 14:30 Glucose (Glutose) 15 gm Q15M PRN PO DECREASED GLUCOSE; Start 10/13/18 at 14:30 Glucose (Glutose) 22.5 gm Q15M PRN PO DECREASED GLUCOSE; Start 10/13/18 at 14:30 Dextrose (D50w Syringe) 25 ml Q15M PRN IV DECREASED GLUCOSE; Start 10/13/18 at 14:30 Dextrose (D50w Syringe) 50 ml Q15M PRN IV DECREASED GLUCOSE; Start 10/13/18 at 14:30 Glucagon (Glucagen) 1 mg Q15M PRN IM DECREASED GLUCOSE; Start 10/13/18 at 14:30 Glucose (Glutose) 15 gm Q15M PRN BUCCAL DECREASED GLUCOSE; Start 10/13/18 at 14 :30 Nicotine (Nicoderm 7 Mg/ 24 Hr) 1 patch DAILY TRANSDERM Last administered on 10/19/18at 08:14; Admin Dose 1 PATCH; Start 10/13/18 at 16:00 Insulin Aspart (Novolog Insulin Pen) NOVOLOG *MILD* ALGORITHM WITH MEALS BEDTIME SC Last administered on 10/17/18at 12:13; Admin Dose 1 UNIT; Start 10/13/18 at 18:00 Calcium Acetate (Phoslo) 667 mg WITH MEALS PO Last administered on 10/19/18at 07:50; Admin Dose 667 MG; Start 10/16/18 at 07:55 Ferric Sodium Gluconate Complex 125 mg/Sodium Chloride 110 ml @ 110 mls/hr DAILY@1300 IVPB Last administered on 10/18/18at 13:00; Admin Dose 110 MLS/HR; Start 10/16/18 at 13:00; Stop 10/20/18 at 13:59 ANAMARIA SEAMAN MD Oct 19, 2018 11:20
--- NOTE | 2018-10-19 11:58 | PN ---
Date/Time of Note Date/Time of Note DATE: 10/19/18 TIME: 11:57 Objective Vitals Vital Signs Date Temp Pulse Resp B/P (MAP) Pulse Ox O2 O2 Flow FiO2 Time Delivery Rate 10/19/18 98.0 67 19 124/60 95 11:20 (81) 10/18/18 Room Air 15:07 Intake and Output 10/18/18 10/18/18 10/19/18 1515:00 23:00 07:00 IntakeIntake Total 350 ml 240 ml 600 ml OutputOutput Total 700 ml 500 ml 500 ml BalanceBalance -350 ml -260 ml 100 ml Results Result Diagram: 10/19/1862810/19/18628 Medications Medications Current Medications Amlodipine Besylate (Norvasc) 10 mg DAILY PO Last administered on 10/19/18 08:14; Admin Dose 10 MG; Start 10/14/18 at 09:00 Atorvastatin Calcium (Lipitor) 40 mg QHS PO Last administered on 10/18/18 20:42; Admin Dose 40 MG; Start 10/13/18 at 21:00 Carvedilol (Coreg) 25 mg BID PO Last administered on 10/19/18 08:14; Admin Dose 25 MG; Start 10/13/18 at 21:00 Ferrous Sulfate (Ferrous Sulfate (Ec)) 325 mg DAILY PO Last administered on 10/18/18 08:15; Admin Dose 325 MG; Start 10/14/18 at 09:00; Status Hold Hydralazine HCl (Apresoline) 100 mg BID PO Last administered on 10/19/18 08:14; Admin Dose 100 MG; Start 10/13/18 at 21:00 Insulin Glargine (Lantus) 8 unit QHS SC Last administered on 10/18/18 21:58; Admin Dose 8 UNIT; Start 10/13/18 at 21:00 IV Flush (NS 3 ml) 3 ml PER PROTOCOL IV ; Start 10/13/18 at 14:00 Ondansetron HCl (Zofran Inj) 4 mg Q6H PRN IV NAUSEA/VOMITING; Start 10/13/18 at 14:00 Nitroglycerin (Nitroglycerin (Sl Tab) 0.4 Mg) 1 tab Q5M PRN SL .CHEST PAIN; Start 10/13/18 at 14:00 Acetaminophen (Tylenol Tab) 650 mg Q6H PRN PO .PAIN 1-3 OR TEMP; Start 10/13/18 at 14:00 Docusate Sodium (Colace) 100 mg Q12H PRN PO .CONSTIPATION; Start 10/13/18 at 14:00 Magnesium Hydroxide (Milk Of Mag) 30 ml DAILY PRN PO .CONSTIPATION; Start 10/13/18 at 14:00 Pantoprazole (Protonix Tab) 40 mg DAILY@06 PO Last administered on 10/19/18at 06:14; Admin Dose 40 MG; Start 10/14/18 at 06:00 Heparin Sodium (Porcine) (Heparin (5000 Units/1ml)) 5,000 unit Q12 SC Last administered on 10/19/18at 08:18; Admin Dose 5,000 UNIT; Start 10/13/18 at 21:00 Miscellaneous Information 1 ea NOTE XX ; Start 10/13/18 at 14:30 Glucose (Glutose) 15 gm Q15M PRN PO DECREASED GLUCOSE; Start 10/13/18 at 14:30 Glucose (Glutose) 22.5 gm Q15M PRN PO DECREASED GLUCOSE; Start 10/13/18 at 14:30 Dextrose (D50w Syringe) 25 ml Q15M PRN IV DECREASED GLUCOSE; Start 10/13/18 at 14:30 Dextrose (D50w Syringe) 50 ml Q15M PRN IV DECREASED GLUCOSE; Start 10/13/18 at 14:30 Glucagon (Glucagen) 1 mg Q15M PRN IM DECREASED GLUCOSE; Start 10/13/18 at 14:30 Glucose (Glutose) 15 gm Q15M PRN BUCCAL DECREASED GLUCOSE; Start 10/13/18 at 14:30 Nicotine (Nicoderm 7 Mg/ 24 Hr) 1 patch DAILY TRANSDERM Last administered on 10/19/18at 08:14; Admin Dose 1 PATCH; Start 10/13/18 at 16:00 Insulin Aspart (Novolog Insulin Pen) NOVOLOG *MILD* ALGORITHM WITH MEALS BEDTIME SC Last administered on 10/19/18at 11:50; Admin Dose 1 UNIT; Start 10/13/18 at 18:00 Calcium Acetate (Phoslo) 667 mg WITH MEALS PO Last administered on 10/19/18at 11:52; Admin Dose 667 MG; Start 10/16/18 at 07:55 Ferric Sodium Gluconate Complex 125 mg/Sodium Chloride 110 ml @ 110 mls/hr DAILY@1300 IVPB Last administered on 10/18/18at 13:00; Admin Dose 110 MLS/HR; Start 10/16/18 at 13:00; Stop 10/20/18 at 13:59 VTE Prophylaxis Risk score (from [facility])>0 risk: 2 SCD applied (from [facility]): No SCD contraindication: other Lines/Catheters IV Catheter Type: Iqbal in Place: No Assessment/Plan Hospital Course Subjective Patient doing well, states legs have improved, shortness of breath has improved Objective Physical exam General: Patient is laying in bed and answers questions appropriately Mentation: Patient is alert and oriented 4, Head: Normocephalic atraumatic Eyes: EOMI, pupils reactive to light Neck: Supple, nontender, midline Respiratory: Coarse to auscultation bilaterally Cardiovascular: regular rate, no obvious murmurs Gastrointestinal: non-tender to palpation, bowel sounds heard. Neurological: Moves all extremities spontaneously Skin: No new skin lesions Assessment/Plan Acute on chronic heart failure - BNP elevated, 4000 on admission - ECHO ordered to assess EF, likely diastolic dysfunction - Diuretics on board - Dr. Gutiérrez, Cardiology consulted for assistance with diuresis and me dication adjustments - Daily weights and I/O - No effusions or pulmonary edema on CXR Lower extremity swelling, bilateral -Secondary to above diastolic heart failure -Venous ultrasound noted -Continue diuretics ALEX on CKD - possible secondary to cardio renal vs diabetic nephropathy - Unsure baseline - Dr. Lieberman, Nephrology consulted for further recommendations - Renal US noted - avoid nephrotoxic agents -Per nephrology we will hold Lasix, will continue to hold for now and observe, patient's creatinine is still creeping up. Anemia -Iron levels noted - no need for transfusions at this time Diabetes Mellitus - A1c ordered - ISS and accuchecks - holding Metformin in setting of ALEX HTN - continue home medications Constipation - bowel regimen LE edema - secondary to CHF Diet - Carb controlled Disposition -Follow-up with nephrology and cardiology recommendations. We will hold off on continued IV diuresis due to acute kidney injury, FRANSICO BERRY Oct 19, 2018 11:58
[2018-10-19] MEDS: SOD FERRIC GLUC COMPLX 125 MG in SOD CHLORIDE 0.9% 100 ML IVPB SCH (13:12)
[2018-10-19 15:34] VITALS: BP 122/62; PULSE 71; RESP 18
[2018-10-19] MEDS: ATORVASTATIN 40 MG TAB PO SCH (20:24)
[2018-10-19] MEDS: INSULIN GLARGINE [LANtus] 3 ML PEN SC SCH (22:11)
[2018-10-20] MEDS: PANTOPRAZOLE (EC) 40 MG TAB PO SCH (05:45)
[2018-10-20 06:58] VITALS: BP 142/71; PULSE 72; RESP 20
[2018-10-20] MEDS: INSULIN ASPART [NOVOLOG] 3 ML PEN SC SCH ×4 (07:38→21:00)
[2018-10-20] MEDS: CALCIUM ACETATE 667 MG CAP PO SCH ×3 (08:05→17:07)
[2018-10-20] MEDS: AMLODIPINE 10 MG TAB PO SCH (08:06)
[2018-10-20] MEDS: NICOTINE (7 MG/24 HR) PATCH TRANSDERM SCH (08:06)
[2018-10-20] MEDS: HEPARIN 5,000 UNIT/1 ML VIAL SC SCH ×2 (08:10→21:19)
[2018-10-20 11:11] VITALS: BP 121/61; PULSE 72; RESP 20
--- NOTE | 2018-10-20 11:13 | CONS ---
Assessment/Plan Assessment/Plan Assessment/Plan (Daily) 1. ALEX on CKD III due to hemodynamics from CHF 2.acute CHF, acute on chronic systolic + diastolic 3. 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 H/o DM II 5. H/o HL 6. h/O HTN 7. Anemia of CKD with Iron saturation 25% Plan: BUN/Cr 74/3.51,other electrolytes stable ECHO showed 55-60 %. Stage II diastolic dysfunction- stop bumex now will monitor off bumex, BNP, Uric acid with AM labs s/p IV iron for iron deficiency Renal US showed No hydronephrosis or nephrolithiasis., Normal size kidneys, normal echogenicity will follow up Consultation Date/Type/Reason Admit Date/Time Oct 13, 2018 at 13:26 Initial Consult Date 10/14/18 Type of Consult NEPHROLOGY Requesting Provider: GLADIS CUNHA MD Date/Time of Note DATE: 10/20/18 TIME: 11:13 Exam/Review of Systems Exam Vitals Vital Signs Date Temp Pulse Resp B/P (MAP) Pulse Ox O2 O2 Flow FiO2 Time Delivery Rate 10/20/18 97.8 72 20 121/61 97 Room Air 11:11 (81) Intake and Output 10/19/18 10/19/18 10/20/18 1515:00 23:00 07:00 IntakeIntake Total 110 ml 300 ml OutputOutput Total 400 ml 500 ml BalanceBalance -290 ml 300 ml -500 ml Exam Constitutional: alert, awake, no acute distress ENMT: nl external ears & nose Respiratory: congested cough, crackles/rales, diminished breath sounds Cardiovascular: regular rate and rhythm Gastrointestinal: soft, non-tender Musculoskeletal: swelling (2-3+ pitting edema ) Skin: nl turgor Lymph: nl lymph node Results Result Diagram: 10/20/18 0757 10/20/18 0757 Results 24hrs Laboratory Tests Test 10/19/18 11:48 10/19/18 17:29 10/19/18 21:50 10/20/18 02:28 Bedside Glucose 168 139 184 137 Test 10/20/18 07:35 10/20/18 07:57 Bedside Glucose 93 White Blood Count 6.1 Red Blood Count 2.56 L Hemoglobin 7.4 L Hematocrit 22.9 L Mean Corpuscular Volume 89.5 Mean Corpuscular 28.9 L Hemoglobin Mean Corpuscular 32.3 Hemoglobin Concent Red Cell Distribution 14.5 Width Platelet Count 160 Mean Platelet Volume 12.3 H Immature Granulocytes % 0.300 Neutrophils % 60.8 Lymphocytes % 20.9 Monocytes % 10.5 Eosinophils % 6.7 Basophils % 0.8 Nucleated Red Blood 0.0 Cells % Immature Granulocytes # 0.020 Neutrophils # 3.7 Lymphocytes # 1.3 Monocytes # 0.6 Eosinophils # 0.4 Basophils # 0.1 Nucleated Red Blood 0.0 Cells # Sodium Level 142 Potassium Level 4.4 Chloride Level 107 Carbon Dioxide Level 26 Anion Gap 9 Blood Urea Nitrogen 74 H Creatinine 3.51 H Est Glomerular Filtrat 19 L Rate mL/min Glucose Level 88 Calcium Level 8.6 Phosphorus Level 4.8 Magnesium Level 2.6 H Medications Medication Current Medications Amlodipine Besylate (Norvasc) 10 mg DAILY PO Last administered on 10/20/18 08:06; Admin Dose 10 MG; Start 10/14/18 at 09:00 Atorvastatin Calcium (Lipitor) 40 mg QHS PO Last administered on 10/19/18 20:24; Admin Dose 40 MG; Start 10/13/18 at 21:00 Carvedilol (Coreg) 25 mg BID PO Last administered on 10/20/18 08:06; Admin Dose 25 MG; Start 10/13/18 at 21:00 Ferrous Sulfate (Ferrous Sulfate (Ec)) 325 mg DAILY PO Last administered on 10/18/18 08:15; Admin Dose 325 MG; Start 10/14/18 at 09:00; Status Hold Hydralazine HCl (Apresoline) 100 mg BID PO Last administered on 10/20/18 08:05; Admin Dose 100 MG; Start 10/13/18 at 21:00 Insulin Glargine (Lantus) 8 unit QHS SC Last administered on 10/19/18 22:11; Admin Dose 8 UNIT; Start 10/13/18 at 21:00 IV Flush (NS 3 ml) 3 ml PER PROTOCOL IV ; Start 10/13/18 at 14:00 Ondansetron HCl (Zofran Inj) 4 mg Q6H PRN IV NAUSEA/VOMITING; Start 10/13/18 at 14:00 Nitroglycerin (Nitroglycerin (Sl Tab) 0.4 Mg) 1 tab Q5M PRN SL .CHEST PAIN; Start 10/13/18 at 14:00 Acetaminophen (Tylenol Tab) 650 mg Q6H PRN PO .PAIN 1-3 OR TEMP; Start 10/13/18 at 14:00 Docusate Sodium (Colace) 100 mg Q12H PRN PO .CONSTIPATION; Start 10/13/18 at 14:00 Magnesium Hydroxide (Milk Of Mag) 30 ml DAILY PRN PO .CONSTIPATION; Start 10/13/18 at 14:00 Pantoprazole (Protonix Tab) 40 mg DAILY@06 PO Last administered on 10/20/18at 05:45; Admin Dose 40 MG; Start 10/14/18 at 06:00 Heparin Sodium (Porcine) (Heparin (5000 Units/1ml)) 5,000 unit Q12 SC Last administered on 10/20/18at 08:10; Admin Dose 5,000 UNIT; Start 10/13/18 at 21:00 Miscellaneous Information 1 ea NOTE XX ; Start 10/13/18 at 14:30 Glucose (Glutose) 15 gm Q15M PRN PO DECREASED GLUCOSE; Start 10/13/18 at 14:30 Glucose (Glutose) 22.5 gm Q15M PRN PO DECREASED GLUCOSE; Start 10/13/18 at 14:30 Dextrose (D50w Syringe) 25 ml Q15M PRN IV DECREASED GLUCOSE; Start 10/13/18 at 14:30 Dextrose (D50w Syringe) 50 ml Q15M PRN IV DECREASED GLUCOSE; Start 10/13/18 at 14:30 Glucagon (Glucagen) 1 mg Q15M PRN IM DECREASED GLUCOSE; Start 10/13/18 at 14:30 Glucose (Glutose) 15 gm Q15M PRN BUCCAL DECREASED GLUCOSE; Start 10/13/18 at 14:30 Nicotine (Nicoderm 7 Mg/ 24 Hr) 1 patch DAILY TRANSDERM Last administered on 10/20/18at 08:06; Admin Dose 1 PATCH; Start 10/13/18 at 16:00 Insulin Aspart (Novolog Insulin Pen) NOVOLOG *MILD* ALGORITHM WITH MEALS BEDTIME SC Last administered on 10/19/18at 22:10; Admin Dose 1 UNIT; Start 10/13/18 at 18:00 Calcium Acetate (Phoslo) 667 mg WITH MEALS PO Last administered on 10/20/18at 08:05; Admin Dose 667 MG; Start 10/16/18 at 07:55 Ferric Sodium Gluconate Complex 125 mg/Sodium Chloride 110 ml @ 110 mls/hr DAILY@1300 IVPB Last administered on 10/19/18at 13:12; Admin Dose 110 MLS/HR; Start 10/16/18 at 13:00; Stop 10/20/18 at 13:59 ANAMARIA SEAMAN MD Oct 20, 2018 11:13
[2018-10-20] MEDS: SOD FERRIC GLUC COMPLX 125 MG in SOD CHLORIDE 0.9% 100 ML IVPB SCH (13:02)
--- NOTE | 2018-10-20 13:13 | PN ---
Date/Time of Note Date/Time of Note DATE: 10/20/18 TIME: 13:12 Objective Vitals Vital Signs Date Temp Pulse Resp B/P (MAP) Pulse Ox O2 O2 Flow FiO2 Time Delivery Rate 10/20/18 97.8 72 20 121/61 97 Room Air 11:11 (81) Intake and Output 10/19/18 10/19/18 10/20/18 1515:00 23:00 07:00 IntakeIntake Total 110 ml 300 ml OutputOutput Total 400 ml 500 ml BalanceBalance -290 ml 300 ml -500 ml Results Result Diagram: 10/20/18 0757 10/20/18 0757 Medications Medications Current Medications Amlodipine Besylate (Norvasc) 10 mg DAILY PO Last administered on 10/20/18at 08:06; Admin Dose 10 MG; Start 10/14/18 at 09:00 Atorvastatin Calcium (Lipitor) 40 mg QHS PO Last administered on 10/19/18at 20:24; Admin Dose 40 MG; Start 10/13/18 at 21:00 Carvedilol (Coreg) 25 mg BID PO Last administered on 10/20/18at 08:06; Admin Dose 25 MG; Start 10/13/18 at 21:00 Ferrous Sulfate (Ferrous Sulfate (Ec)) 325 mg DAILY PO Last administered on 10/18/18at 08:15; Admin Dose 325 MG; Start 10/14/18 at 09:00; Status Hold Hydralazine HCl (Apresoline) 100 mg BID PO Last administered on 10/20/18at 08:05; Admin Dose 100 MG; Start 10/13/18 at 21:00 Insulin Glargine (Lantus) 8 unit QHS SC Last administered on 10/19/18at 22:11; Admin Dose 8 UNIT; Start 10/13/18 at 21:00 IV Flush (NS 3 ml) 3 ml PER PROTOCOL IV ; Start 10/13/18 at 14:00 Ondansetron HCl (Zofran Inj) 4 mg Q6H PRN IV NAUSEA/VOMITING; Start 10/13/18 at 14:00 Nitroglycerin (Nitroglycerin (Sl Tab) 0.4 Mg) 1 tab Q5M PRN SL .CHEST PAIN; Start 10/13/18 at 14:00 Acetaminophen (Tylenol Tab) 650 mg Q6H PRN PO .PAIN 1-3 OR TEMP; Start 10/13/18 at 14:00 Docusate Sodium (Colace) 100 mg Q12H PRN PO .CONSTIPATION; Start 10/13/18 at 14:00 Magnesium Hydroxide (Milk Of Mag) 30 ml DAILY PRN PO .CONSTIPATION; Start 10/13/18 at 14:00 Pantoprazole (Protonix Tab) 40 mg DAILY@06 PO Last administered on 10/20/18at 05:45; Admin Dose 40 MG; Start 10/14/18 at 06:00 Heparin Sodium (Porcine) (Heparin (5000 Units/1ml)) 5,000 unit Q12 SC Last administered on 10/20/18at 08:10; Admin Dose 5,000 UNIT; Start 10/13/18 at 21:00 Miscellaneous Information 1 ea NOTE XX ; Start 10/13/18 at 14:30 Glucose (Glutose) 15 gm Q15M PRN PO DECREASED GLUCOSE; Start 10/13/18 at 14:30 Glucose (Glutose) 22.5 gm Q15M PRN PO DECREASED GLUCOSE; Start 10/13/18 at 14:30 Dextrose (D50w Syringe) 25 ml Q15M PRN IV DECREASED GLUCOSE; Start 10/13/18 at 14:30 Dextrose (D50w Syringe) 50 ml Q15M PRN IV DECREASED GLUCOSE; Start 10/13/18 at 14:30 Glucagon (Glucagen) 1 mg Q15M PRN IM DECREASED GLUCOSE; Start 10/13/18 at 14:30 Glucose (Glutose) 15 gm Q15M PRN BUCCAL DECREASED GLUCOSE; Start 10/13/18 at 14:30 Nicotine (Nicoderm 7 Mg/ 24 Hr) 1 patch DAILY TRANSDERM Last administered on 10/20/18at 08:06; Admin Dose 1 PATCH; Start 10/13/18 at 16:00 Insulin Aspart (Novolog Insulin Pen) NOVOLOG *MILD* ALGORITHM WITH MEALS BEDTIME SC Last administered on 10/20/18at 12:14; Admin Dose 1 UNIT; Start 10/13/18 at 18:00 Calcium Acetate (Phoslo) 667 mg WITH MEALS PO Last administered on 10/20/18at 12:02; Admin Dose 667 MG; Start 10/16/18 at 07:55 Ferric Sodium Gluconate Complex 125 mg/Sodium Chloride 110 ml @ 110 mls/hr DAILY@1300 IVPB Last administered on 10/20/18at 13:02; Admin Dose 110 MLS/HR; Start 10/16/18 at 13:00; Stop 10/20/18 at 13:59 VTE Prophylaxis Risk score (from Ns)>0 risk: 3 SCD applied (from [facility]): No SCD contraindication: other Lines/Catheters IV Catheter Type: Iqbal in Place: No Assessment/Plan Hospital Course Subjective Patient doing well, however feet are beginning to swell up again Objective Physical exam General: Patient is laying in bed and answers questions appropriately Mentation: Patient is alert and oriented 4, Head: Normocephalic atraumatic Eyes: EOMI, pupils reactive to light Neck: Supple, nontender, midline Respiratory: Coarse to auscultation bilaterally Cardiovascular: regular rate, no obvious murmurs Gastrointestinal: non-tender to palpation, bowel sounds heard. Neurological: Moves all extremities spontaneously Skin: No new skin lesions Assessment/Plan Acute on chronic heart failure - BNP elevated, 4000 on admission - ECHO ordered to assess EF, likely diastolic dysfunction - Diuretics on board - Dr. Gutiérrez, Cardiology and Dr. Lieberman, nephrology consulted for assistance with diuresis and medication adjustments - Daily weights and I/O - No effusions or pulmonary edema on CXR Lower extremity swelling, bilateral -Secondary to above diastolic heart failure -Venous ultrasound noted -Continue diuretics as tolerated, currently holding diuretics per nephrology due to acute kidney injury ALEX on CKD - possible secondary to cardio renal vs diabetic nephropathy - Unsure baseline - Dr. Lieberman, Nephrology consulted for further recommendations - Renal US noted - avoid nephrotoxic agents -Per nephrology we will hold Lasix, will continue to hold for now and observe, patient's creatinine is still creeping up. Although appears to be stabilizing Anemia -Iron levels noted - no need for transfusions at this time Diabetes Mellitus - A1c ordered - ISS and accuchecks - holding Metformin in setting of ALEX HTN - continue home medications Constipation - bowel regimen LE edema - secondary to CHF Diet - Carb controlled Disposition -Follow-up with nephrology and cardiology recommendations. We will hold off on continued IV diuresis due to acute kidney injury, FRANSICO BERRY Oct 20, 2018 13:13
[2018-10-20 15:14] VITALS: BP 123/66; PULSE 69; RESP 20
[2018-10-20 20:00] VITALS: BP 135/75; PULSE 67; RESP 20
[2018-10-20] MEDS: ATORVASTATIN 40 MG TAB PO SCH (21:08)
[2018-10-20] MEDS: INSULIN GLARGINE [LANtus] 3 ML PEN SC SCH (21:18)
[2018-10-21 00:05] VITALS: BP 121/61; PULSE 70; RESP 18
[2018-10-21 04:27] VITALS: BP 135/62; PULSE 65; RESP 18
[2018-10-21] MEDS: PANTOPRAZOLE (EC) 40 MG TAB PO SCH (06:21)
[2018-10-21 07:30] VITALS: BP 136/68; PULSE 71; RESP 18
[2018-10-21] MEDS: INSULIN ASPART [NOVOLOG] 3 ML PEN SC SCH ×4 (07:55→21:00)
[2018-10-21] MEDS: CALCIUM ACETATE 667 MG CAP PO SCH ×3 (08:10→17:30)
[2018-10-21] MEDS: NICOTINE (7 MG/24 HR) PATCH TRANSDERM SCH (08:11)
[2018-10-21] MEDS: AMLODIPINE 10 MG TAB PO SCH (08:11)
[2018-10-21] MEDS: HEPARIN 5,000 UNIT/1 ML VIAL SC SCH ×2 (08:17→20:23)
--- NOTE | 2018-10-21 11:03 | CONS ---
Assessment/Plan Assessment/Plan Hospital Course (Demo Recall) Acute on chronic diastolic heart failure: EF preserved, grade 2 diastolic dysfunction. Improved with diuresis. Then diuretics held due to rising Cr, now mildly decompensated again on exam HTN CKD: unknown baseline. Worse with diuresis, now coming down -restart bumex 1mg PO BID -coreg 25mg BID -amlodipine 10mg -hydralazine 100mg BID Consultation Date/Type/Reason Admit Date/Time Oct 13, 2018 at 13:26 Initial Consult Date 10/14/18 Type of Consult Cardiology Requesting Provider: GLADIS CUNHA MD Date/Time of Note DATE: 10/21/18 TIME: 11:00 24 HR Interval Summary Free Text/Dictation Diuretics held over the weekend due to rising Cr. Now stabilizing. 8 beats of NSVT this am Exam/Review of Systems Vital Signs Vitals Vital Signs Date Temp Pulse Resp B/P (MAP) Pulse Ox O2 O2 Flow FiO2 Time Delivery Rate 10/21/18 98.0 71 18 136/68 96 Room Air 07:30 (90) Intake and Output 10/20/18 10/20/18 10/21/18 1515:00 23:00 07:00 IntakeIntake Total 720 ml 240 ml OutputOutput Total 500 ml BalanceBalance 220 ml 240 ml Exam Constitutional: alert, oriented Psych: no complaints, nl mood/affect Head: normocephalic, atraumatic Neck: jvd (9-10cm) Respiratory: crackles/rales (bases), diminished breath sounds; No clear to auscultation Cardiovascular: regular rate and rhythm, edema (1+) Gastrointestinal: soft, non-tender; No distended Neurological: nl mental status, nl speech Labs Result Diagram: 10/21/1863210/21/18632 Results 24hrs Laboratory Tests Test 10/20/18 11:58 10/20/18 17:07 10/20/18 21:06 10/21/18 06:33 Bedside Glucose 159 139 126 White Blood Count 5.8 Red Blood Count 2.49 L Hemoglobin 7.3 L Hematocrit 23.0 L Mean Corpuscular Volume 92.4 Mean Corpuscular 29.3 Hemoglobin Mean Corpuscular 31.7 L Hemoglobin Concent Red Cell Distribution 14.5 Width Platelet Count 172 Mean Platelet Volume 12.3 H Immature Granulocytes % 0.300 Neutrophils % 59.8 Lymphocytes % 21.0 Monocytes % 12.2 H Eosinophils % 5.8 Basophils % 0.9 Nucleated Red Blood 0.0 Cells % Immature Granulocytes # 0.020 Neutrophils # 3.5 Lymphocytes # 1.2 Monocytes # 0.7 Eosinophils # 0.3 Basophils # 0.1 Nucleated Red Blood 0.0 Cells # Sodium Level 142 Potassium Level 4.5 Chloride Level 108 Carbon Dioxide Level 27 Anion Gap 7 Blood Urea Nitrogen 77 H Creatinine 3.36 H Est Glomerular Filtrat 20 L Rate mL/min Glucose Level 84 Uric Acid 9.3 H Calcium Level 8.7 Phosphorus Level 4.7 Magnesium Level 2.7 H B-Type Natriuretic 4600 H Peptide Test 10/21/18 08:09 Bedside Glucose 102 Medications Medications Current Medications Amlodipine Besylate (Norvasc) 10 mg DAILY PO Last administered on 10/21/18 08:11; Admin Dose 10 MG; Start 10/14/18 at 09:00 Atorvastatin Calcium (Lipitor) 40 mg QHS PO Last administered on 10/20/18 21:08; Admin Dose 40 MG; Start 10/13/18 at 21:00 Carvedilol (Coreg) 25 mg BID PO Last administered on 10/21/18 08:11; Admin Dose 25 MG; Start 10/13/18 at 21:00 Ferrous Sulfate (Ferrous Sulfate (Ec)) 325 mg DAILY PO Last administered on 10/18/18 08:15; Admin Dose 325 MG; Start 10/14/18 at 09:00; Status Hold Hydralazine HCl (Apresoline) 100 mg BID PO Last administered on 10/21/18 08:10; Admin Dose 100 MG; Start 10/13/18 at 21:00 Insulin Glargine (Lantus) 8 unit QHS SC Last administered on 10/20/18 21:18; Admin Dose 8 UNIT; Start 10/13/18 at 21:00 IV Flush (NS 3 ml) 3 ml PER PROTOCOL IV ; Start 10/13/18 at 14:00 Ondansetron HCl (Zofran Inj) 4 mg Q6H PRN IV NAUSEA/VOMITING; Start 10/13/18 at 14:00 Nitroglycerin (Nitroglycerin (Sl Tab) 0.4 Mg) 1 tab Q5M PRN SL .CHEST PAIN; Start 10/13/18 at 14:00 Acetaminophen (Tylenol Tab) 650 mg Q6H PRN PO .PAIN 1-3 OR TEMP; Start 10/13/18 at 14:00 Docusate Sodium (Colace) 100 mg Q12H PRN PO .CONSTIPATION; Start 10/13/18 at 14:00 Magnesium Hydroxide (Milk Of Mag) 30 ml DAILY PRN PO .CONSTIPATION; Start 10/13/18 at 14:00 Pantoprazole (Protonix Tab) 40 mg DAILY@06 PO Last administered on 10/21/18at 06:21; Admin Dose 40 MG; Start 10/14/18 at 06:00 Heparin Sodium (Porcine) (Heparin (5000 Units/1ml)) 5,000 unit Q12 SC Last administered on 10/21/18at 08:17; Admin Dose 5,000 UNIT; Start 10/13/18 at 21:00 Miscellaneous Information 1 ea NOTE XX ; Start 10/13/18 at 14:30 Glucose (Glutose) 15 gm Q15M PRN PO DECREASED GLUCOSE; Start 10/13/18 at 14:30 Glucose (Glutose) 22.5 gm Q15M PRN PO DECREASED GLUCOSE; Start 10/13/18 at 14:30 Dextrose (D50w Syringe) 25 ml Q15M PRN IV DECREASED GLUCOSE; Start 10/13/18 at 14:30 Dextrose (D50w Syringe) 50 ml Q15M PRN IV DECREASED GLUCOSE; Start 10/13/18 at 14:30 Glucagon (Glucagen) 1 mg Q15M PRN IM DECREASED GLUCOSE; Start 10/13/18 at 14:30 Glucose (Glutose) 15 gm Q15M PRN BUCCAL DECREASED GLUCOSE; Start 10/13/18 at 14:30 Nicotine (Nicoderm 7 Mg/ 24 Hr) 1 patch DAILY TRANSDERM Last administered on 10/21/18at 08:11; Admin Dose 1 PATCH; Start 10/13/18 at 16:00 Insulin Aspart (Novolog Insulin Pen) NOVOLOG *MILD* ALGORITHM WITH MEALS BEDTIME SC Last administered on 10/20/18at 12:14; Admin Dose 1 UNIT; Start 10/13/18 at 18:00 Calcium Acetate (Phoslo) 667 mg WITH MEALS PO Last administered on 10/21/18at 08:10; Admin Dose 667 MG; Start 7/3/19 at 07:55 BRADEN GARCIA Oct 21, 2018 11:03
[2018-10-21] MEDS: BUMETANIDE 1 MG TAB PO SCH ×2 (11:44→17:29)
--- NOTE | 2018-10-21 12:09 | CONS ---
Assessment/Plan Assessment/Plan Assessment/Plan (Daily) 1. ALEX on CKD III due to hemodynamics from CHF 2.acute CHF, acute on chronic systolic + diastolic 3. 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 H/o DM II 5. H/o HL 6. h/O HTN 7. Anemia of CKD with Iron saturation 25% Plan: BUN/Cr 77/3.36,other electrolytes stable ECHO showed 55-60 %. Stage II diastolic dysfunction- stopped bumed, due to rising Cr, CXR today to assess pulmonary congestion s/p IV iron for iron deficiency Renal US showed No hydronephrosis or nephrolithiasis., Normal size kidneys, normal echogenicity will follow up Consultation Date/Type/Reason Admit Date/Time Oct 13, 2018 at 13:26 Initial Consult Date 10/14/18 Type of Consult NEPHROLOGY Requesting Provider: GLADIS CUNHA MD Date/Time of Note DATE: 10/21/18 TIME: 12:08 24 HR Interval Summary Free Text/Dictation Bumex had stopped due to rising Cr, Bp stable ,on RA ,no SOB Exam/Review of Systems Exam Vitals Vital Signs Date Temp Pulse Resp B/P (MAP) Pulse Ox O2 O2 Flow FiO2 Time Delivery Rate 10/21/18 98.0 71 18 136/68 96 Room Air 07:30 (90) Intake and Output 10/20/18 10/20/18 10/21/18 1515:00 23:00 07:00 IntakeIntake Total 720 ml 240 ml OutputOutput Total 500 ml BalanceBalance 220 ml 240 ml Exam Constitutional: alert, awake, no acute distress ENMT: nl external ears & nose Respiratory: congested cough, crackles/rales, diminished breath sounds Cardiovascular: regular rate and rhythm Gastrointestinal: soft, non-tender Musculoskeletal: swelling (2-3+ pitting edema ) Skin: nl turgor Lymph: nl lymph node Results Result Diagram: 10/21/18 0633 10/21/18 0633 Results 24hrs Laboratory Tests Test 10/20/18 17:07 10/20/18 21:06 10/21/18 06:33 10/21/18 08:09 Bedside Glucose 139 126 102 White Blood Count 5.8 Red Blood Count 2.49 L Hemoglobin 7.3 L Hematocrit 23.0 L Mean Corpuscular Volume 92.4 Mean Corpuscular 29.3 Hemoglobin Mean Corpuscular 31.7 L Hemoglobin Concent Red Cell Distribution 14.5 Width Platelet Count 172 Mean Platelet Volume 12.3 H Immature Granulocytes % 0.300 Neutrophils % 59.8 Lymphocytes % 21.0 Monocytes % 12.2 H Eosinophils % 5.8 Basophils % 0.9 Nucleated Red Blood 0.0 Cells % Immature Granulocytes # 0.020 Neutrophils # 3.5 Lymphocytes # 1.2 Monocytes # 0.7 Eosinophils # 0.3 Basophils # 0.1 Nucleated Red Blood 0.0 Cells # Sodium Level 142 Potassium Level 4.5 Chloride Level 108 Carbon Dioxide Level 27 Anion Gap 7 Blood Urea Nitrogen 77 H Creatinine 3.36 H Est Glomerular Filtrat 20 L Rate mL/min Glucose Level 84 Uric Acid 9.3 H Calcium Level 8.7 Phosphorus Level 4.7 Magnesium Level 2.7 H B-Type Natriuretic 4600 H Peptide Test 10/21/18 11:43 Bedside Glucose 139 Medications Medication Current Medications Amlodipine Besylate (Norvasc) 10 mg DAILY PO Last administered on 10/21/18 08:11; Admin Dose 10 MG; Start 10/14/18 at 09:00 Atorvastatin Calcium (Lipitor) 40 mg QHS PO Last administered on 10/20/18 21:08; Admin Dose 40 MG; Start 10/13/18 at 21:00 Carvedilol (Coreg) 25 mg BID PO Last administered on 10/21/18 08:11; Admin Dose 25 MG; Start 10/13/18 at 21:00 Ferrous Sulfate (Ferrous Sulfate (Ec)) 325 mg DAILY PO Last administered on 08:15; Admin Dose 325 MG; Start 10/14/18 at 09:00; Status Hold Hydralazine HCl (Apresoline) 100 mg BID PO Last administered on 10/21/18 08:10; Admin Dose 100 MG; Start 10/13/18 at 21:00 Insulin Glargine (Lantus) 8 unit QHS SC Last administered on 10/20/18 21:18; Admin Dose 8 UNIT; Start 10/13/18 at 21:00 IV Flush (NS 3 ml) 3 ml PER PROTOCOL IV ; Start 10/13/18 at 14:00 Ondansetron HCl (Zofran Inj) 4 mg Q6H PRN IV NAUSEA/VOMITING; Start 10/13/18 at 14:00 Nitroglycerin (Nitroglycerin (Sl Tab) 0.4 Mg) 1 tab Q5M PRN SL .CHEST PAIN; Start 10/13/18 at 14:00 Acetaminophen (Tylenol Tab) 650 mg Q6H PRN PO .PAIN 1-3 OR TEMP; Start 10/13/18 at 14:00 Docusate Sodium (Colace) 100 mg Q12H PRN PO .CONSTIPATION; Start 10/13/18 at 14:00 Magnesium Hydroxide (Milk Of Mag) 30 ml DAILY PRN PO .CONSTIPATION; Start 10/13/18 at 14:00 Pantoprazole (Protonix Tab) 40 mg DAILY@06 PO Last administered on 10/21/18at 06:21; Admin Dose 40 MG; Start 10/14/18 at 06:00 Heparin Sodium (Porcine) (Heparin (5000 Units/1ml)) 5,000 unit Q12 SC Last administered on 10/21/18at 08:17; Admin Dose 5,000 UNIT; Start 10/13/18 at 21:00 Miscellaneous Information 1 ea NOTE XX ; Start 10/13/18 at 14:30 Glucose (Glutose) 15 gm Q15M PRN PO DECREASED GLUCOSE; Start 10/13/18 at 14:30 Glucose (Glutose) 22.5 gm Q15M PRN PO DECREASED GLUCOSE; Start 10/13/18 at 14:30 Dextrose (D50w Syringe) 25 ml Q15M PRN IV DECREASED GLUCOSE; Start 10/13/18 at 14:30 Dextrose (D50w Syringe) 50 ml Q15M PRN IV DECREASED GLUCOSE; Start 10/13/18 at 14:30 Glucagon (Glucagen) 1 mg Q15M PRN IM DECREASED GLUCOSE; Start 10/13/18 at 14:30 Glucose (Glutose) 15 gm Q15M PRN BUCCAL DECREASED GLUCOSE; Start 10/13/18 at 14:30 Nicotine (Nicoderm 7 Mg/ 24 Hr) 1 patch DAILY TRANSDERM Last administered on 10/21/18at 08:11; Admin Dose 1 PATCH; Start 10/13/18 at 16:00 Insulin Aspart (Novolog Insulin Pen) NOVOLOG *MILD* ALGORITHM WITH MEALS BEDTIME SC Last administered on 10/20/18at 12:14; Admin Dose 1 UNIT; Start 10/13/18 at 18:00 Calcium Acetate (Phoslo) 667 mg WITH MEALS PO Last administered on 10/21/18at 11:44; Admin Dose 667 MG; Start 10/16/18 at 07:55 Bumetanide (Bumex) 1 mg BID DIURETICS PO Last administered on 10/21/18at 11:44; Admin Dose 1 MG; Start 10/21/18 at 11:00 ANAMARIA SEAMAN MD Oct 21, 2018 12:09
[2018-10-21 12:50] VITALS: BP 115/58; PULSE 67; RESP 18
[2018-10-21 16:15] VITALS: BP 118/62; PULSE 73; RESP 18
--- NOTE | 2018-10-21 17:05 | PN ---
Date/Time of Note Date/Time of Note DATE: 10/21/18 TIME: 17:00 Assessment/Plan VTE Prophylaxis Risk score (from [facility])>0 risk: 2 SCD applied (from [facility]): No SCD contraindicated: other Pharmacological prophylaxis: NA/contraindicated Pharm contraindication: renal impairment Lines/Catheters IV C[facility]ter Type [facility]from [facility] Saline Lock Urinary Cath still in place: No Assessment/Plan Assessment/Plan 1. Acute on chronic heart failure - Cardiology on board and recommending restart diuretics - Nephrology consultation appreciated and assisting with diuretic management - ECHO results noted - continue monitoring I/O and daily weights 2. Lower extremity swelling, bilateral- resolving - improving with diuresis - Venous ultrasound noted 3. ALEX on CKD - possible secondary to cardio renal vs diabetic nephropathy - Unsure baseline - Nephrology consultation appreciated - Renal US noted - avoid nephrotoxic agents 4. Anemia - Iron levels noted - no need for transfusions at this time - most likely secondary to renal failure 5. Diabetes Mellitus - A1c noted - ISS and accuchecks - holding Metformin in setting of ALEX 6. HTN - continue home medications 7. Constipation - bowel regimen 8. Disposition - Bumex restarted given elevated BNP. Will monitor renal function Result Diagram: 10/21/18 0633 10/21/18 0633 Results 24hrs Laboratory Tests Test 10/20/18 17:07 10/20/18 21:06 10/21/18 06:33 10/21/18 08:09 Bedside Glucose 139 126 102 White Blood Count 5.8 Red Blood Count 2.49 L Hemoglobin 7.3 L Hematocrit 23.0 L Mean Corpuscular Volume 92.4 Mean Corpuscular 29.3 Hemoglobin Mean Corpuscular 31.7 L Hemoglobin Concent Red Cell Distribution 14.5 Width Platelet Count 172 Mean Platelet Volume 12.3 H Immature Granulocytes % 0.300 Neutrophils % 59.8 Lymphocytes % 21.0 Monocytes % 12.2 H Eosinophils % 5.8 Basophils % 0.9 Nucleated Red Blood 0.0 Cells % Immature Granulocytes # 0.020 Neutrophils # 3.5 Lymphocytes # 1.2 Monocytes # 0.7 Eosinophils # 0.3 Basophils # 0.1 Nucleated Red Blood 0.0 Cells # Sodium Level 142 Potassium Level 4.5 Chloride Level 108 Carbon Dioxide Level 27 Anion Gap 7 Blood Urea Nitrogen 77 H Creatinine 3.36 H Est Glomerular Filtrat 20 L Rate mL/min Glucose Level 84 Uric Acid 9.3 H Calcium Level 8.7 Phosphorus Level 4.7 Magnesium Level 2.7 H B-Type Natriuretic 4600 H Peptide Test 10/21/18 11:43 Bedside Glucose 139 Subjective 24 Hr Interval Summary Free Text/Dictation Patient states he's feeling 60-70% better since admission. States swelling of LE has significantly improved. Exam/Review of Systems Exam Vitals Vital Signs Date Temp Pulse Resp B/P (MAP) Pulse Ox O2 O2 Flow FiO2 Time Delivery Rate 10/21/18 98.0 73 18 118/62 98 16:15 (80) 10/21/18 Room Air 07:30 Intake and Output 10/20/18 10/20/18 10/21/18 1515:00 23:00 07:00 IntakeIntake Total 720 ml 240 ml OutputOutput Total 500 ml BalanceBalance 220 ml 240 ml Exam General: Patient is laying in bed and answers questions appropriately. no acute distress Neck: Supple, nontender, midline Respiratory: Coarse to auscultation bilaterally. no wheezing Cardiovascular: regular rate and rhythm, no obvious murmurs Gastrointestinal: soft, non-tender to palpation, nondistended, bowel sounds heard. ext: Moves all extremities spontaneously. pedal edema bilaterally. no cyanosis or clubbing Skin: No new skin lesions Results Results 24hrs Laboratory Tests Test 10/20/18 17:07 10/20/18 21:06 10/21/18 06:33 10/21/18 08:09 Bedside Glucose 139 126 102 White Blood Count 5.8 Red Blood Count 2.49 L Hemoglobin 7.3 L Hematocrit 23.0 L Mean Corpuscular Volume 92.4 Mean Corpuscular 29.3 Hemoglobin Mean Corpuscular 31.7 L Hemoglobin Concent Red Cell Distribution 14.5 Width Platelet Count 172 Mean Platelet Volume 12.3 H Immature Granulocytes % 0.300 Neutrophils % 59.8 Lymphocytes % 21.0 Monocytes % 12.2 H Eosinophils % 5.8 Basophils % 0.9 Nucleated Red Blood 0.0 Cells % Immature Granulocytes # 0.020 Neutrophils # 3.5 Lymphocytes # 1.2 Monocytes # 0.7 Eosinophils # 0.3 Basophils # 0.1 Nucleated Red Blood 0.0 Cells # Sodium Level 142 Potassium Level 4.5 Chloride Level 108 Carbon Dioxide Level 27 Anion Gap 7 Blood Urea Nitrogen 77 H Creatinine 3.36 H Est Glomerular Filtrat 20 L Rate mL/min Glucose Level 84 Uric Acid 9.3 H Calcium Level 8.7 Phosphorus Level 4.7 Magnesium Level 2.7 H B-Type Natriuretic 4600 H Peptide Test 10/21/18 11:43 Bedside Glucose 139 Medications Medication Current Medications Amlodipine Besylate (Norvasc) 10 mg DAILY PO Last administered on 10/21/18 08:11; Admin Dose 10 MG; Start 10/14/18 at 09:00 Atorvastatin Calcium (Lipitor) 40 mg QHS PO Last administered on 10/20/18 21:08; Admin Dose 40 MG; Start 10/13/18 at 21:00 Carvedilol (Coreg) 25 mg BID PO Last administered on 10/21/18 08:11; Admin Dose 25 MG; Start 10/13/18 at 21:00 Ferrous Sulfate (Ferrous Sulfate (Ec)) 325 mg DAILY PO Last administered on 10/18/18 08:15; Admin Dose 325 MG; Start 10/14/18 at 09:00; Status Hold Hydralazine HCl (Apresoline) 100 mg BID PO Last administered on 10/21/18 08:10; Admin Dose 100 MG; Start 10/13/18 at 21:00 Insulin Glargine (Lantus) 8 unit QHS SC Last administered on 10/20/18 21:18; Admin Dose 8 UNIT; Start 10/13/18 at 21:00 IV Flush (NS 3 ml) 3 ml PER PROTOCOL IV ; Start 10/13/18 at 14:00 Ondansetron HCl (Zofran Inj) 4 mg Q6H PRN IV NAUSEA/VOMITING; Start 10/13/18 at 14:00 Nitroglycerin (Nitroglycerin (Sl Tab) 0.4 Mg) 1 tab Q5M PRN SL .CHEST PAIN; Start 10/13/18 at 14:00 Acetaminophen (Tylenol Tab) 650 mg Q6H PRN PO .PAIN 1-3 OR TEMP; Start 10/13/18 at 14:00 Docusate Sodium (Colace) 100 mg Q12H PRN PO .CONSTIPATION; Start 10/13/18 at 14:00 Magnesium Hydroxide (Milk Of Mag) 30 ml DAILY PRN PO .CONSTIPATION; Start 10/13/18 at 14:00 Pantoprazole (Protonix Tab) 40 mg DAILY@06 PO Last administered on 10/21/18 06 :21; Admin Dose 40 MG; Start 10/14/18 at 06:00 Heparin Sodium (Porcine) (Heparin (5000 Units/1ml)) 5,000 unit Q12 SC Last administered on 10/21/18 08:17; Admin Dose 5,000 UNIT; Start 10/13/18 at 21:00 Miscellaneous Information 1 ea NOTE XX ; Start 10/13/18 at 14:30 Glucose (Glutose) 15 gm Q15M PRN PO DECREASED GLUCOSE; Start 10/13/18 at 14:30 Glucose (Glutose) 22.5 gm Q15M PRN PO DECREASED GLUCOSE; Start 10/13/18 at 14:30 Dextrose (D50w Syringe) 25 ml Q15M PRN IV DECREASED GLUCOSE; Start 10/13/18 at 14:30 Dextrose (D50w Syringe) 50 ml Q15M PRN IV DECREASED GLUCOSE; Start 10/13/18 at 14:30 Glucagon (Glucagen) 1 mg Q15M PRN IM DECREASED GLUCOSE; Start 10/13/18 at 14:30 Glucose (Glutose) 15 gm Q15M PRN BUCCAL DECREASED GLUCOSE; Start 10/13/18 at 14:30 Nicotine (Nicoderm 7 Mg/ 24 Hr) 1 patch DAILY TRANSDERM Last administered on 10/21/18 08:11; Admin Dose 1 PATCH; Start 10/13/18 at 16:00 Insulin Aspart (Novolog Insulin Pen) NOVOLOG *MILD* ALGORITHM WITH MEALS BEDTIME SC Last administered on 10/20/18 12:14; Admin Dose 1 UNIT; Start 10/13/18 at 18:00 Calcium Acetate (Phoslo) 667 mg WITH MEALS PO Last administered on 10/21/18 11:44; Admin Dose 667 MG; Start 10/16/18 at 07:55 Bumetanide (Bumex) 1 mg BID DIURETICS PO Last administered on 10/21/18 11:44; Admin Dose 1 MG; Start 10/21/18 at 11:00 GLADIS CUNHA MD Oct 21, 2018 17:05
[2018-10-21 20:12] VITALS: BP 128/70; PULSE 64; RESP 18
[2018-10-21] MEDS: ATORVASTATIN 40 MG TAB PO SCH (20:12)
[2018-10-21] MEDS: INSULIN GLARGINE [LANtus] 3 ML PEN SC SCH (21:36)
[2018-10-22 00:24] VITALS: BP 114/63; PULSE 69; RESP 18
[2018-10-22 03:55] VITALS: BP 131/63; PULSE 70; RESP 18
[2018-10-22] MEDS: PANTOPRAZOLE (EC) 40 MG TAB PO SCH (06:20)
[2018-10-22] MEDS: BUMETANIDE 1 MG TAB PO SCH (06:20)
[2018-10-22 07:26] VITALS: BP 120/58; PULSE 74; RESP 22
[2018-10-22] MEDS: INSULIN ASPART [NOVOLOG] 3 ML PEN SC SCH ×4 (07:50→21:36)
[2018-10-22] MEDS: CALCIUM ACETATE 667 MG CAP PO SCH ×3 (07:57→17:47)
[2018-10-22] MEDS: FUROSEMIDE 20 MG INJ IV SCH ×2 (08:30→17:47)
[2018-10-22] MEDS: AMLODIPINE 10 MG TAB PO SCH (08:37)
[2018-10-22] MEDS: NICOTINE (7 MG/24 HR) PATCH TRANSDERM SCH (08:39)
[2018-10-22] MEDS: HEPARIN 5,000 UNIT/1 ML VIAL SC SCH ×2 (08:44→21:36)
--- NOTE | 2018-10-22 10:40 | PN ---
Date/Time of Note Date/Time of Note DATE: 10/22/18 TIME: 10:40 Assessment/Plan VTE Prophylaxis Risk score (from Ns)>0 risk: 3 [place]CD applied [place] [facility] [place] SCD contraindicated: other Pharmacological prophylaxis: heparin Lines/Catheters IV Catheter Type (from [facility]): [facility] Urinary Cath still in place: No Assessment/Plan Assessment/Plan 1. Acute on chronic heart failure - Cardiology and Nephrology on board for diuretic management. Patient feels as if his leg swelling has improved 60-70% and determined to continue needed treatment and dietary restrictions to prevent future admissions - ECHO results noted - continue monitoring I/O and daily weights 2. Lower extremity swelling, bilateral- improving - improving with diuresis - Venous ultrasound noted 3. ALEX on CKD - possible secondary to cardio renal vs diabetic nephropathy - Unsure baseline - Nephrology consultation appreciated - Renal US noted - avoid nephrotoxic agents 4. Anemia - Iron levels noted - no need for transfusions at this time - most likely secondary to renal failure 5. Diabetes Mellitus - A1c noted - ISS and accuchecks - holding Metformin in setting of ALEX 6. HTN - continue home medications 7. Constipation - bowel regimen 8. Disposition - Once renal function stabilizes and cleared from Nephrology and Cardiology standpoint, will d/c home Result Diagram: 10/22/18 0645 10/22/18 0645 Results 24hrs Laboratory Tests Test 10/21/18 11:43 10/21/18 17:30 10/21/18 20:11 10/22/18 06:45 Bedside Glucose 139 139 158 White Blood Count 6.2 Red Blood Count 2.59 L Hemoglobin 7.5 L Hematocrit 23.2 L Mean Corpuscular 89.6 Volume Mean Corpuscular 29.0 Hemoglobin Mean Corpuscular 32.3 Hemoglobin Concent Red Cell Distribution 14.4 Width Platelet Count 168 Mean Platelet Volume 11.9 H Immature Granulocytes 0.300 % Neutrophils % 61.8 Lymphocytes % 19.7 Monocytes % 10.7 Eosinophils % 6.7 Basophils % 0.8 Nucleated Red Blood 0.0 Cells % Immature Granulocytes 0.020 # Neutrophils # 3.8 Lymphocytes # 1.2 Monocytes # 0.7 Eosinophils # 0.4 Basophils # 0.1 Nucleated Red Blood 0.0 Cells # Sodium Level 140 Potassium Level 4.4 Chloride Level 107 Carbon Dioxide Level 26 Anion Gap 7 Blood Urea Nitrogen 77 H Creatinine 3.41 H Glucose Level 92 Calcium Level 9.0 Phosphorus Level 4.7 Magnesium Level 2.5 Albumin 3.5 Test 10/22/18 07:35 10/22/18 09:58 Bedside Glucose 149 Lab Scanned Report REFERENCE LAB Subjective 24 Hr Interval Summary Free Text/Dictation Patient is doing well and states he feels as if his legs are 60% better. Very determined to continue any treatment needed to prevent hospital readmission. Exam/Review of Systems Exam Vitals Vital Signs Date Temp Pulse Resp B/P (MAP) Pulse Ox O2 O2 Flow FiO2 Time Delivery Rate 10/22/18 98.0 74 22 120/58 96 Room Air 07:26 (78) Intake and Output 10/21/18 10/21/18 10/22/18 1515:00 23:00 07:00 IntakeIntake Total 240 ml 300 ml OutputOutput Total 1000 ml 1000 ml BalanceBalance -760 ml -700 ml Exam General: Patient is laying in bed and answers questions appropriately. no acute distress Neck: Supple, nontender, midline Respiratory: Crackles at bases. no wheezing Cardiovascular: regular rate and rhythm, no obvious murmurs Gastrointestinal: soft, non-tender to palpation, nondistended, bowel sounds heard. ext: Moves all extremities spontaneously. pedal edema bilaterally. no cyanosis or clubbing Skin: No new skin lesions Results Results 24hrs Laboratory Tests Test 10/21/18 11:43 10/21/18 17:30 10/21/18 20:11 10/22/18 06:45 Bedside Glucose 139 139 158 White Blood Count 6.2 Red Blood Count 2.59 L Hemoglobin 7.5 L Hematocrit 23.2 L Mean Corpuscular 89.6 Volume Mean Corpuscular 29.0 Hemoglobin Mean Corpuscular 32.3 Hemoglobin Concent Red Cell Distribution 14.4 Width Platelet Count 168 Mean Platelet Volume 11.9 H Immature Granulocytes 0.300 % Neutrophils % 61.8 Lymphocytes % 19.7 Monocytes % 10.7 Eosinophils % 6.7 Basophils % 0.8 Nucleated Red Blood 0.0 Cells % Immature Granulocytes 0.020 # Neutrophils # 3.8 Lymphocytes # 1.2 Monocytes # 0.7 Eosinophils # 0.4 Basophils # 0.1 Nucleated Red Blood 0.0 Cells # Sodium Level 140 Potassium Level 4.4 Chloride Level 107 Carbon Dioxide Level 26 Anion Gap 7 Blood Urea Nitrogen 77 H Creatinine 3.41 H Glucose Level 92 Calcium Level 9.0 Phosphorus Level 4.7 Magnesium Level 2.5 Albumin 3.5 Test 10/22/18 07:35 10/22/18 09:58 Bedside Glucose 149 Lab Scanned Report REFERENCE LAB Medications Medication Current Medications Amlodipine Besylate (Norvasc) 10 mg DAILY PO Last administered on 10/22/18 08:37; Admin Dose 10 MG; Start 10/14/18 at 09:00 Atorvastatin Calcium (Lipitor) 40 mg QHS PO Last administered on 10/21/18 20:12; Admin Dose 40 MG; Start 10/13/18 at 21:00 Carvedilol (Coreg) 25 mg BID PO Last administered on 10/22/18 08:38; Admin Dose 25 MG; Start 10/13/18 at 21:00 Ferrous Sulfate (Ferrous Sulfate (Ec)) 325 mg DAILY PO Last administered on 10/18/18 08:15; Admin Dose 325 MG; Start 10/14/18 at 09:00; Status Hold Hydralazine HCl (Apresoline) 100 mg BID PO Last administered on 10/22/18 08:38; Admin Dose 100 MG; Start 10/13/18 at 21:00 Insulin Glargine (Lantus) 8 unit QHS SC Last administered on 10/21/18 21:36; Admin Dose 8 UNIT; Start 10/13/18 at 21:00 IV Flush (NS 3 ml) 3 ml PER PROTOCOL IV ; Start 10/13/18 at 14:00 Ondansetron HCl (Zofran Inj) 4 mg Q6H PRN IV NAUSEA/VOMITING; Start 10/13/18 at 14:00 Nitroglycerin (Nitroglycerin (Sl Tab) 0.4 Mg) 1 tab Q5M PRN SL .CHEST PAIN; Start 10/13/18 at 14:00 Acetaminophen (Tylenol Tab) 650 mg Q6H PRN PO .PAIN 1-3 OR TEMP; Start 10/13/18 at 14:00 Docusate Sodium (Colace) 100 mg Q12H PRN PO .CONSTIPATION; Start 10/13/18 at 14:00 Magnesium Hydroxide (Milk Of Mag) 30 ml DAILY PRN PO .CONSTIPATION; Start 10/13/18 at 14:00 Pantoprazole (Protonix Tab) 40 mg DAILY@06 PO Last administered on 10/22/18at 06:20; Admin Dose 40 MG; Start 10/14/18 at 06:00 Heparin Sodium (Porcine) (Heparin (5000 Units/1ml)) 5,000 unit Q12 SC Last administered on 10/22/18at 08:44; Admin Dose 5,000 UNIT; Start 10/13/18 at 21:00 Miscellaneous Information 1 ea NOTE XX ; Start 10/13/18 at 14:30 Glucose (Glutose) 15 gm Q15M PRN PO DECREASED GLUCOSE; Start 10/13/18 at 14:30 Glucose (Glutose) 22.5 gm Q15M PRN PO DECREASED GLUCOSE; Start 10/13/18 at 14:30 Dextrose (D50w Syringe) 25 ml Q15M PRN IV DECREASED GLUCOSE; Start 10/13/18 at 14:30 Dextrose (D50w Syringe) 50 ml Q15M PRN IV DECREASED GLUCOSE; Start 10/13/18 at 14:30 Glucagon (Glucagen) 1 mg Q15M PRN IM DECREASED GLUCOSE; Start 10/13/18 at 14:30 Glucose (Glutose) 15 gm Q15M PRN BUCCAL DECREASED GLUCOSE; Start 10/13/18 at 14:30 Nicotine (Nicoderm 7 Mg/ 24 Hr) 1 patch DAILY TRANSDERM Last administered on 10/22/18at 08:39; Admin Dose 1 PATCH; Start 10/13/18 at 16:00 Insulin Aspart (Novolog Insulin Pen) NOVOLOG *MILD* ALGORITHM WITH MEALS BEDTIME SC Last administered on 10/22/18at 07:50; Admin Dose 1 UNIT; Start 10/13/18 at 18:00 Calcium Acetate (Phoslo) 667 mg WITH MEALS PO Last administered on 10/22/18at 07:57; Admin Dose 667 MG; Start 10/16/18 at 07:55 Furosemide (Lasix) 20 mg BID DIURETICS IV ; Start 10/22/18 at 08:30 Metolazone (Zaroxolyn) 2.5 mg ONCE ONCE PO ; Start 10/22/18 at 12:00; Stop 10/22/18 at 12:01 GLADIS CUNHA MD Oct 22, 2018 10:40
[2018-10-22 11:29] VITALS: BP 131/69; PULSE 73; RESP 22
[2018-10-22] MEDS ORDERED: METOLAZONE 2.5 MG TAB PO ONE (12:00)
[2018-10-22 15:45] VITALS: BP 132/70; PULSE 70; RESP 22
--- NOTE | 2018-10-22 17:05 | CONS ---
Assessment/Plan Assessment/Plan Assessment/Plan (Daily) 1. ALEX on CKD III due to hemodynamics from CHF 2.acute CHF, acute on chronic systolic + diastolic 3. 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 H/o DM II 5. H/o HL 6. h/O HTN 7. Anemia of CKD with Iron saturation 25% Plan: BUN/Cr 77/3.41, other electrolytes stable, d/c PO bumex, will give lasix 20mg IV BID with PO metaolzone at noon time ECHO showed 55-60 %. Stage II diastolic dysfunction- stopped bumed, due to rising Cr, CXR showed pulmonary congestion with Pleural effusion s/p IV iron for iron deficiency Renal US showed No hydronephrosis or nephrolithiasis., Normal size kidneys, normal echogenicity will follow up Consultation Date/Type/Reason Admit Date/Time Oct 13, 2018 at 13:26 Initial Consult Date 10/14/18 Type of Consult NEPHROLOGY Requesting Provider: GLADIS CUNHA MD Date/Time of Note DATE: 10/22/18 TIME: 17:05 Exam/Review of Systems Exam Vitals Vital Signs Date Temp Pulse Resp B/P (MAP) Pulse Ox O2 O2 Flow FiO2 Time Delivery Rate 10/22/18 98.0 70 22 132/70 96 Room Air 15:45 (90) Intake and Output 10/21/18 10/21/18 10/22/18 1515:00 23:00 07:00 IntakeIntake Total 240 ml 300 ml OutputOutput Total 1000 ml 1000 ml BalanceBalance -760 ml -700 ml Exam Constitutional: alert, awake, no acute distress ENMT: nl external ears & nose Respiratory: congested cough, crackles/rales, diminished breath sounds Cardiovascular: regular rate and rhythm Gastrointestinal: soft, non-tender Musculoskeletal: swelling (2-3+ pitting edema ) Skin: nl turgor Lymph: nl lymph node Results Result Diagram: 10/22/18 0645 10/22/18 0645 Results 24hrs Laboratory Tests Test 10/21/18 17:30 10/21/18 20:11 10/22/18 06:45 10/22/18 07:35 Bedside Glucose 139 158 149 White Blood Count 6.2 Red Blood Count 2.59 L Hemoglobin 7.5 L Hematocrit 23.2 L Mean Corpuscular 89.6 Volume Mean Corpuscular 29.0 Hemoglobin Mean Corpuscular 32.3 Hemoglobin Concent Red Cell Distribution 14.4 Width Platelet Count 168 Mean Platelet Volume 11.9 H Immature Granulocytes 0.300 % Neutrophils % 61.8 Lymphocytes % 19.7 Monocytes % 10.7 Eosinophils % 6.7 Basophils % 0.8 Nucleated Red Blood 0.0 Cells % Immature Granulocytes 0.020 # Neutrophils # 3.8 Lymphocytes # 1.2 Monocytes # 0.7 Eosinophils # 0.4 Basophils # 0.1 Nucleated Red Blood 0.0 Cells # Sodium Level 140 Potassium Level 4.4 Chloride Level 107 Carbon Dioxide Level 26 Anion Gap 7 Blood Urea Nitrogen 77 H Creatinine 3.41 H Glucose Level 92 Calcium Level 9.0 Phosphorus Level 4.7 Magnesium Level 2.5 Albumin 3.5 Test 10/22/18 09:58 10/22/18 11:51 Lab Scanned Report REFERENCE LAB Bedside Glucose 163 Medications Medication Current Medications Amlodipine Besylate (Norvasc) 10 mg DAILY PO Last administered on 10/22/18 08:37; Admin Dose 10 MG; Start 10/14/18 at 09:00 Atorvastatin Calcium (Lipitor) 40 mg QHS PO Last administered on 10/21/18 20:12; Admin Dose 40 MG; Start 10/13/18 at 21:00 Carvedilol (Coreg) 25 mg BID PO Last administered on 10/22/18 08:38; Admin Dose 25 MG; Start 10/13/18 at 21:00 Ferrous Sulfate (Ferrous Sulfate (Ec)) 325 mg DAILY PO Last administered on 10/18/18 08:15; Admin Dose 325 MG; Start 10/14/18 at 09:00; Status Hold Hydralazine HCl (Apresoline) 100 mg BID PO Last administered on 10/22/18 08:38; Admin Dose 100 MG; Start 10/13/18 at 21:00 Insulin Glargine (Lantus) 8 unit QHS SC Last administered on 10/21/18 21:36; Admin Dose 8 UNIT; Start 10/13/18 at 21:00 IV Flush (NS 3 ml) 3 ml PER PROTOCOL IV ; Start 10/13/18 at 14:00 Ondansetron HCl (Zofran Inj) 4 mg Q6H PRN IV NAUSEA/VOMITING; Start 10/13/18 at 14:00 Nitroglycerin (Nitroglycerin (Sl Tab) 0.4 Mg) 1 tab Q5M PRN SL .CHEST PAIN; Start 10/13/18 at 14:00 Acetaminophen (Tylenol Tab) 650 mg Q6H PRN PO .PAIN 1-3 OR TEMP; Start 10/13/18 at 14:00 Docusate Sodium (Colace) 100 mg Q12H PRN PO .CONSTIPATION; Start 10/13/18 at 14:00 Magnesium Hydroxide (Milk Of Mag) 30 ml DAILY PRN PO .CONSTIPATION; Start 10/13/18 at 14:00 Pantoprazole (Protonix Tab) 40 mg DAILY@06 PO Last administered on 10/22/18at 06:20; Admin Dose 40 MG; Start 10/14/18 at 06:00 Heparin Sodium (Porcine) (Heparin (5000 Units/1ml)) 5,000 unit Q12 SC Last administered on 10/22/18at 08:44; Admin Dose 5,000 UNIT; Start 10/13/18 at 21:00 Miscellaneous Information 1 ea NOTE XX ; Start 10/13/18 at 14:30 Glucose (Glutose) 15 gm Q15M PRN PO DECREASED GLUCOSE; Start 10/13/18 at 14:30 Glucose (Glutose) 22.5 gm Q15M PRN PO DECREASED GLUCOSE; Start 10/13/18 at 14:30 Dextrose (D50w Syringe) 25 ml Q15M PRN IV DECREASED GLUCOSE; Start 10/13/18 at 14:30 Dextrose (D50w Syringe) 50 ml Q15M PRN IV DECREASED GLUCOSE; Start 10/13/18 at 14:30 Glucagon (Glucagen) 1 mg Q15M PRN IM DECREASED GLUCOSE; Start 10/13/18 at 14:30 Glucose (Glutose) 15 gm Q15M PRN BUCCAL DECREASED GLUCOSE; Start 10/13/18 at 14:30 Nicotine (Nicoderm 7 Mg/ 24 Hr) 1 patch DAILY TRANSDERM Last administered on 10/22/18at 08:39; Admin Dose 1 PATCH; Start 10/13/18 at 16:00 Insulin Aspart (Novolog Insulin Pen) NOVOLOG *MILD* ALGORITHM WITH MEALS BEDTIME SC Last administered on 10/22/18at 11:57; Admin Dose 1 UNIT; Start 10/13/18 at 18:00 Calcium Acetate (Phoslo) 667 mg WITH MEALS PO Last administered on 10/22/18at 11:52; Admin Dose 667 MG; Start 10/16/18 at 07:55 Furosemide (Lasix) 20 mg BID DIURETICS IV ; Start 10/22/18 at 08:30 ANAMARIA SEAMAN MD Oct 22, 2018 17:05
[2018-10-22 20:00] VITALS: BP 138/68; PULSE 72; RESP 18
[2018-10-22] MEDS: ATORVASTATIN 40 MG TAB PO SCH (21:12)
[2018-10-22] MEDS: INSULIN GLARGINE [LANTus] (100 UNITS/ML) SYG SC SCH (22:47)
[2018-10-23] VITALS: BP 128/66; PULSE 74; RESP 18
[2018-10-23 04:00] VITALS: BP 130/63; PULSE 75; RESP 18
[2018-10-23] MEDS: PANTOPRAZOLE (EC) 40 MG TAB PO SCH (06:30)
[2018-10-23] MEDS: FUROSEMIDE 20 MG INJ IV SCH ×2 (06:30→17:08)
[2018-10-23 07:10] VITALS: BP 139/73; PULSE 71; RESP 16
[2018-10-23] MEDS: INSULIN ASPART [NOVOLOG] 3 ML PEN SC SCH ×4 (07:37→21:00)
[2018-10-23] MEDS: CALCIUM ACETATE 667 MG CAP PO SCH ×3 (07:59→17:07)
[2018-10-23] MEDS: NICOTINE (7 MG/24 HR) PATCH TRANSDERM SCH (08:12)
[2018-10-23] MEDS: AMLODIPINE 10 MG TAB PO SCH (08:14)
[2018-10-23] MEDS: HEPARIN 5,000 UNIT/1 ML VIAL SC SCH ×2 (08:36→22:03)
--- NOTE | 2018-10-23 10:02 | CONS ---
Assessment/Plan Assessment/Plan Assessment/Plan (Daily) 1. ALEX on CKD III due to hemodynamics from CHF 2.acute CHF, acute on chronic systolic + diastolic 3. 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 H/o DM II 5. H/o HL 6. h/O HTN 7. Anemia of CKD with Iron saturation 25% Plan: BUN/Cr 81/3.55, other electrolytes stable, plan is to d/c home with bumex 1 mg pO BID on discharge ECHO showed 55-60 %. Stage II diastolic dysfunction- stopped bumed, due to rising Cr, CXR showed pulmonary congestion with Pleural effusion s/p IV iron for iron deficiency Renal US showed No hydronephrosis or nephrolithiasis., Normal size kidneys, nor mal echogenicity will follow up Consultation Date/Type/Reason Admit Date/Time Oct 13, 2018 at 13:26 Initial Consult Date 10/14/18 Type of Consult NEPHROLOGY Requesting Provider: GLADIS CUNHA MD Date/Time of Note DATE: 10/23/18 TIME: 10:02 Exam/Review of Systems Exam Vitals Vital Signs Date Temp Pulse Resp B/P (MAP) Pulse Ox O2 O2 Flow FiO2 Time Delivery Rate 10/23/18 98.0 71 16 139/73 100 Room Air 07:10 (95) Intake and Output 10/22/18 10/22/18 10/23/18 1515:00 23:00 07:00 IntakeIntake Total 880 ml 200 ml OutputOutput Total 501 ml 950 ml BalanceBalance 379 ml -750 ml Results Result Diagram: 10/23/18 0622 10/23/18 0622 Results 24hrs Laboratory Tests Test 10/22/18 11:51 10/22/18 17:34 10/22/18 21:16 10/23/18 06:22 Bedside Glucose 163 132 190 White Blood Count 5.9 Red Blood Count 2.47 L Hemoglobin 7.2 L Hematocrit 22.9 L Mean Corpuscular 92.7 Volume Mean Corpuscular 29.1 Hemoglobin Mean Corpuscular 31.4 L Hemoglobin Concent Red Cell Distribution 14.4 Width Platelet Count 165 Mean Platelet Volume 12.0 H Immature Granulocytes 0.300 % Neutrophils % 58.3 Lymphocytes % 22.1 Monocytes % 12.1 H Eosinophils % 6.5 Basophils % 0.7 Nucleated Red Blood 0.0 Cells % Immature Granulocytes 0.020 # Neutrophils # 3.4 Lymphocytes # 1.3 Monocytes # 0.7 Eosinophils # 0.4 Basophils # 0.0 Nucleated Red Blood 0.0 Cells # Sodium Level 143 Potassium Level 4.7 Chloride Level 107 Carbon Dioxide Level 28 Anion Gap 8 Blood Urea Nitrogen 81 H Creatinine 3.55 H Glucose Level 126 Calcium Level 8.6 Phosphorus Level 4.8 Magnesium Level 2.6 H Albumin 3.3 Test 10/23/18 07:31 Bedside Glucose 115 Medications Medication Current Medications Amlodipine Besylate (Norvasc) 10 mg DAILY PO Last administered on 10/23/18at 08:14; Admin Dose 10 MG; Start 10/14/18 at 09:00 Atorvastatin Calcium (Lipitor) 40 mg QHS PO Last administered on 10/22/18at 21:12; Admin Dose 40 MG; Start 10/13/18 at 21:00 Carvedilol (Coreg) 25 mg BID PO Last administered on 10/23/18at 08:13; Admin Dose 25 MG; Start 10/13/18 at 21:00 Ferrous Sulfate (Ferrous Sulfate (Ec)) 325 mg DAILY PO Last administered on 10/18/18at 08:15; Admin Dose 325 MG; Start 10/14/18 at 09:00; Status Hold Hydralazine HCl (Apresoline) 100 mg BID PO Last administered on 10/23/18at 08:14; Admin Dose 100 MG; Start 10/13/18 at 21:00 IV Flush (NS 3 ml) 3 ml PER PROTOCOL IV ; Start 10/13/18 at 14:00 Ondansetron HCl (Zofran Inj) 4 mg Q6H PRN IV NAUSEA/VOMITING; Start 10/13/18 at 14:00 Nitroglycerin (Nitroglycerin (Sl Tab) 0.4 Mg) 1 tab Q5M PRN SL .CHEST PAIN; Start 10/13/18 at 14:00 Acetaminophen (Tylenol Tab) 650 mg Q6H PRN PO .PAIN 1-3 OR TEMP; Start 10/13/18 at 14:00 Docusate Sodium (Colace) 100 mg Q12H PRN PO .CONSTIPATION; Start 10/13/18 at 14:00 Magnesium Hydroxide (Milk Of Mag) 30 ml DAILY PRN PO .CONSTIPATION; Start 10/13/18 at 14:00 Pantoprazole (Protonix Tab) 40 mg DAILY@06 PO Last administered on 10/23/18 06:30; Admin Dose 40 MG; Start 10/14/18 at 06:00 Heparin Sodium (Porcine) (Heparin (5000 Units/1ml)) 5,000 unit Q12 SC Last administered on 10/23/18 08:36; Admin Dose 5,000 UNIT; Start 10/13/18 at 21:00 Miscellaneous Information 1 ea NOTE XX ; Start 10/13/18 at 14:30 Glucose (Glutose) 15 gm Q15M PRN PO DECREASED GLUCOSE; Start 10/13/18 at 14:30 Glucose (Glutose) 22.5 gm Q15M PRN PO DECREASED GLUCOSE; Start 10/13/18 at 14:30 Dextrose (D50w Syringe) 25 ml Q15M PRN IV DECREASED GLUCOSE; Start 10/13/18 at 14:30 Dextrose (D50w Syringe) 50 ml Q15M PRN IV DECREASED GLUCOSE; Start 10/13/18 at 14:30 Glucagon (Glucagen) 1 mg Q15M PRN IM DECREASED GLUCOSE; Start 10/13/18 at 14:30 Glucose (Glutose) 15 gm Q15M PRN BUCCAL DECREASED GLUCOSE; Start 10/13/18 at 14:30 Nicotine (Nicoderm 7 Mg/ 24 Hr) 1 patch DAILY TRANSDERM Last administered on 10/23/18at 08:12; Admin Dose 1 PATCH; Start 10/13/18 at 16:00 Insulin Aspart (Novolog Insulin Pen) NOVOLOG *MILD* ALGORITHM WITH MEALS BEDTIME SC Last administered on 10/22/18 21:36; Admin Dose 1 UNIT; Start 10/13/18 at 18:00 Calcium Acetate (Phoslo) 667 mg WITH MEALS PO Last administered on 10/23/18 07:59; Admin Dose 667 MG; Start 10/16/18 at 07:55 Furosemide (Lasix) 20 mg BID DIURETICS IV Last administered on 10/23/18 06:30; Admin Dose 20 MG; Start 10/22/18 at 08:30 Insulin Glargine (Lantus) 8 units QHS SC Last administered on 10/22/18at 22:47; Admin Dose 8 UNITS; Start 10/22/18 at 21:00 ANAMARIA SEAMAN MD Oct 23, 2018 10:02
--- NOTE | 2018-10-23 10:26 | CONS ---
Assessment/Plan Assessment/Plan Hospital Course (Demo Recall) Acute on chronic diastolic heart failure: EF preserved, grade 2 diastolic dysfunction. Improved with diuresis but still decompensated on exam HTN CKD: unknown baseline. Stabilizing around 3.5 -diuretics per nephrology. Probably bumex 1mg PO BID on discharge -coreg 25mg BID -amlodipine 10mg -hydralazine 100mg BID Consultation Date/Type/Reason Admit Date/Time Oct 13, 2018 at 13:26 Initial Consult Date 10/14/18 Type of Consult Cardiology Requesting Provider: GLADIS CUNHA MD Date/Time of Note DATE: 10/23/18 TIME: 10:24 24 HR Interval Summary Free Text/Dictation Back on IV diuretics. Cr relatively stable around 3.5. No complaints Exam/Review of Systems Vital Signs Vitals Vital Signs Date Temp Pulse Resp B/P (MAP) Pulse Ox O2 O2 Flow FiO2 Time Delivery Rate 10/23/18 98.0 71 16 139/73 100 Room Air 07:10 (95) Intake and Output 10/22/18 10/22/18 10/23/18 1515:00 23:00 07:00 IntakeIntake Total 880 ml 200 ml OutputOutput Total 501 ml 950 ml BalanceBalance 379 ml -750 ml Exam Constitutional: alert, oriented Psych: no complaints Head: normocephalic, atraumatic Neck: jvd (89cm) Respiratory: crackles/rales (bases); No clear to auscultation Cardiovascular: regular rate and rhythm, edema (1+) Gastrointestinal: soft, non-tender; No distended Neurological: nl mental status, nl speech Labs Result Diagram: 10/23/1862110/23/18 06 Results 24hrs Laboratory Tests Test 10/22/18 11:51 10/22/18 17:34 10/22/18 21:16 10/23/18 06:22 Bedside Glucose 163 132 190 White Blood Count 5.9 Red Blood Count 2.47 L Hemoglobin 7.2 L Hematocrit 22.9 L Mean Corpuscular 92.7 Volume Mean Corpuscular 29.1 Hemoglobin Mean Corpuscular 31.4 L Hemoglobin Concent Red Cell Distribution 14.4 Width Platelet Count 165 Mean Platelet Volume 12.0 H Immature Granulocytes 0.300 % Neutrophils % 58.3 Lymphocytes % 22.1 Monocytes % 12.1 H Eosinophils % 6.5 Basophils % 0.7 Nucleated Red Blood 0.0 Cells % Immature Granulocytes 0.020 # Neutrophils # 3.4 Lymphocytes # 1.3 Monocytes # 0.7 Eosinophils # 0.4 Basophils # 0.0 Nucleated Red Blood 0.0 Cells # Sodium Level 143 Potassium Level 4.7 Chloride Level 107 Carbon Dioxide Level 28 Anion Gap 8 Blood Urea Nitrogen 81 H Creatinine 3.55 H Glucose Level 126 Calcium Level 8.6 Phosphorus Level 4.8 Magnesium Level 2.6 H Albumin 3.3 Test 10/23/18 07:31 Bedside Glucose 115 Medications Medications Current Medications Amlodipine Besylate (Norvasc) 10 mg DAILY PO Last administered on 10/23/18at 08:14; Admin Dose 10 MG; Start 10/14/18 at 09:00 Atorvastatin Calcium (Lipitor) 40 mg QHS PO Last administered on 10/22/18at 21:12; Admin Dose 40 MG; Start 10/13/18 at 21:00 Carvedilol (Coreg) 25 mg BID PO Last administered on 10/23/18at 08:13; Admin Dose 25 MG; Start 10/13/18 at 21:00 Ferrous Sulfate (Ferrous Sulfate (Ec)) 325 mg DAILY PO Last administered on 10/18/18at 08:15; Admin Dose 325 MG; Start 10/14/18 at 09:00; Status Hold Hydralazine HCl (Apresoline) 100 mg BID PO Last administered on 10/23/18at 08:14; Admin Dose 100 MG; Start 10/13/18 at 21:00 IV Flush (NS 3 ml) 3 ml PER PROTOCOL IV ; Start 10/13/18 at 14:00 Ondansetron HCl (Zofran Inj) 4 mg Q6H PRN IV NAUSEA/VOMITING; Start 10/13/18 at 14:00 Nitroglycerin (Nitroglycerin (Sl Tab) 0.4 Mg) 1 tab Q5M PRN SL .CHEST PAIN; Start 10/13/18 at 14:00 Acetaminophen (Tylenol Tab) 650 mg Q6H PRN PO .PAIN 1-3 OR TEMP; Start 10/13/18 at 14:00 Docusate Sodium (Colace) 100 mg Q12H PRN PO .CONSTIPATION; Start 10/13/18 at 14:00 Magnesium Hydroxide (Milk Of Mag) 30 ml DAILY PRN PO .CONSTIPATION; Start 10/13/18 at 14:00 Pantoprazole (Protonix Tab) 40 mg DAILY@06 PO Last administered on 10/23/18at 06:30; Admin Dose 40 MG; Start 10/14/18 at 06:00 Heparin Sodium (Porcine) (Heparin (5000 Units/1ml)) 5,000 unit Q12 SC Last administered on 10/23/18 08:36; Admin Dose 5,000 UNIT; Start 10/13/18 at 21:00 Miscellaneous Information 1 ea NOTE XX ; Start 10/13/18 at 14:30 Glucose (Glutose) 15 gm Q15M PRN PO DECREASED GLUCOSE; Start 10/13/18 at 14:30 Glucose (Glutose) 22.5 gm Q15M PRN PO DECREASED GLUCOSE; Start 10/13/18 at 14:30 Dextrose (D50w Syringe) 25 ml Q15M PRN IV DECREASED GLUCOSE; Start 10/13/18 at 14:30 Dextrose (D50w Syringe) 50 ml Q15M PRN IV DECREASED GLUCOSE; Start 10/13/18 at 14:30 Glucagon (Glucagen) 1 mg Q15M PRN IM DECREASED GLUCOSE; Start 10/13/18 at 14:30 Glucose (Glutose) 15 gm Q15M PRN BUCCAL DECREASED GLUCOSE; Start 10/13/18 at 14:30 Nicotine (Nicoderm 7 Mg/ 24 Hr) 1 patch DAILY TRANSDERM Last administered on 10/23/18at 08:12; Admin Dose 1 PATCH; Start 10/13/18 at 16:00 Insulin Aspart (Novolog Insulin Pen) NOVOLOG *MILD* ALGORITHM WITH MEALS BEDTIME SC Last administered on 10/22/18at 21:36; Admin Dose 1 UNIT; Start 10/13/18 at 18:00 Calcium Acetate (Phoslo) 667 mg WITH MEALS PO Last administered on 10/23/18at 07:59; Admin Dose 667 MG; Start 10/16/18 at 07:55 Furosemide (Lasix) 20 mg BID DIURETICS IV Last administered on 10/23/18at 06:30; Admin Dose 20 MG; Start 10/22/18 at 08:30 Insulin Glargine (Lantus) 8 units QHS SC Last administered on 10/22/18at 22:47; Admin Dose 8 UNITS; Start 10/22/18 at 21:00 BRADEN GARCIA Oct 23, 2018 10:26
[2018-10-23 12:43] VITALS: BP 139/69; PULSE 72; RESP 15
--- NOTE | 2018-10-23 14:28 | PN ---
Date/Time of Note Date/Time of Note DATE: 10/16/18 TIME: 14:26 Objective Vitals Vital Signs Date Temp Pulse Resp B/P (MAP) Pulse Ox O2 O2 Flow FiO2 Time Delivery Rate 10/23/18 98.0 72 15 139/69 100 Room Air 12:43 (92) Intake and Output 10/22/18 10/22/18 10/23/18 1515:00 23:00 07:00 IntakeIntake Total 880 ml 200 ml OutputOutput Total 501 ml 950 ml BalanceBalance 379 ml -750 ml Results Result Diagram: 10/23/1862110/23/18621 Medications Medications Current Medications Amlodipine Besylate (Norvasc) 10 mg DAILY PO Last administered on 10/23/18at 08:14; Admin Dose 10 MG; Start 10/14/18 at 09:00 Atorvastatin Calcium (Lipitor) 40 mg QHS PO Last administered on 10/22/18at 21:12; Admin Dose 40 MG; Start 10/13/18 at 21:00 Carvedilol (Coreg) 25 mg BID PO Last administered on 10/23/18at 08:13; Admin Dose 25 MG; Start 10/13/18 at 21:00 Ferrous Sulfate (Ferrous Sulfate (Ec)) 325 mg DAILY PO Last administered on 10/18/18at 08:15; Admin Dose 325 MG; Start 10/14/18 at 09:00; Status Hold Hydralazine HCl (Apresoline) 100 mg BID PO Last administered on 10/23/18at 08:14; Admin Dose 100 MG; Start 10/13/18 at 21:00 IV Flush (NS 3 ml) 3 ml PER PROTOCOL IV ; Start 10/13/18 at 14:00 Ondansetron HCl (Zofran Inj) 4 mg Q6H PRN IV NAUSEA/VOMITING; Start 10/13/18 at 14:00 Nitroglycerin (Nitroglycerin (Sl Tab) 0.4 Mg) 1 tab Q5M PRN SL .CHEST PAIN; Start 10/13/18 at 14:00 Acetaminophen (Tylenol Tab) 650 mg Q6H PRN PO .PAIN 1-3 OR TEMP; Start 10/13/18 at 14:00 Docusate Sodium (Colace) 100 mg Q12H PRN PO .CONSTIPATION; Start 10/13/18 at 14:00 Magnesium Hydroxide (Milk Of Mag) 30 ml DAILY PRN PO .CONSTIPATION; Start 10/13/18 at 14:00 Pantoprazole (Protonix Tab) 40 mg DAILY@06 PO Last administered on 10/23/18 06:30; Admin Dose 40 MG; Start 10/14/18 at 06:00 Heparin Sodium (Porcine) (Heparin (5000 Units/1ml)) 5,000 unit Q12 SC Last administered on 10/23/18 08:36; Admin Dose 5,000 UNIT; Start 10/13/18 at 21:00 Miscellaneous Information 1 ea NOTE XX ; Start 10/13/18 at 14:30 Glucose (Glutose) 15 gm Q15M PRN PO DECREASED GLUCOSE; Start 10/13/18 at 14:30 Glucose (Glutose) 22.5 gm Q15M PRN PO DECREASED GLUCOSE; Start 10/13/18 at 14:30 Dextrose (D50w Syringe) 25 ml Q15M PRN IV DECREASED GLUCOSE; Start 10/13/18 at 14:30 Dextrose (D50w Syringe) 50 ml Q15M PRN IV DECREASED GLUCOSE; Start 10/13/18 at 14:30 Glucagon (Glucagen) 1 mg Q15M PRN IM DECREASED GLUCOSE; Start 10/13/18 at 14:30 Glucose (Glutose) 15 gm Q15M PRN BUCCAL DECREASED GLUCOSE; Start 10/13/18 at 14:30 Nicotine (Nicoderm 7 Mg/ 24 Hr) 1 patch DAILY TRANSDERM Last administered on 10/23/18at 08:12; Admin Dose 1 PATCH; Start 10/13/18 at 16:00 Insulin Aspart (Novolog Insulin Pen) NOVOLOG *MILD* ALGORITHM WITH MEALS BEDTIME SC Last administered on 10/22/18at 21:36; Admin Dose 1 UNIT; Start 10/13/18 at 18:00 Calcium Acetate (Phoslo) 667 mg WITH MEALS PO Last administered on 10/23/18 11:53; Admin Dose 667 MG; Start 10/16/18 at 07:55 Furosemide (Lasix) 20 mg BID DIURETICS IV Last administered on 10/23/18 06:30; Admin Dose 20 MG; Start 10/22/18 at 08:30 Insulin Glargine (Lantus) 8 units QHS SC Last administered on 7/9/19at 22:47; Admin Dose 8 UNITS; Start 10/22/18 at 21:00 VTE Prophylaxis Risk score (from Ns)>0 risk: 3 SCD applied (from Ns): No SCD contraindication: other Lines/Catheters IV Catheter Type: Iqbal in Place: No Assessment/Plan Hospital Course This note is intended for 10/16/18 Subjective Patient doing well Objective Physical exam General: Patient is laying in bed and answers questions appropriately Mentation: Patient is alert and oriented 4, Head: Normocephalic atraumatic Eyes: EOMI, pupils reactive to light Neck: Supple, nontender, midline Respiratory: Coarse to auscultation bilaterally Cardiovascular: regular rate, no obvious murmurs Gastrointestinal: non-tender to palpation, bowel sounds heard. Neurological: Moves all extremities spontaneously Skin: No new skin lesions Assessment/Plan 1. Acute on chronic heart failure - BNP elevated, 4000 on admission - ECHO ordered to assess EF, likely diastolic dysfunction - Diuretics on board - Dr. Gutiérrez, Cardiology consulted for assistance with diuresis and medication adjustments - Daily weights and I/O - No effusions or pulmonary edema on CXR Lower extremity swelling, bilateral -Secondary to above diastolic heart failure -Venous ultrasound pending -Continue diuretics 2. ALEX on CKD - possible secondary to cardio renal vs diabetic nephropathy - Unsure baseline - Dr. Lieberman, Nephrology consulted for further recommendations - Renal US noted - avoid nephrotoxic agents 3. Anemia -Iron levels noted - no need for transfusions at this time 4. Diabetes Mellitus - A1c ordered - ISS and accuchecks - holding Metformin in setting of ALEX 5. HTN - continue home medications 6. Constipation - bowel regime 7. LE edema - secondary to CHF 8. Diet - Carb controlled 9. Disposition -cont diureses, keep close eye on Cr. FRANSICO BERRY Oct 23, 2018 14:27
--- NOTE | 2018-10-23 16:36 | PN ---
Date/Time of Note Date/Time of Note DATE: 10/23/18 TIME: 16:31 Assessment/Plan VTE Prophylaxis Risk score (from Ns)>0 risk: 3 SCD applied (from [facility] [place] No SCD contraindicated: other Pharmacological prophylaxis: heparin Lines/Catheters IV [facility]ter Type (from [facility] Urinary Cath still in place: No Assessment/Plan Assessment/Plan 1. Acute on chronic heart failure - patient doing well and cleared from Cardiology standpoint for discharge. Okay for Nephrology to manage decision for diuretics - ECHO results noted - continue monitoring I/O and daily weights 2. Lower extremity swelling, bilateral- improving - improving with diuresis - Venous ultrasound noted 3. ALEX on CKD - Discussed with Nephrology and will plan to d/c patient tomorrow on Lasix 40 BID. Will need to follow up as outpatient - Renal US noted - avoid nephrotoxic agents 4. Anemia - Iron levels noted - no need for transfusions at this time - most likely secondary to renal failure 5. Diabetes Mellitus - A1c noted - ISS and accuchecks - holding Metformin in setting of ALEX 6. HTN - continue home medications 7. Constipation - bowel regimen 8. Disposition - If continues to improve, will d/c on PO Lasix tomorrow Result Diagram: 10/23/1862110/23/1822 Results 24hrs Laboratory Tests Test 10/22/18 17:34 10/22/18 21:16 10/23/18 06:22 10/23/18 07:31 Bedside Glucose 132 190 115 White Blood Count 5.9 Red Blood Count 2.47 L Hemoglobin 7.2 L Hematocrit 22.9 L Mean Corpuscular 92.7 Volume Mean Corpuscular 29.1 Hemoglobin Mean Corpuscular 31.4 L Hemoglobin Concent Red Cell Distribution 14.4 Width Platelet Count 165 Mean Platelet Volume 12.0 H Immature Granulocytes 0.300 % Neutrophils % 58.3 Lymphocytes % 22.1 Monocytes % 12.1 H Eosinophils % 6.5 Basophils % 0.7 Nucleated Red Blood 0.0 Cells % Immature Granulocytes 0.020 # Neutrophils # 3.4 Lymphocytes # 1.3 Monocytes # 0.7 Eosinophils # 0.4 Basophils # 0.0 Nucleated Red Blood 0.0 Cells # Sodium Level 143 Potassium Level 4.7 Chloride Level 107 Carbon Dioxide Level 28 Anion Gap 8 Blood Urea Nitrogen 81 H Creatinine 3.55 H Glucose Level 126 Calcium Level 8.6 Phosphorus Level 4.8 Magnesium Level 2.6 H Albumin 3.3 Test 10/23/18 11:34 Bedside Glucose 133 Subjective 24 Hr Interval Summary Free Text/Dictation Patient doing well and denies any acute issues. No chest pain or shortness of breath noted. Exam/Review of Systems Exam Vitals Vital Signs Date Temp Pulse Resp B/P (MAP) Pulse Ox O2 O2 Flow FiO2 Time Delivery Rate 10/23/18 98.0 72 15 139/69 100 Room Air 12:43 (92) Intake and Output 10/22/18 10/22/18 10/23/18 1515:00 23:00 07:00 IntakeIntake Total 880 ml 200 ml OutputOutput Total 501 ml 950 ml BalanceBalance 379 ml -750 ml Exam General: Patient is laying in bed and answers questions appropriately. no acute distress Neck: Supple, nontender, midline Respiratory: Diminished. no wheezing Cardiovascular: regular rate and rhythm, no obvious murmurs Gastrointestinal: soft, non-tender to palpation, nondistended, bowel sounds heard. ext: Moves all extremities spontaneously. pedal edema bilaterally. no cyanosis or clubbing Skin: No new skin lesions Results Results 24hrs Laboratory Tests Test 10/22/18 17:34 10/22/18 21:16 10/23/18 06:22 10/23/18 07:31 Bedside Glucose 132 190 115 White Blood Count 5.9 Red Blood Count 2.47 L Hemoglobin 7.2 L Hematocrit 22.9 L Mean Corpuscular 92.7 Volume Mean Corpuscular 29.1 Hemoglobin Mean Corpuscular 31.4 L Hemoglobin Concent Red Cell Distribution 14.4 Width Platelet Count 165 Mean Platelet Volume 12.0 H Immature Granulocytes 0.300 % Neutrophils % 58.3 Lymphocytes % 22.1 Monocytes % 12.1 H Eosinophils % 6.5 Basophils % 0.7 Nucleated Red Blood 0.0 Cells % Immature Granulocytes 0.020 # Neutrophils # 3.4 Lymphocytes # 1.3 Monocytes # 0.7 Eosinophils # 0.4 Basophils # 0.0 Nucleated Red Blood 0.0 Cells # Sodium Level 143 Potassium Level 4.7 Chloride Level 107 Carbon Dioxide Level 28 Anion Gap 8 Blood Urea Nitrogen 81 H Creatinine 3.55 H Glucose Level 126 Calcium Level 8.6 Phosphorus Level 4.8 Magnesium Level 2.6 H Albumin 3.3 Test 10/23/18 11:34 Bedside Glucose 133 Medications Medication Current Medications Amlodipine Besylate (Norvasc) 10 mg DAILY PO Last administered on 10/23/18at 08:14; Admin Dose 10 MG; Start 10/14/18 at 09:00 Atorvastatin Calcium (Lipitor) 40 mg QHS PO Last administered on 10/22/18at 21:12; Admin Dose 40 MG; Start 10/13/18 at 21:00 Carvedilol (Coreg) 25 mg BID PO Last administered on 10/23/18at 08:13; Admin Dose 25 MG; Start 10/13/18 at 21:00 Ferrous Sulfate (Ferrous Sulfate (Ec)) 325 mg DAILY PO Last administered on 10/18/18at 08:15; Admin Dose 325 MG; Start 10/14/18 at 09:00; Status Hold Hydralazine HCl (Apresoline) 100 mg BID PO Last administered on 10/23/18at 08:14; Admin Dose 100 MG; Start 10/13/18 at 21:00 IV Flush (NS 3 ml) 3 ml PER PROTOCOL IV ; Start 10/13/18 at 14:00 Ondansetron HCl (Zofran Inj) 4 mg Q6H PRN IV NAUSEA/VOMITING; Start 10/13/18 at 14:00 Nitroglycerin (Nitroglycerin (Sl Tab) 0.4 Mg) 1 tab Q5M PRN SL .CHEST PAIN; Start 10/13/18 at 14:00 Acetaminophen (Tylenol Tab) 650 mg Q6H PRN PO .PAIN 1-3 OR TEMP; Start 10/13/18 at 14:00 Docusate Sodium (Colace) 100 mg Q12H PRN PO .CONSTIPATION; Start 10/13/18 at 14:00 Magnesium Hydroxide (Milk Of Mag) 30 ml DAILY PRN PO .CONSTIPATION; Start 10/13/18 at 14:00 Pantoprazole (Protonix Tab) 40 mg DAILY@06 PO Last administered on 10/23/18at 06:30; Admin Dose 40 MG; Start 10/14/18 at 06:00 Heparin Sodium (Porcine) (Heparin (5000 Units/1ml)) 5,000 unit Q12 SC Last administered on 10/23/18at 08:36; Admin Dose 5,000 UNIT; Start 10/13/18 at 21:00 Miscellaneous Information 1 ea NOTE XX ; Start 10/13/18 at 14:30 Glucose (Glutose) 15 gm Q15M PRN PO DECREASED GLUCOSE; Start 10/13/18 at 14:30 Glucose (Glutose) 22.5 gm Q15M PRN PO DECREASED GLUCOSE; Start 10/13/18 at 14:30 Dextrose (D50w Syringe) 25 ml Q15M PRN IV DECREASED GLUCOSE; Start 10/13/18 at 14:30 Dextrose (D50w Syringe) 50 ml Q15M PRN IV DECREASED GLUCOSE; Start 10/13/18 at 14:30 Glucagon (Glucagen) 1 mg Q15M PRN IM DECREASED GLUCOSE; Start 10/13/18 at 14:30 Glucose (Glutose) 15 gm Q15M PRN BUCCAL DECREASED GLUCOSE; Start 10/13/18 at 14 :30 Nicotine (Nicoderm 7 Mg/ 24 Hr) 1 patch DAILY TRANSDERM Last administered on 10/23/18at 08:12; Admin Dose 1 PATCH; Start 10/13/18 at 16:00 Insulin Aspart (Novolog Insulin Pen) NOVOLOG *MILD* ALGORITHM WITH MEALS BEDTIME SC Last administered on 10/22/18at 21:36; Admin Dose 1 UNIT; Start 10/13/18 at 18:00 Calcium Acetate (Phoslo) 667 mg WITH MEALS PO Last administered on 10/23/18at 11:53; Admin Dose 667 MG; Start 10/16/18 at 07:55 Furosemide (Lasix) 20 mg BID DIURETICS IV Last administered on 10/23/18at 06:30; Admin Dose 20 MG; Start 10/22/18 at 08:30 Insulin Glargine (Lantus) 8 units QHS SC Last administered on 10/22/18at 22:47; Admin Dose 8 UNITS; Start 10/22/18 at 21:00 GLADIS CUNHA MD Oct 23, 2018 16:35
[2018-10-23 17:00] VITALS: BP 121/70; PULSE 67; RESP 14
[2018-10-23 20:13] VITALS: BP 128/67; PULSE 67; RESP 20
[2018-10-23] MEDS: ATORVASTATIN 40 MG TAB PO SCH (21:52)
[2018-10-23] MEDS: INSULIN GLARGINE [LANTus] (100 UNITS/ML) SYG SC SCH (22:35)
[2018-10-24 00:06] VITALS: BP 126/67; PULSE 67; RESP 20
[2018-10-24 04:13] VITALS: BP 129/64; PULSE 72; RESP 20
[2018-10-24] MEDS: PANTOPRAZOLE (EC) 40 MG TAB PO SCH (05:46)
[2018-10-24] MEDS: FUROSEMIDE 20 MG INJ IV SCH (05:47)
[2018-10-24 07:06] VITALS: BP 144/72; PULSE 71; RESP 18
[2018-10-24] MEDS: INSULIN ASPART [NOVOLOG] 3 ML PEN SC SCH ×3 (07:55→17:41)
[2018-10-24] MEDS: CALCIUM ACETATE 667 MG CAP PO SCH ×3 (08:24→17:47)
[2018-10-24] MEDS: AMLODIPINE 10 MG TAB PO SCH (08:26)
[2018-10-24] MEDS: NICOTINE (7 MG/24 HR) PATCH TRANSDERM SCH (08:26)
[2018-10-24] MEDS: HEPARIN 5,000 UNIT/1 ML VIAL SC SCH (08:30)
--- NOTE | 2018-10-24 10:50 | PN ---
Date/Time of Note Date/Time of Note DATE: 10/24/18 TIME: 10:47 Assessment/Plan VTE Prophylaxis Risk score (from Ns)>0 risk: 3 [place] [facility] [place]CD contraindicated: other Pharmacological prophylaxis: heparin Lines/Catheters IV Catheter Type (from [facility]): [place] Urinary Cath still in place: No Assessment/Plan Assessment/Plan 1. Acute on chronic heart failure - Continue to diurese well and will d/c on lasix 40 PO BID - Appreciate Cardiology consultation - Nephrology on board and appreciate recommendations. Managing diuretics - ECHO results noted - continue monitoring I/O and daily weights 2. Lower extremity swelling, bilateral- improving - improving with diuresis - Venous ultrasound noted 3. ALEX on CKD - Nephrology on board and appreciate recommendations - Renal US noted - avoid nephrotoxic agents 4. Anemia - Iron levels noted - no need for transfusions at this time - most likely secondary to renal failure 5. Diabetes Mellitus - A1c noted - ISS and accuchecks - holding Metformin in setting of ALEX 6. HTN - continue home medications 7. Constipation - bowel regimen 8. Disposition - Medically stable for discharge home Result Diagram: 10/24/18 0717 10/24/18 0717 Results 24hrs Laboratory Tests Test 10/23/18 11:34 10/23/18 17:05 10/23/18 21:51 10/24/18 07:17 Bedside Glucose 133 112 119 White Blood Count 6.3 Red Blood Count 2.54 L Hemoglobin 7.4 L Hematocrit 23.2 L Mean Corpuscular 91.3 Volume Mean Corpuscular 29.1 Hemoglobin Mean Corpuscular 31.9 L Hemoglobin Concent Red Cell 14.5 Distribution Width Platelet Count 186 Mean Platelet Volume 12.3 H Immature 0.300 Granulocytes % Neutrophils % 63.8 Lymphocytes % 19.8 Monocytes % 9.8 Eosinophils % 5.7 Basophils % 0.6 Nucleated Red Blood 0.0 Cells % Immature 0.020 Granulocytes # Neutrophils # 4.0 Lymphocytes # 1.3 Monocytes # 0.6 Eosinophils # 0.4 Basophils # 0.0 Nucleated Red Blood 0.0 Cells # Sodium Level 141 Potassium Level 4.3 Chloride Level 105 Carbon Dioxide Level 27 Anion Gap 9 Blood Urea Nitrogen 84 H Creatinine 3.45 H Glucose Level 82 # Calcium Level 8.8 Phosphorus Level 5.0 H Magnesium Level 2.5 Albumin 3.4 Test 10/24/18 08:28 Bedside Glucose 94 Subjective 24 Hr Interval Summary Free Text/Dictation Patient states he's feeling better and denies any new issues. No acute ove rnight events. Exam/Review of Systems Exam Vitals Vital Signs Date Temp Pulse Resp B/P (MAP) Pulse Ox O2 O2 Flow FiO2 Time Delivery Rate 10/24/18 98.7 71 18 144/72 95 07:06 (96) 10/23/18 Room Air 17:00 Intake and Output 10/23/18 10/23/18 10/24/18 1515:00 23:00 07:00 IntakeIntake Total 300 ml 700 ml OutputOutput Total 500 ml 1050 ml 700 ml BalanceBalance -200 ml -350 ml -700 ml Exam General: Patient is laying in bed and answers questions appropriately. no acute distress Neck: Supple, nontender, midline Respiratory: Diminished. no wheezing Cardiovascular: regular rate and rhythm, no obvious murmurs Gastrointestinal: soft, non-tender to palpation, nondistended, bowel sounds heard. ext: Moves all extremities spontaneously. pedal edema bilaterally. no cyanosis or clubbing Skin: No new skin lesions Results Results 24hrs Laboratory Tests Test 10/23/18 11:34 10/23/18 17:05 10/23/18 21:51 10/24/18 07:17 Bedside Glucose 133 112 119 White Blood Count 6.3 Red Blood Count 2.54 L Hemoglobin 7.4 L Hematocrit 23.2 L Mean Corpuscular 91.3 Volume Mean Corpuscular 29.1 Hemoglobin Mean Corpuscular 31.9 L Hemoglobin Concent Red Cell 14.5 Distribution Width Platelet Count 186 Mean Platelet Volume 12.3 H Immature 0.300 Granulocytes % Neutrophils % 63.8 Lymphocytes % 19.8 Monocytes % 9.8 Eosinophils % 5.7 Basophils % 0.6 Nucleated Red Blood 0.0 Cells % Immature 0.020 Granulocytes # Neutrophils # 4.0 Lymphocytes # 1.3 Monocytes # 0.6 Eosinophils # 0.4 Basophils # 0.0 Nucleated Red Blood 0.0 Cells # Sodium Level 141 Potassium Level 4.3 Chloride Level 105 Carbon Dioxide Level 27 Anion Gap 9 Blood Urea Nitrogen 84 H Creatinine 3.45 H Glucose Level 82 # Calcium Level 8.8 Phosphorus Level 5.0 H Magnesium Level 2.5 Albumin 3.4 Test 10/24/18 08:28 Bedside Glucose 94 Medications Medication Current Medications Amlodipine Besylate (Norvasc) 10 mg DAILY PO Last administered on 10/24/18 08 :26; Admin Dose 10 MG; Start 10/14/18 at 09:00 Atorvastatin Calcium (Lipitor) 40 mg QHS PO Last administered on 10/23/18at 21:52; Admin Dose 40 MG; Start 10/13/18 at 21:00 Carvedilol (Coreg) 25 mg BID PO Last administered on 10/24/18 08:26; Admin Dose 25 MG; Start 10/13/18 at 21:00 Ferrous Sulfate (Ferrous Sulfate (Ec)) 325 mg DAILY PO Last administered on 10/18/18 08:15; Admin Dose 325 MG; Start 10/14/18 at 09:00; Status Hold Hydralazine HCl (Apresoline) 100 mg BID PO Last administered on 10/24/18 08:25; Admin Dose 100 MG; Start 10/13/18 at 21:00 IV Flush (NS 3 ml) 3 ml PER PROTOCOL IV ; Start 10/13/18 at 14:00 Ondansetron HCl (Zofran Inj) 4 mg Q6H PRN IV NAUSEA/VOMITING; Start 10/13/18 at 14:00 Nitroglycerin (Nitroglycerin (Sl Tab) 0.4 Mg) 1 tab Q5M PRN SL .CHEST PAIN; Start 10/13/18 at 14:00 Acetaminophen (Tylenol Tab) 650 mg Q6H PRN PO .PAIN 1-3 OR TEMP; Start 10/13/18 at 14:00 Docusate Sodium (Colace) 100 mg Q12H PRN PO .CONSTIPATION; Start 10/13/18 at 14:00 Magnesium Hydroxide (Milk Of Mag) 30 ml DAILY PRN PO .CONSTIPATION; Start 10/13/18 at 14:00 Pantoprazole (Protonix Tab) 40 mg DAILY@06 PO Last administered on 10/24/18at 05:46; Admin Dose 40 MG; Start 10/14/18 at 06:00 Heparin Sodium (Porcine) (Heparin (5000 Units/1ml)) 5,000 unit Q12 SC Last administered on 10/24/18at 08:30; Admin Dose 5,000 UNIT; Start 10/13/18 at 21:00 Miscellaneous Information 1 ea NOTE XX ; Start 10/13/18 at 14:30 Glucose (Glutose) 15 gm Q15M PRN PO DECREASED GLUCOSE; Start 10/13/18 at 14:30 Glucose (Glutose) 22.5 gm Q15M PRN PO DECREASED GLUCOSE; Start 10/13/18 at 14:30 Dextrose (D50w Syringe) 25 ml Q15M PRN IV DECREASED GLUCOSE; Start 10/13/18 at 14:30 Dextrose (D50w Syringe) 50 ml Q15M PRN IV DECREASED GLUCOSE; Start 10/13/18 at 14:30 Glucagon (Glucagen) 1 mg Q15M PRN IM DECREASED GLUCOSE; Start 10/13/18 at 14:30 Glucose (Glutose) 15 gm Q15M PRN BUCCAL DECREASED GLUCOSE; Start 10/13/18 at 14:30 Nicotine (Nicoderm 7 Mg/ 24 Hr) 1 patch DAILY TRANSDERM Last administered on 10/24/18 08:26; Admin Dose 1 PATCH; Start 10/13/18 at 16:00 Insulin Aspart (Novolog Insulin Pen) NOVOLOG *MILD* ALGORITHM WITH MEALS BEDTIME SC Last administered on 10/22/18at 21:36; Admin Dose 1 UNIT; Start 10/13/18 at 18:00 Calcium Acetate (Phoslo) 667 mg WITH MEALS PO Last administered on 10/24/18 08:24; Admin Dose 667 MG; Start 10/16/18 at 07:55 Furosemide (Lasix) 20 mg BID DIURETICS IV Last administered on 10/24/18 05:47; Admin Dose 20 MG; Start 10/22/18 at 08:30 Insulin Glargine (Lantus) 8 units QHS SC Last administered on 10/23/18at 22:35; Admin Dose 8 UNITS; Start 10/22/18 at 21:00 GLADIS CUNHA MD Oct 24, 2018 10:50
[2018-10-24] MEDS ORDERED: CALC667C PO (10:56)
--- NOTE | 2018-10-24 11:02 | PDOCDIS ---
Discharge Instructions DIAGNOSIS Discharge Diagnosis 1. Acute on chronic heart failure- improving 2. Lower extremity swelling, bilateral- improving 3. Acute kidney injury on Chronic kidney disease 4. Anemia of chronic disease 5. Diabetes Mellitus 6. HTN CONDITION [id number] Patient Condition: [id number] Stable HOME CARE INSTRUCTIONS: [id number] Diet Instructions: [id number] FOLLOW UP/APPOINTMENTS Follow-up Plan 1. Follow up with your primary care physician in 1-2 weeks 2. Follow up with Dr. Lieberman for monitoring of your renal function. You will need to call his office to make an appointment 3. Continue taking Lasix twice a day to help keep the fluid off your legs. The medication lasts 6 hours and make sure you do not take too late at night or else you will be up often during the night to urinate 4. Follow a healthy diet and avoid fatty and fried foods. Its best to stay away from canned foods as well since they have a lot of salt. You should not eat more than 2 grams of salt daily or else this will worsening your swelling 5. Increase your physical activity as much as you can 6. If experiencing any concerning symptoms, please go to your nearest emergency department REFERRALS Other Referrals Aman Lieberman MD Specialty: Nephrology Office Address Aman Lieberman M.D., [facility] [id number] [address] Office GLADIS CUNHA MD Oct 24, 2018 11:02
[2018-10-24 11:07] VITALS: BP 150/63; PULSE 67; RESP 18
--- NOTE | 2018-10-24 13:30 | CONS ---
Assessment/Plan Assessment/Plan Assessment/Plan (Daily) 1. ALEX on CKD III due to hemodynamics from CHF 2.acute CHF, acute on chronic systolic + diastolic 3. 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 H/o DM II 5. H/o HL 6. h/O HTN 7. Anemia of CKD with Iron saturation 25% Plan: BUN/Cr 84/1.45, other electrolytes stable, plan is to d/c home with bumex 1 mg pO BID on discharge ECHO showed 55-60 %. Stage II diastolic dysfunction- stopped bumed, due to rising Cr, CXR showed pulmonary congestion with Pleural effusion s/p IV iron for iron deficiency Renal US showed No hydronephrosis or nephrolithiasis., Normal size kidneys, nor mal echogenicity will follow up Consultation Date/Type/Reason Admit Date/Time Oct 13, 2018 at 13:26 Initial Consult Date 10/14/18 Type of Consult NEPHROLOGY Requesting Provider: GLADIS CUNHA MD Date/Time of Note DATE: 10/24/18 TIME: 13:30 Exam/Review of Systems Exam Vitals Vital Signs Date Temp Pulse Resp B/P (MAP) Pulse Ox O2 O2 Flow FiO2 Time Delivery Rate 10/24/18 98.0 67 18 150/63 97 11:07 (92) 10/23/18 Room Air 17:00 Intake and Output 10/23/18 10/23/18 10/24/18 1515:00 23:00 07:00 IntakeIntake Total 300 ml 700 ml OutputOutput Total 500 ml 1050 ml 700 ml BalanceBalance -200 ml -350 ml -700 ml Results Result Diagram: 10/24/18 0717 10/24/18 0717 Results 24hrs Laboratory Tests Test 10/23/18 17:05 10/23/18 21:51 10/24/18 07:17 10/24/18 08:28 Bedside Glucose 112 119 94 White Blood Count 6.3 Red Blood Count 2.54 L Hemoglobin 7.4 L Hematocrit 23.2 L Mean Corpuscular 91.3 Volume Mean Corpuscular 29.1 Hemoglobin Mean Corpuscular 31.9 L Hemoglobin Concent Red Cell 14.5 Distribution Width Platelet Count 186 Mean Platelet Volume 12.3 H Immature 0.300 Granulocytes % Neutrophils % 63.8 Lymphocytes % 19.8 Monocytes % 9.8 Eosinophils % 5.7 Basophils % 0.6 Nucleated Red Blood 0.0 Cells % Immature 0.020 Granulocytes # Neutrophils # 4.0 Lymphocytes # 1.3 Monocytes # 0.6 Eosinophils # 0.4 Basophils # 0.0 Nucleated Red Blood 0.0 Cells # Sodium Level 141 Potassium Level 4.3 Chloride Level 105 Carbon Dioxide Level 27 Anion Gap 9 Blood Urea Nitrogen 84 H Creatinine 3.45 H Glucose Level 82 # Calcium Level 8.8 Phosphorus Level 5.0 H Magnesium Level 2.5 Albumin 3.4 Test 10/24/18 12:27 Bedside Glucose 162 Medications Medication Current Medications Amlodipine Besylate (Norvasc) 10 mg DAILY PO Last administered on 10/24/18at 08:26; Admin Dose 10 MG; Start 10/14/18 at 09:00 Atorvastatin Calcium (Lipitor) 40 mg QHS PO Last administered on 10/23/18at 21:52; Admin Dose 40 MG; Start 10/13/18 at 21:00 Carvedilol (Coreg) 25 mg BID PO Last administered on 10/24/18at 08:26; Admin Dose 25 MG; Start 10/13/18 at 21:00 Ferrous Sulfate (Ferrous Sulfate (Ec)) 325 mg DAILY PO Last administered on 10/18/18at 08:15; Admin Dose 325 MG; Start 10/14/18 at 09:00; Status Hold Hydralazine HCl (Apresoline) 100 mg BID PO Last administered on 10/24/18at 08:25; Admin Dose 100 MG; Start 10/13/18 at 21:00 IV Flush (NS 3 ml) 3 ml PER PROTOCOL IV ; Start 10/13/18 at 14:00 Ondansetron HCl (Zofran Inj) 4 mg Q6H PRN IV NAUSEA/VOMITING; Start 10/13/18 at 14:00 Nitroglycerin (Nitroglycerin (Sl Tab) 0.4 Mg) 1 tab Q5M PRN SL .CHEST PAIN; Start 10/13/18 at 14:00 Acetaminophen (Tylenol Tab) 650 mg Q6H PRN PO .PAIN 1-3 OR TEMP; Start 10/13/18 at 14:00 Docusate Sodium (Colace) 100 mg Q12H PRN PO .CONSTIPATION; Start 10/13/18 at 14:00 Magnesium Hydroxide (Milk Of Mag) 30 ml DAILY PRN PO .CONSTIPATION; Start 10/13/18 at 14:00 Pantoprazole (Protonix Tab) 40 mg DAILY@06 PO Last administered on 10/24/18at 05:46; Admin Dose 40 MG; Start 10/14/18 at 06:00 Heparin Sodium (Porcine) (Heparin (5000 Units/1ml)) 5,000 unit Q12 SC Last administered on 10/24/18at 08:30; Admin Dose 5,000 UNIT; Start 10/13/18 at 21:00 Miscellaneous Information 1 ea NOTE XX ; Start 10/13/18 at 14:30 Glucose (Glutose) 15 gm Q15M PRN PO DECREASED GLUCOSE; Start 10/13/18 at 14:30 Glucose (Glutose) 22.5 gm Q15M PRN PO DECREASED GLUCOSE; Start 10/13/18 at 14:30 Dextrose (D50w Syringe) 25 ml Q15M PRN IV DECREASED GLUCOSE; Start 10/13/18 at 14:30 Dextrose (D50w Syringe) 50 ml Q15M PRN IV DECREASED GLUCOSE; Start 10/13/18 at 14:30 Glucagon (Glucagen) 1 mg Q15M PRN IM DECREASED GLUCOSE; Start 10/13/18 at 14:30 Glucose (Glutose) 15 gm Q15M PRN BUCCAL DECREASED GLUCOSE; Start 10/13/18 at 14:30 Nicotine (Nicoderm 7 Mg/ 24 Hr) 1 patch DAILY TRANSDERM Last administered on 10/24/18at 08:26; Admin Dose 1 PATCH; Start 10/13/18 at 16:00 Insulin Aspart (Novolog Insulin Pen) NOVOLOG *MILD* ALGORITHM WITH MEALS BEDTIME SC Last administered on 10/24/18at 12:44; Admin Dose 1 UNIT; Start 10/13/18 at 18:00 Calcium Acetate (Phoslo) 667 mg WITH MEALS PO Last administered on 10/24/18at 12:29; Admin Dose 667 MG; Start 10/16/18 at 07:55 Furosemide (Lasix) 20 mg BID DIURETICS IV Last administered on 10/24/18at 05:47; Admin Dose 20 MG; Start 10/22/18 at 08:30 Insulin Glargine (Lantus) 8 units QHS SC Last administered on 10/23/18at 22:35; Admin Dose 8 UNITS; Start 10/22/18 at 21:00 ANAMARIA SEAMAN MD 11, 2019 13:30
[2018-10-24] MEDS ORDERED: BUME1TAB PO (13:39)
--- NOTE | 2018-10-24 13:40 | PDOCDIS ---
Discharge Instructions DIAGNOSIS Discharge Diagnosis 1. Acute on chronic heart failure- improving 2. Lower extremity swelling, bilateral- improving 3. Acute kidney injury on Chronic kidney disease 4. Anemia of chronic disease 5. Diabetes Mellitus 6. HTN CONDITION [id number] Patient Condition: [id number] Stable HOME CARE INSTRUCTIONS: [id number] Diet Instructions: [id number] FOLLOW UP/APPOINTMENTS Follow-up Plan 1. Follow up with your primary care physician in 1-2 weeks 2. Follow up with Dr. Lieberman for monitoring of your renal function. You will need to call his office to make an appointment 3. Continue taking Bumex twice a day to help keep the fluid off your legs. The medication lasts 6 hours and make sure you do not take too late at night or else you will be up often during the night to urinate 4. Follow a healthy diet and avoid fatty and fried foods. Its best to stay away from canned foods as well since they have a lot of salt. You should not eat more than 2 grams of salt daily or else this will worsening your swelling 5. Increase your physical activity as much as you can 6. If experiencing any concerning symptoms, please go to your nearest emergency department REFERRALS Other Referrals Aman Lieberman MD Specialty Nephrology Comments Office Address Aman Liebemran M.D., [facility] [id number] [address] Office GLADIS CUNHA MD Oct 24, 2018 13:40
--- NOTE | 2018-10-24 15:32 | DS ---
Date/Time of Note Date/Time of Note DATE: 10/24/18 TIME: 15:27 Discharge Summary Admission/Discharge Info Admit Date/Time Oct 13, 2018 at 13:26 Discharge Date/Time 10/24/18 Discharge Diagnosis 1. Acute on chronic heart failure- improving 2. Lower extremity swelling, bilateral- improving 3. Acute kidney injury on Chronic kidney disease 4. Anemia of chronic disease 5. Diabetes Mellitus 6. HTN Patient Condition: Stable Consults Nephrology- Dr. Aman Lieberman Cardiology- Dr. Gutiérrez Hx of Present Illness 48 yo M PMH diabetes and hypertension presented to ED with worsening shortness of breath and difficulty ambulating. Patient states he was recently at [facility] for one week and denies being told anything was wrong with his heart. He has been home for the past week and still has not been feeling well. He denies having any renal issues and states he's compliant with whatever medications are on his list. He is not familiar with why he is on each of his medications. He does admit to lower extremity swelling that has been worsening over the past year. Denies any chest pain, dizziness, nausea, vomiting, fevers, chills, abdominal pain, or urinary issues. Does complain of constipation but last BM was yesterday. Patient states glucose is well controlled at home as well. Hospital Course Patient was admitted for treatment of bilateral lower extremity swelling secondary to acute CHF exacerbation. Patient was found with elevated BNP but no effusion or congestion on CXR. Cardiology was consulted for medication management. Nephrology was consulted given findings of ALEX and need for assistance with diuretic management. US of lower extremities were performed with no findings of DVT. Patient was continued on diuretics and I/O and renal function was monitored. Patients lower extremity swelling improved significantly but renal function did not improve. Patient still was able to uri zak without issues and no signs of confusion. Patient was found to be anemia and given IV iron. His presenting symptoms improved and he was cleared from cardiology and nephrology standpoint for discharge home with outpatient follow up. Patient was counseled regarding proper diet and medication compliance. Patient was discharged home in good condition. Home Meds Active Scripts Bumetanide* (Bumetanide*) 1 Mg Tablet, 1 MG PO BID for 30 Days, #60 TAB Prov:GLADIS CUNHA MD 10/24/18 Calcium Acetate* (Calcium Acetate*) 667 Mg Capsule, 667 MG PO WITH MEALS for 30 Days, #90 CAP Prov:GLADIS CUNHA MD 10/24/18 Reported Medications Ergocalciferol (Vitamin D2) (VITAMIN D2) 50,000 Unit Capsule, 26940 UNIT PO EVERY SUNDAY, CAP 10/13/18 Amlodipine Besylate* (Amlodipine Besylate*) 10 Mg Tablet, 10 MG PO DAILY, #30 TAB 10/13/18 Atorvastatin* (Atorvastatin*) 40 Mg Tablet, 40 MG PO QHS, #30 TAB 10/13/18 Metformin Hcl* (Metformin Hcl* ER) 1,000 Mg Tab.er.24, 1000 MG PO BID, #30 TAB 10/13/18 Ferrous Sulfate* (Ferrous Sulfate*) 325 Mg Tabec, 325 MG PO DAILY, TAB 10/13/18 Hydralazine Hcl* (Hydralazine Hcl*) 100 Mg Tablet, 100 MG PO BID, #90 TAB 10/13/18 Insulin Glargine,Hum.rec.anlog (Basaglar Kwikpen U-100) 100 Unit/1 Ml Insuln.pen, 8 UNIT SC QHS, EA 10/13/18 Carvedilol* (Carvedilol*) 25 Mg Tablet, 25 MG PO BID, #60 TAB 10/13/18 Follow-up Plan 1. Follow up with your primary care physician in 1-2 weeks 2. Follow up with Dr. Lieberman for monitoring of your renal function. You will need to call his office to make an appointment 3. Continue taking Bumex twice a day to help keep the fluid off your legs. The medication lasts 6 hours and make sure you do not take too late at night or else you will be up often during the night to urinate 4. Follow a healthy diet and avoid fatty and fried foods. Its best to stay away from canned foods as well since they have a lot of salt. You should not eat more than 2 grams of salt daily or else this will worsening your swelling 5. Increase your physical activity as much as you can 6. If experiencing any concerning symptoms, please go to your nearest emergency department Primary Care Provider [facility]. Time spent on discharge: > 30 minutes Pending Labs Laboratory Tests Test 10/23/18 17:05 10/23/18 21:51 10/24/18 07:17 10/24/18 08:28 Bedside 112 119 94 Glucose mg/dL (70-220) mg/dL (70-220) mg/dL (70-220) White Blood 6.3 Count 10^3/ul (4.8-1 0.8) Red Blood 2.54 Count 10^6/ul (4.70- 6.10) Hemoglobin 7.4 g/dl (14.0-18. 0) Hematocrit 23.2 % (42.0-52.0) Mean 91.3 Corpuscular fl (82.0-101.0 Volume ) Mean 29.1 Corpuscular pg (29.0-33.0) Hemoglobin Mean 31.9 Corpuscular g/dl (32.0-37. Hemoglobin Conc 0) ent Red Cell 14.5 Distribution % (11.5-14.5) Width Platelet Count 186 10^3/UL (140-4 15) Mean Platelet 12.3 Volume fl (7.4-10.4) Immature 0.300 Granulocytes % % (0.001-0.429 ) Neutrophils % 63.8 % (39.0-77.0) Lymphocytes % 19.8 % (15.0-51.0) Monocytes % 9.8 % (0.0-11.0) Eosinophils % 5.7 % (0.0-7.0) Basophils % 0.6 % (0.0-2.0) Nucleated Red 0.0 Blood Cells % /100WBC (0.0-0 .0) Immature 0.020 Granulocytes # 10^3/ul (0.0-0 .031) Neutrophils # 4.0 10^3/ul (1.6-7 .5) Lymphocytes # 1.3 10^3/ul (0.8-2 .9) Monocytes # 0.6 10^3/ul (0.3-0 .9) Eosinophils # 0.4 10^3/ul (0.0-0 .5) Basophils # 0.0 10^3/ul (0.0-0 .1) Nucleated Red 0.0 Blood Cells # 10^3/ul (0.0-0 .0) Sodium Level 141 mmol/L (135-14 4) Potassium 4.3 Level mmol/L (3.5-5. 1) Chloride Level 105 mmol/L (97-110 ) Carbon Dioxide 27 Level mmol/L (21-31) Anion Gap 9 (5-13) Blood Urea 84 Nitrogen mg/dl (7-20) Creatinine 3.45 mg/dl (0.61-1. 24) Glucose Level 82 mg/dl (70-220) Calcium Level 8.8 mg/dl (8.4-10. 2) Phosphorus 5.0 Level mg/dl (2.5-4.9 ) Magnesium 2.5 Level mg/dl (1.7-2.5 ) Albumin 3.4 g/dl (3.3-4.9) Test 10/24/18 12:27 Bedside 162 Glucose mg/dL (70-220) GLADIS CUNHA MD Oct 24, 2018 15:32
[2018-10-24 15:41] VITALS: BP 128/59; PULSE 69; RESP 18
[2018-10-24] MEDS ORDERED: BUMETANIDE 1 MG TAB PO SCH (18:00)
== END 2018-10-24 19:18 | disposition home or self-care (01) | DRG 291 ==
LOC: E/R 11:57 → TEL 13:26
PROVIDERS: ADMIT Internal Medicine; ATTEND Internal Medicine
DX: I13.0 Hypertensive heart and chronic kidney disease with heart failure and stage 1 through stage 4 chronic kidney disease, or unspecified chronic kidney disease (principal); I50.33 Acute on chronic diastolic (congestive) heart failure; N17.9 Acute kidney failure, unspecified; E11.22 Type 2 diabetes mellitus with diabetic chronic kidney disease; F17.200 Nicotine dependence, unspecified, uncomplicated; N18.9 Chronic kidney disease, unspecified; D63.8 Anemia in other chronic diseases classified elsewhere; K59.00 Constipation, unspecified; F17.210 Nicotine dependence, cigarettes, uncomplicated; Z79.4 Long term (current) use of insulin
CPT/HCPCS: 36415; 71045; 76775; 80048; 80053; 80069; 81003; 82550; 82553; 82570; 82962; 83036; 83540; 83735; 83880; 84100; 84300; 84484; 84560; 85025; 85610; 85730; 89190; 93005; 93306; 93970; 96374; 97110; 97116; 97161; 97165; J1644; J1815; J1940; J2916; P9047

== ENCOUNTER 2018-11-15 17:40 | Inpatient (IN) | payer OTHER ==
[~2018-11-15] VITALS: Ht 170.2 cm; Wt 94.0 kg
[~2018-11-15 17:40] MED LIST changes: +ACET325T33 PO; +AMLO-147 PO; +ATOR40TA68 PO; +BENZ1LOZ4 MT; +BUME1TAB PO; +CALC667C PO; +CARV25TA79 PO; +ERGO500013 PO; +FER325 PO; +HYDR100T25 PO; +INSU100I33 SC; -LANT3I SC; +LISI-471 PO; +METO-319 PO; -MTF1000T PO
[2018-11-15] MEDS ORDERED: ASPIRIN 81 MG TAB PO STA (17:57)
[2018-11-15] MEDS ORDERED: FUROSEMIDE 40 MG INJ IV STA (17:57)
[2018-11-15] MEDS ORDERED: NITROGLYCERIN 2% 1 GM OINT PKT TD STA (17:57)
--- NOTE | 2018-11-15 19:23 | ERD ---
ER Documentation Chief Complaint Chief Complaint SOB X 2 DAYS HPI 48-year-old male with a history of CHF with recent hospitalizations for volume overload. The patient presents because of worsening shortness of breath, bilateral lower extremity, dyspnea on exertion, PND and orthopnea. Patient states that his medications have been maximized and he still has worsening symptoms. 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 No fevers or chills, pleuritic pain or chest pressure. ROS All systems reviewed and are negative except as per history of present illness. Medications Home Meds Active Scripts Bumetanide* (Bumetanide*) 1 Mg Tablet, 1 MG PO BID for 30 Days, #60 TAB Prov:GLADIS CUNHA MD 10/24/18 Calcium Acetate* (Calcium Acetate*) 667 Mg Capsule, 667 MG PO WITH MEALS for 30 Days, #90 CAP Prov:GLADIS CUNHA MD 10/24/18 Reported Medications Ergocalciferol (Vitamin D2) (VITAMIN D2) 50,000 Unit Capsule, 18439 UNIT PO EVERY SUNDAY, CAP 10/13/18 Amlodipine Besylate* (Amlodipine Besylate*) 10 Mg Tablet, 10 MG PO DAILY, #30 TAB 10/13/18 Atorvastatin* (Atorvastatin*) 40 Mg Tablet, 40 MG PO QHS, #30 TAB 10/13/18 Ferrous Sulfate* (Ferrous Sulfate*) 325 Mg Tabec, 325 MG PO DAILY, TAB 10/13/18 Hydralazine Hcl* (Hydralazine Hcl*) 100 Mg Tablet, 100 MG PO BID, #90 TAB 10/13/18 Insulin Glargine,Hum.rec.anlog (Basagltimbo Millerikpen U-100) 100 Unit/1 Ml Insuln.pen, 8 UNIT SC QHS, EA 10/13/18 Carvedilol* (Carvedilol*) 25 Mg Tablet, 25 MG PO BID, #60 TAB 10/13/18 Allergies Allergies: Coded Allergies: No Known Allergy (Unverified , 11/15/18) PMhx/Soc History of Surgery: No Anesthesia Reaction: No Hx Neurological Disorder: No Hx Respiratory Disorders: No Hx Cardiac Disorders: Yes (CHF) Hx Psychiatric Problems: No Hx Miscellaneous Medical Probl: Yes (pls see EMR) Hx Alcohol Use: No Hx Substance Use: No Hx Tobacco Use: Yes Smoking Status: Current every day smoker FmHx Family History: No diabetes Physical Exam Vitals Vital Signs Date Temp Pulse Resp B/P (MAP) Pulse Ox O2 O2 Flow FiO2 Time Delivery Rate 11/15/18 74 18 164/74 100 Room Air 18:57 (104) 11/15/18 98.1 83 18 122/59 99 17:43 (80) Physical Exam General: Well developed, well nourished, no acute distress Head: Normocephalic, atraumatic. Eyes: Pupils equally reactive, EOM intact ENT: Moist mucous membranes Neck: Supple, no lymphadenopathy Respiratory: Rales at the bases bilaterally Cardiovascular: RRR, no murmurs, rubs, or gallops Abdominal: Soft, non-tender, non-distended, no peritoneal signs : Deferred MSK: Significant bilateral lower extremity pitting edema Neurologic: Alert and oriented, moving all extremities, normal speech, no focal weakness, no cerebellar signs Skin: No rash Psych: Normal mood Result Diagram: 11/15/18190211/15/181902 Results 24 hrs Laboratory Tests Test 11/15/18 19:03 White Blood Count 6.6 10^3/ul Red Blood Count 2.52 10^6/ul Hemoglobin 7.6 g/dl Hematocrit 23.1 % Mean Corpuscular Volume 91.7 fl Mean Corpuscular Hemoglobin 30.2 pg Mean Corpuscular Hemoglobin Concent 32.9 g/dl Red Cell Distribution Width 13.7 % Platelet Count 157 10^3/UL Mean Platelet Volume 11.6 fl Immature Granulocytes % 0.500 % Neutrophils % 69.0 % Lymphocytes % 17.7 % Monocytes % 7.5 % Eosinophils % 4.7 % Basophils % 0.6 % Nucleated Red Blood Cells % 0.0 /100WBC Immature Granulocytes # 0.030 10^3/ul Neutrophils # 4.5 10^3/ul Lymphocytes # 1.2 10^3/ul Monocytes # 0.5 10^3/ul Eosinophils # 0.3 10^3/ul Basophils # 0.0 10^3/ul Nucleated Red Blood Cells # 0.0 10^3/ul Sodium Level 142 mmol/L Potassium Level 5.1 mmol/L Chloride Level 116 mmol/L Carbon Dioxide Level 19 mmol/L Anion Gap 7 Blood Urea Nitrogen 48 mg/dl Creatinine 2.78 mg/dl Est Glomerular Filtrat Rate mL/min 25 mL/min Glucose Level 160 mg/dl Calcium Level 8.1 mg/dl Troponin I < 0.012 ng/ml B-Type Natriuretic Peptide 5730 PG/ML Current Medications Medications Dose Sig/Meryl Start Time Status Last (Trade) Ordered Route PRN Stop Time Admin Dose Reason Admin Aspirin 162 mg ONCE STAT 11/15/18 DC 11/15/18 (Aspirin) PO 17:57 11/15/18 18:55 17:58 1 inch ONCE STAT 11/15/18 DC 11/15/18 Nitroglycerin TD 17:57 11/15/18 18:55 17:58 (Nitroglyceri n 2% Oint) Furosemide 40 mg ONCE STAT 11/15/18 DC 11/15/18 (Lasix) IV 17:57 11/15/18 18:55 17:58 Ondansetron 4 mg ER BRIDGE 11/15/18 HCl (Zofran PRN IV 20:00 11/16/18 Inj) NAUSEA/VOMITI 19:59 NG 650 mg ER BRIDGE 11/15/18 Acetaminophen PRN PO 20:00 11/16/18 (Tylenol .MILD PAIN 19:59 Tab) 1-3 OR TEMP Procedures/MDM EKG, MONITORS, & DIAGNOSTIC IMAGING: EKG: I reviewed and interpreted a 12-lead EKG. Rhythm: Normal sinus rhythm ST Changes: No contiguous ST segment elevations T waves: No contiguous T wave inversions Impression: No evidence of acute cardiac ischemia IMPRESSION: Improved aeration with residual right basilar airspace opacity representing atelectasis or pneumonia. LAB INTERPRETATION: I reviewed the laboratory testing and it shows increased BNP from baseline MEDICAL DECISION MAKING: Patient presents with clinical signs and symptoms and finding consistent with likely CHF exacerbation. The patient has rales, dyspnea on exertion, orthopnea and bilateral lower extremity swelling. This is consistent with volume overload that would benefit from preload and afterload reduction. Patient recently had hospitalization and it appears that he is optimized on outpatient medications. Unfortunately repeat hospitalization is likely necessary. Patient is protecting his airway and does not require positive pressure ventilation. ER COURSE: * Patient was given nitroglycerin, Lasix. * BNP increasing. Patient to be admitted for optimization of medications. Diuresis. CONSULTATION: None DISPOSITION PLAN: Telemetry Accepting care team and consultations: I discussed the current laboratory data, diagnostic imaging and emergency care provided. Admitting team: Dr. Swanson Admitting team indication: Insurance directed Departure Diagnosis: Primary Impression: Acute exacerbation of CHF (congestive heart failure) Heart failure type: unspecified Qualified Codes: I50.9 - Heart failure, unspecified Additional Impressions: Acute renal insufficiency Anemia Anemia type: unspecified type Qualified Codes: D64.9 - Anemia, unspecified Condition: Stable CONSUELO MORGAN MD Nov 15, 2018 19:23
[2018-11-15] MEDS ORDERED: ACETAMINOPHEN 325 MG TAB PO PRN ×2 (20:00→23:00)
[2018-11-15] MEDS ORDERED: ONDANSETRON 4 MG INJ IV PRN ×2 (20:00→23:00)
[2018-11-15 21:42] VITALS: BP 176/92; PULSE 75; RESP 18
[2018-11-15 21:44] VITALS: Ht 170.2 cm; Wt 94.0 kg
[2018-11-15] MEDS ORDERED: ALBUTEROL/IPRATROPIUM (NEB) 3 ML AMP HHN PRN (23:00)
[2018-11-15] MEDS ORDERED: NACL 0.9% 3 ML SYG IV SCH (23:00)
[2018-11-15 23:24] VITALS: BP 159/78; PULSE 73; RESP 19
[2018-11-16 03:22] VITALS: BP 153/73; PULSE 68; RESP 19
[2018-11-16 07:25] VITALS: BP 177/87; PULSE 83; RESP 20
[2018-11-16] MEDS: CALCIUM ACETATE 667 MG CAP PO SCH ×3 (07:51→17:26)
--- NOTE | 2018-11-16 07:55 | HP ---
Date/Time of Note Date/Time of Note DATE: 11/16/18 TIME: 07:51 Assessment/Plan VTE Prophylaxis Risk score (from [facility])>0 risk: 4 SCD applied (from [facility]): Yes Pharmacological prophylaxis: other Pharm contraindication: other (Severe anemia) Lines/Catheters IV Catheter Type [facility]from [facility] Saline Lock Assessment/Plan Assessment/Plan 1. Acute on chronic diastolic CHF -We will diurese -Continue home cardiac meds 2. CKD: Improved from last discharge day -Monitor closely -Nephrology consult 3. Type 2 diabetes: Continue meds 4. Hypertension: Adjust BP meds as needed 5. Anemia of chronic disease: Hemoglobin 7.6, but stable -will consider a transfusion during this hospitalization -Epogen per nephrology Result Diagram: 11/16/18 0545 11/15/18 1903 Results 24hrs Laboratory Tests Test 11/15/18 19:03 11/15/18 23:50 11/16/18 05:45 White Blood Count 6.6 6.1 Red Blood Count 2.52 L 2.56 L Hemoglobin 7.6 L 7.6 L Hematocrit 23.1 L 23.8 L Mean Corpuscular Volume 91.7 93.0 Mean Corpuscular Hemoglobin 30.2 29.7 Mean Corpuscular Hemoglobin Concent 32.9 31.9 L Red Cell Distribution Width 13.7 13.7 Platelet Count 157 169 Mean Platelet Volume 11.6 H 10.8 H Immature Granulocytes % 0.500 H 0.300 Neutrophils % 69.0 65.7 Lymphocytes % 17.7 17.9 Monocytes % 7.5 10.2 Eosinophils % 4.7 5.4 Basophils % 0.6 0.5 Nucleated Red Blood Cells % 0.0 0.0 Immature Granulocytes # 0.030 0.020 Neutrophils # 4.5 4.0 Lymphocytes # 1.2 1.1 Monocytes # 0.5 0.6 Eosinophils # 0.3 0.3 Basophils # 0.0 0.0 Nucleated Red Blood Cells # 0.0 0.0 Sodium Level 142 Potassium Level 5.1 Chloride Level 116 H Carbon Dioxide Level 19 L Anion Gap 7 Blood Urea Nitrogen 48 H Creatinine 2.78 H Est Glomerular Filtrat Rate mL/min 25 L Glucose Level 160 Calcium Level 8.1 L Troponin I < 0.012 < 0.012 < 0.012 B-Type Natriuretic Peptide 5730 H Creatine Kinase 432 H 352 H Creatine Kinase Index 1.4 1.3 Creatinine Kinase MB (Mass) 5.93 H 4.68 H HPI/ROS Admit Date/Time Admit Date/Time Nov 15, 2018 at 19:49 Hx of Present Illness Patient is a 48-year-old male with a history of CHF, type 2 diabetes, hypertension, CKD, anemia of chronic disease who presents the ER complaining of shortness of breath and bilateral lower extremity swelling. Patient was admitted here 3 weeks ago and was treated for a CHF exacerbation. At that time 2D echo showed an EF of 55 to 60% and stage II diastolic dysfunction. When presents the ER, initial vital was stable. Chest x-ray shows improved aeration with residual right basilar airspace opacity representing atelectasis or pneumonia. PMH/Family/Social Past Medical History Medical History: other (See HPI) Medications Current Medications Ondansetron HCl (Zofran Inj) 4 mg ER BRIDGE PRN IV NAUSEA/VOMITING; Start 11/15/18 at 20:00; Stop 11/16/18 at 19:59 Acetaminophen (Tylenol Tab) 650 mg ER BRIDGE PRN PO .MILD PAIN 1-3 OR TEMP; Start 11/15/18 at 20:00; Stop 11/16/18 at 19:59 IV Flush (NS 3 ml) 3 ml PER PROTOCOL IV ; Start 11/15/18 at 23:00 Ondansetron HCl (Zofran Inj) 4 mg Q6H PRN IV NAUSEA/VOMITING; Start 11/15/18 at 23:00 Acetaminophen (Tylenol Tab) 650 mg Q6H PRN PO .PAIN 1-3 OR TEMP; Start 11/15/18 at 23:00 Albuterol/ Ipratropium (Duoneb) 3 ml Q2H RESP THERAPY PRN HHN SHORTNESS OF BREATH; Start 11/15/18 at 23:00 Amlodipine Besylate (Norvasc) 10 mg DAILY PO ; Start 11/16/18 at 09:00 Atorvastatin Calcium (Lipitor) 40 mg QHS PO ; Start 11/16/18 at 21:00 Bumetanide (Bumex) 1 mg BID PO ; Start 11/16/18 at 09:00 Calcium Acetate (Phoslo) 667 mg WITH MEALS PO ; Start 11/16/18 at 07:55 Ferrous Sulfate (Ferrous Sulfate (Ec)) 325 mg DAILY PO ; Start 11/16/18 at 09:00 Coded Allergies: No Known Allergy (Unverified , 11/15/18) Past Surgical History Past Surgical Hx: other (See HPI) Family History Significant Family History: no pertinent family hx Social History Alcohol Use: none Smoking Status: Current some day smoker Drug Use: none Exam/Review of Systems Vital Signs Vitals Vital Signs Date Temp Pulse Resp B/P (MAP) Pulse Ox O2 O2 Flow FiO2 Time Delivery Rate 11/16/18 97.7 83 20 177/87 95 Room Air 07:25 (117) Intake and Output 11/15/18 11/15/18 11/16/18 1515:00 23:00 07:00 IntakeIntake Total 250 ml OutputOutput Total 700 ml BalanceBalance -450 ml Exam Constitutional: other (No acute distress) Head: normocephalic, atraumatic Eyes: EOMI, PERRL Respiratory: other Cardiovascular: regular rate and rhythm (Decreased breath sounds at the bases) Gastrointestinal: soft Extremities: edema NANCY ZULETA MD Nov 16, 2018 07:55
[2018-11-16] MEDS: AMLODIPINE 10 MG TAB PO SCH (08:19)
[2018-11-16] MEDS: BUMETANIDE 1 MG TAB PO SCH ×2 (08:19→20:44)
[2018-11-16] MEDS: FERROUS SULFATE (EC) 325 MG TAB PO SCH (08:19)
--- NOTE | 2018-11-16 10:53 | PN ---
Date/Time of Note Date/Time of Note DATE: 11/16/18 TIME: 10:45 Assessment/Plan VTE Prophylaxis Risk score (from Ns)>0 risk: 4 SCD applied (from Ns): Yes Pharmacological prophylaxis: other Lines/Catheters [facility] Saline Lock Assessment/Plan Hospital Course S: Patient with some cough symptoms and some chest pain. No fever chills. O: VS- see below PE: Constitutional: lying in bed, no acute distress Head: normocephalic, atraumatic Eyes: EOMI, PERRL Respiratory: other Cardiovascular: regular rate and rhythm (Decreased breath sounds at the bases) Gastrointestinal: soft Extremities: edema 2D echo October 13, 2018: Conclusions: Normal left ventricular systolic function. Normal left ventricular cavity size. Mild concentric left ventricular hypertrophy. Ejection fraction is visually estimated at 55-60 %. Tissue Doppler/Mitral Doppler indices are consistent with pseudonormalization with mildly elevated left atrial pressure (Stage II diastolic dysfunction). No significant valvular stenosis or regurgitation seen. Small pericardial effusion. Unable to obtain RVSP due to minimal presence of tricuspid regurgitation. Normal size and normal respiratory collapse consistent with normal right atrial pressure. Assessment/Plan: 48-year-old male who presents with: 1. Acute on chronic diastolic CHF: Slowly improving. Echocardiogram results from September 2018 noted above -Continue with diurese, consider switching to IV -Continue home cardiac meds 2. CKD: Improved from last discharge day -Monitor closely -Consider nephrology consult 3. Type 2 diabetes: Continue meds, monitor sugars 4. Hypertension: Adjust BP meds as needed 5. Anemia of chronic disease: Hemoglobin 7.6, but stable -Monitor CBC will consider a transfusion during this hospitalization -Epogen per nephrology Result Diagram: 11/16/18 0545 11/16/18 0545 Results 24hrs Laboratory Tests Test 11/15/18 19:03 11/15/18 23:50 11/16/18 05:45 White Blood Count 6.6 6.1 Red Blood Count 2.52 L 2.56 L Hemoglobin 7.6 L 7.6 L Hematocrit 23.1 L 23.8 L Mean Corpuscular Volume 91.7 93.0 Mean Corpuscular Hemoglobin 30.2 29.7 Mean Corpuscular Hemoglobin Concent 32.9 31.9 L Red Cell Distribution Width 13.7 13.7 Platelet Count 157 169 Mean Platelet Volume 11.6 H 10.8 H Immature Granulocytes % 0.500 H 0.300 Neutrophils % 69.0 65.7 Lymphocytes % 17.7 17.9 Monocytes % 7.5 10.2 Eosinophils % 4.7 5.4 Basophils % 0.6 0.5 Nucleated Red Blood Cells % 0.0 0.0 Immature Granulocytes # 0.030 0.020 Neutrophils # 4.5 4.0 Lymphocytes # 1.2 1.1 Monocytes # 0.5 0.6 Eosinophils # 0.3 0.3 Basophils # 0.0 0.0 Nucleated Red Blood Cells # 0.0 0.0 Sodium Level 142 142 Potassium Level 5.1 4.9 Chloride Level 116 H 116 H Carbon Dioxide Level 19 L 20 L Anion Gap 7 6 Blood Urea Nitrogen 48 H 47 H Creatinine 2.78 H 2.81 H Est Glomerular Filtrat Rate mL/min 25 L 24 L Glucose Level 160 89 # Calcium Level 8.1 L 8.2 L Troponin I < 0.012 < 0.012 < 0.012 B-Type Natriuretic Peptide 5730 H Creatine Kinase 432 H 352 H Creatine Kinase Index 1.4 1.3 Creatinine Kinase MB (Mass) 5.93 H 4.68 H Magnesium Level 2.6 H Total Bilirubin 0.4 Direct Bilirubin 0.00 Indirect Bilirubin 0.4 Aspartate Amino Transf (AST/SGOT) 18 Alanine Aminotransferase (ALT/SGPT) 25 Alkaline Phosphatase 128 H Total Protein 6.0 L Albumin 2.9 L Globulin 3.10 Albumin/Globulin Ratio 0.93 Exam/Review of Systems Exam Vitals Vital Signs Date Temp Pulse Resp B/P (MAP) Pulse Ox O2 O2 Flow FiO2 Time Delivery Rate 11/16/18 97.7 83 20 177/87 95 Room Air 07:25 (117) Intake and Output 11/15/18 11/15/18 11/16/18 1515:00 23:00 07:00 IntakeIntake Total 250 ml OutputOutput Total 700 ml BalanceBalance -450 ml Results Results 24hrs Laboratory Tests Test 11/15/18 19:03 11/15/18 23:50 11/16/18 05:45 White Blood Count 6.6 6.1 Red Blood Count 2.52 L 2.56 L Hemoglobin 7.6 L 7.6 L Hematocrit 23.1 L 23.8 L Mean Corpuscular Volume 91.7 93.0 Mean Corpuscular Hemoglobin 30.2 29.7 Mean Corpuscular Hemoglobin Concent 32.9 31.9 L Red Cell Distribution Width 13.7 13.7 Platelet Count 157 169 Mean Platelet Volume 11.6 H 10.8 H Immature Granulocytes % 0.500 H 0.300 Neutrophils % 69.0 65.7 Lymphocytes % 17.7 17.9 Monocytes % 7.5 10.2 Eosinophils % 4.7 5.4 Basophils % 0.6 0.5 Nucleated Red Blood Cells % 0.0 0.0 Immature Granulocytes # 0.030 0.020 Neutrophils # 4.5 4.0 Lymphocytes # 1.2 1.1 Monocytes # 0.5 0.6 Eosinophils # 0.3 0.3 Basophils # 0.0 0.0 Nucleated Red Blood Cells # 0.0 0.0 Sodium Level 142 142 Potassium Level 5.1 4.9 Chloride Level 116 H 116 H Carbon Dioxide Level 19 L 20 L Anion Gap 7 6 Blood Urea Nitrogen 48 H 47 H Creatinine 2.78 H 2.81 H Est Glomerular Filtrat Rate mL/min 25 L 24 L Glucose Level 160 89 # Calcium Level 8.1 L 8.2 L Troponin I < 0.012 < 0.012 < 0.012 B-Type Natriuretic Peptide 5730 H Creatine Kinase 432 H 352 H Creatine Kinase Index 1.4 1.3 Creatinine Kinase MB (Mass) 5.93 H 4.68 H Magnesium Level 2.6 H Total Bilirubin 0.4 Direct Bilirubin 0.00 Indirect Bilirubin 0.4 Aspartate Amino Transf (AST/SGOT) 18 Alanine Aminotransferase (ALT/SGPT) 25 Alkaline Phosphatase 128 H Total Protein 6.0 L Albumin 2.9 L Globulin 3.10 Albumin/Globulin Ratio 0.93 Medications Medication Current Medications Ondansetron HCl (Zofran Inj) 4 mg ER BRIDGE PRN IV NAUSEA/VOMITING; Start 11/15/18 at 20:00; Stop 11/16/18 at 19:59 Acetaminophen (Tylenol Tab) 650 mg ER BRIDGE PRN PO .MILD PAIN 1-3 OR TEMP; Start 11/15/18 at 20:00; Stop 11/16/18 at 19:59 IV Flush (NS 3 ml) 3 ml PER PROTOCOL IV ; Start 11/15/18 at 23:00 Ondansetron HCl (Zofran Inj) 4 mg Q6H PRN IV NAUSEA/VOMITING; Start 11/15/18 at 23:00 Acetaminophen (Tylenol Tab) 650 mg Q6H PRN PO .PAIN 1-3 OR TEMP; Start 11/15/18 at 23:00 Albuterol/ Ipratropium (Duoneb) 3 ml Q2H RESP THERAPY PRN HHN SHORTNESS OF BREATH; Start 11/15/18 at 23:00 Amlodipine Besylate (Norvasc) 10 mg DAILY PO Last administered on 11/16/18at 08:19; Admin Dose 10 MG; Start 11/16/18 at 09:00 Atorvastatin Calcium (Lipitor) 40 mg QHS PO ; Start 11/16/18 at 21:00 Bumetanide (Bumex) 1 mg BID PO Last administered on 11/16/18at 08:19; Admin Dose 1 MG; Start 11/16/18 at 09:00 Calcium Acetate (Phoslo) 667 mg WITH MEALS PO Last administered on 11/16/18at 07 :51; Admin Dose 667 MG; Start 11/16/18 at 07:55 Ferrous Sulfate (Ferrous Sulfate (Ec)) 325 mg DAILY PO Last administered on 11/16/18at 08:19; Admin Dose 325 MG; Start 11/16/18 at 09:00 ALMA ROSA RODRIGUEZ Nov 16, 2018 10:53
[2018-11-16] MEDS ORDERED: CEPASTAT LOZENGE MT PRN (11:00)
[2018-11-16] MEDS ORDERED: hydrALAzine 20 MG INJ IV PRN (11:00)
[2018-11-16 11:17] VITALS: BP 173/91; PULSE 89; RESP 18
[2018-11-16] MEDS ORDERED: GLUCAGON 1 MG INJ IM PRN (11:30)
[2018-11-16] MEDS ORDERED: GLUCOSE GEL 15 GRAM TUBE PO PRN ×2 (11:30)
[2018-11-16] MEDS ORDERED: DEXTROSE 50% 50 ML SYRINGE IV PRN ×2 (11:30)
[2018-11-16] MEDS ORDERED: GLUCOSE GEL 15 GRAM TUBE BUCCAL PRN (11:30)
[2018-11-16] MEDS: INSULIN ASPART [NOVOLOG] 3 ML PEN SC SCH ×3 (11:33→20:44)
[2018-11-16 15:12] VITALS: BP 174/87; PULSE 93; RESP 18
[2018-11-16] MEDS ORDERED: EPOETIN ALFA-EPBX (NON-ESRD 10,000 UNIT/ML VIAL SC ONE (17:30)
[2018-11-16 19:36] VITALS: BP 162/77; PULSE 88; RESP 19
[2018-11-16] MEDS: ATORVASTATIN 40 MG TAB PO SCH (20:44)
[2018-11-17] VITALS (7 sets, daily range): BP systolic 163–185; BP diastolic 77–89; PULSE 76–85; RESP 18–20
[2018-11-17] MEDS: INSULIN ASPART [NOVOLOG] 3 ML PEN SC SCH ×4 (07:18→21:00)
--- NOTE | 2018-11-17 07:45 | PN ---
DATE: 11/17/2018 SUBJECTIVE: The patient is stable. Shortness of breath is improving. No other events noted. OBJECTIVE: VITAL SIGNS: Blood pressure is 171/81, respiration 19, pulse 76, temperature 98.3. HEENT: Head is normocephalic. NECK: Supple. HEART: Regular rate. LUNGS: Show diminished breath sounds at the base. ABDOMEN: Soft, nontender to palpation without rebound or guarding. EXTREMITIES: Negative for clubbing, cyanosis. Positive edema. DERMATOLOGIC: No rashes. MUSCULOSKELETAL: No joint effusion. NEUROLOGIC: No change in exam. MEDICATIONS: The patient's medications have been reviewed. LABORATORY DATA: Has been reviewed. Imaging studies have been reviewed. ASSESSMENT AND PLAN: 1. Nonoliguric acute kidney injury on top of chronic kidney disease stage IV with a baseline creatin ine around 2.5 to 3,0 mg/dL. Etiology of acute kidney injury is secondary to hemodynamics, possible c ardiorenal syndrome. Patient's renal function has been fluctuating but improved from most recent bas aggie. We will continue current treatment plans, supportive care, renally dose all meds. Continue d iuretic therapy. 2. Nephrotic syndrome. The patient has significant proteinuria, volume overload, and is hypoalbumin emic. Underlying etiology is likely due to diabetes. We will continue current diuretic regimen. Wo uld also consider serological workup. We will check SPEP, UPEP, immunofixation and monitor closely. 3. Anemia. Monitor hemoglobin and hematocrit levels. 4. Mineral bone disorder. Monitor calcium and phosphorus levels. The patient is hypophosphatemic w hich is unexpected in the setting of chronic kidney disease. Vitamin D levels are low, will replete. 5. Acute on chronic heart failure. Continue diuretic therapy. 6. Diabetes. Continue current insulin regimen. 7. Hypertension. Continue current blood pressure regimen. Adjust medications as needed. Defer any NGOC inhibitor or ARB at this time in the setting of renal failure. Dictated By: BERTHA DOLL DO NR/NTS Conf#: [id number] DID#: [id number] CC: ALMA ROSA RODRIGUEZ; NANCY ZULETA MD;*EndCC*
[2018-11-17] MEDS: CALCIUM ACETATE 667 MG CAP PO SCH ×3 (07:55→17:20)
[2018-11-17] MEDS: FERROUS SULFATE (EC) 325 MG TAB PO SCH (08:15)
[2018-11-17] MEDS: AMLODIPINE 10 MG TAB PO SCH (08:16)
[2018-11-17] MEDS: CHOLECALCIFEROL 2,000 UNIT CAP PO SCH (08:16)
[2018-11-17] MEDS: BUMETANIDE 1 MG TAB PO SCH ×2 (08:16→21:07)
--- NOTE | 2018-11-17 11:56 | PN ---
Date/Time of Note Date/Time of Note DATE: 11/17/18 TIME: 11:55 Assessment/Plan VTE Prophylaxis Risk score (from Ns)>0 risk: 2 SCD applied (from Ns): Yes Pharmacological prophylaxis: other Lines/Catheters [facility] Saline Lock Urinary Cath still in place: No Assessment/Plan Hospital Course S: Patient seen by renal team today. Still with some mild shortness of breath symptoms and weakness. O: VS- see below PE: Constitutional: lying in bed, no acute distress Head: normocephalic, atraumatic Eyes: EOMI, PERRL Respiratory: other Cardiovascular: regular rate and rhythm (Decreased breath sounds at the bases) Gastrointestinal: soft Extremities: edema 2D echo October 13, 2018: Conclusions: Normal left ventricular systolic function. Normal left ventricular cavity size. Mild concentric left ventricular hypertrophy. Ejection fraction is visually estimated at 55-60 %. Tissue Doppler/Mitral Doppler indices are consistent with pseudonormalization with mildly elevated left atrial pressure (Stage II diastolic dysfunction). No significant valvular stenosis or regurgitation seen. Small pericardial effusion. Unable to obtain RVSP due to minimal presence of tricuspid regurgitation. Normal size and normal respiratory collapse consistent with normal right atrial pressure. Assessment/Plan: 48-year-old male who presents with: 1. Acute on chronic diastolic CHF: Slowly improving. Echocardiogram results from September 2018 noted above -Continue with diurese, and monitor urine output -Continue home cardiac meds -Will also obtain PT and OT eval's 2. CKD: Improved from last discharge day. Appreciate renal assistance. -Monitor closely -Follow-up further recommendations from the nephrology consult 3. Type 2 diabetes: Continue meds, monitor sugars 4. Hypertension: Adjust BP meds as needed 5. Anemia of chronic disease: Hemoglobin 7.6, but stable -Monitor CBC, if hemoglobin drops further or patient has signs of bleeding will consider a transfusion during this hospitalization -Epogen per nephrology Result Diagram: 11/17/18 0539 11/17/18 0539 Results 24hrs Laboratory Tests Test 11/16/18 17:05 11/16/18 19:00 11/16/18 20:42 11/17/18 05:39 Bedside Glucose 147 120 Urine Color YELLOW Urine Clarity CLEAR Urine pH 5.0 Urine Specific [place] 1.010 Urine Ketones NEGATIVE Urine Nitrite NEGATIVE Urine Bilirubin NEGATIVE Urine Urobilinogen NEGATIVE Urine Leukocyte Esterase NEGATIVE Urine Microscopic RBC 7 H Urine Microscopic WBC 0 Urine Hemoglobin 1+ H Urine Random Creatinine 42.30 Urine Random Sodium 91 H Urine Glucose 1+ H Urine Total Protein > 600.0 H White Blood Count 9.0 # Red Blood Count 2.58 L Hemoglobin 7.6 L Hematocrit 23.5 L Mean Corpuscular Volume 91.1 Mean Corpuscular 29.5 Hemoglobin Mean Corpuscular 32.3 Hemoglobin Concent Red Cell Distribution 13.7 Width Platelet Count 179 Mean Platelet Volume 11.0 H Immature Granulocytes % 0.400 Neutrophils % 71.0 Lymphocytes % 15.9 Monocytes % 8.6 Eosinophils % 3.4 Basophils % 0.7 Nucleated Red Blood 0.0 Cells % Immature Granulocytes # 0.040 H Neutrophils # 6.4 Lymphocytes # 1.4 Monocytes # 0.8 Eosinophils # 0.3 Basophils # 0.1 Nucleated Red Blood 0.0 Cells # Sodium Level 141 Potassium Level 4.4 Chloride Level 115 H Carbon Dioxide Level 20 L Anion Gap 6 Blood Urea Nitrogen 46 H Creatinine 2.69 H Est Glomerular Filtrat 25 L Rate mL/min Glucose Level 86 Calcium Level 8.0 L Phosphorus Level 4.6 Magnesium Level 2.5 Test 11/17/18 07:17 11/17/18 11:33 Bedside Glucose 98 102 Exam/Review of Systems Exam Vitals Vital Signs Date Temp Pulse Resp B/P (MAP) Pulse Ox O2 O2 Flow FiO2 Time Delivery Rate 11/17/18 98.0 83 20 185/89 94 Room Air 11:18 (121) Intake and Output 11/16/18 11/16/18 11/17/18 1515:00 23:00 07:00 IntakeIntake Total 240 ml 500 ml 800 ml OutputOutput Total 425 ml 800 ml 400 ml BalanceBalance -185 ml -300 ml 400 ml Results Results 24hrs Laboratory Tests Test 11/16/18 17:05 11/16/18 19:00 11/16/18 20:42 11/17/18 05:39 Bedside Glucose 147 120 Urine Color YELLOW Urine Clarity CLEAR Urine pH 5.0 Urine Specific [place] 1.010 Urine Ketones NEGATIVE Urine Nitrite NEGATIVE Urine Bilirubin NEGATIVE Urine Urobilinogen NEGATIVE Urine Leukocyte Esterase NEGATIVE Urine Microscopic RBC 7 H Urine Microscopic WBC 0 Urine Hemoglobin 1+ H Urine Random Creatinine 42.30 Urine Random Sodium 91 H Urine Glucose 1+ H Urine Total Protein > 600.0 H White Blood Count 9.0 # Red Blood Count 2.58 L Hemoglobin 7.6 L Hematocrit 23.5 L Mean Corpuscular Volume 91.1 Mean Corpuscular 29.5 Hemoglobin Mean Corpuscular 32.3 Hemoglobin Concent Red Cell Distribution 13.7 Width Platelet Count 179 Mean Platelet Volume 11.0 H Immature Granulocytes % 0.400 Neutrophils % 71.0 Lymphocytes % 15.9 Monocytes % 8.6 Eosinophils % 3.4 Basophils % 0.7 Nucleated Red Blood 0.0 Cells % Immature Granulocytes # 0.040 H Neutrophils # 6.4 Lymphocytes # 1.4 Monocytes # 0.8 Eosinophils # 0.3 Basophils # 0.1 Nucleated Red Blood 0.0 Cells # Sodium Level 141 Potassium Level 4.4 Chloride Level 115 H Carbon Dioxide Level 20 L Anion Gap 6 Blood Urea Nitrogen 46 H Creatinine 2.69 H Est Glomerular Filtrat 25 L Rate mL/min Glucose Level 86 Calcium Level 8.0 L Phosphorus Level 4.6 Magnesium Level 2.5 Test 11/17/18 07:17 11/17/18 11:33 Bedside Glucose 98 102 Medications Medication Current Medications IV Flush (NS 3 ml) 3 ml PER PROTOCOL IV ; Start 11/15/18 at 23:00 Ondansetron HCl (Zofran Inj) 4 mg Q6H PRN IV NAUSEA/VOMITING; Start 11/15/18 at 23:00 Acetaminophen (Tylenol Tab) 650 mg Q6H PRN PO .PAIN 1-3 OR TEMP; Start 11/15/18 at 23:00 Albuterol/ Ipratropium (Duoneb) 3 ml Q2H RESP THERAPY PRN HHN SHORTNESS OF BREATH; Start 11/15/18 at 23:00 Amlodipine Besylate (Norvasc) 10 mg DAILY PO Last administered on 11/17/18at 08:16; Admin Dose 10 MG; Start 11/16/18 at 09:00 Atorvastatin Calcium (Lipitor) 40 mg QHS PO Last administered on 11/16/18at 20:44; Admin Dose 40 MG; Start 11/16/18 at 21:00 Bumetanide (Bumex) 1 mg BID PO Last administered on 11/17/18at 08:16; Admin Dose 1 MG; Start 11/16/18 at 09:00 Calcium Acetate (Phoslo) 667 mg WITH MEALS PO Last administered on 11/17/18at 07:55; Admin Dose 667 MG; Start 11/16/18 at 07:55 Ferrous Sulfate (Ferrous Sulfate (Ec)) 325 mg DAILY PO Last administered on 11/17/18at 08:15; Admin Dose 325 MG; Start 11/16/18 at 09:00 Hydralazine HCl (Apresoline) 10 mg Q6H PRN IV ELEVATED BLOOD PRESSURE; Start 11/16/18 at 11:00 Insulin Aspart (Novolog Insulin Pen) NOVOLOG *MILD* ALGORITHM WITH MEALS BEDTIME SC Last administered on 11/16/18at 17:34; Admin Dose 1 UNIT; Start 11/16/18 at 11:50 Phenol (Cepastat Lozenge) 1 lozenge Q1H PRN MT COUGH; Start 11/16/18 at 11:00 Miscellaneous Information 1 ea NOTE XX ; Start 11/16/18 at 11:30 Glucose (Glutose) 15 gm Q15M PRN PO DECREASED GLUCOSE; Start 11/16/18 at 11:30 Glucose (Glutose) 22.5 gm Q15M PRN PO DECREASED GLUCOSE; Start 11/16/18 at 11:30 Dextrose (D50w Syringe) 25 ml Q15M PRN IV DECREASED GLUCOSE; Start 11/16/18 at 11:30 Dextrose (D50w Syringe) 50 ml Q15M PRN IV DECREASED GLUCOSE; Start 11/16/18 at 11:30 Glucagon (Glucagen) 1 mg Q15M PRN IM DECREASED GLUCOSE; Start 11/16/18 at 11:30 Glucose (Glutose) 15 gm Q15M PRN BUCCAL DECREASED GLUCOSE; Start 11/16/18 at 11:30 Cholecalciferol (Vitamin D) 2,000 unit DAILY PO Last administered on 11/17/18at 08:16; Admin Dose 2,000 UNIT; Start 11/17/18 at 09:00 ALMA ROSA RODRIGUEZ Nov 17, 2018 11:56
[2018-11-17] MEDS: ATORVASTATIN 40 MG TAB PO SCH (21:07)
[2018-11-18] VITALS (8 sets, daily range): BP systolic 148–181; BP diastolic 65–88; PULSE 70–89; RESP 19–20
--- NOTE | 2018-11-18 06:26 | CONS ---
DATE OF ADMISSION: 11/15/2018 DATE OF CONSULTATION: 11/16/2018 TYPE OF CONSULTATION: Nephrology. REASON FOR CONSULTATION: Acute kidney injury, CKD. PHYSICIAN REQUESTING: Dr. Alma Rosa Rodriguez HISTORY OF PRESENT ILLNESS: This is a 48-year-old male with a past medical history of CKD stage III/ IV with a previous baseline creatinine around 2.5 mg/dL, with a previous baseline creatinine around 2 .5 to 3.0 mg/dL, a history of hypertension, diabetes, history of anemia, history of CHF, who presents to the [facility] Emergency Room with shortness of breath, lower extremity swelling. The p erendira was recently admitted to [facility] 3 weeks ago for CHF exacerbation. At th at time the patient had a 2D echo, showed ejection fraction of 55% to 60% with stage II diastolic dys function. The patient on presentation here had a chest x-ray which showed increased atelectasis or p neumonia. The patient was placed on diuretic therapy and admitted to telemetry for evaluation. In terms of patient's renal history, the patient previous baseline creatinines were ranging between 2 .5 and 3.5 mg/dL. Current on admission creatinine is below previous baseline, around 2.8 mg/dL. The patient denies any frothy urine, any hemoptysis or hematemesis. PAST MEDICAL HISTORY: As stated above, history of CKD, hypertension, diabetes, CHF. PAST SURGICAL HISTORY: Reviewed. ALLERGIES: NO KNOWN DRUG ALLERGIES. SOCIAL HISTORY: Positive tobacco use. MEDICATIONS: Reviewed. REVIEW OF SYSTEMS: A 14-point review of systems is conducted, pertinent positives in HPI, otherwise negative. PHYSICAL EXAMINATION: VITAL SIGNS: Blood pressure is 174/87, respiration 18, pulse 93, temperature 99.7. HEENT: Head is normocephalic. NECK: Supple, positive JVD. HEART: Regular rate. LUNGS: Show diminished breath sounds at the base. Positive rhonchi. ABDOMEN: Soft, nontender to palpation, no rebound or guarding. EXTREMITIES: Negative for clubbing, cyanosis. Positive edema. DERMATOLOGIC: No rashes. MUSCULOSKELETAL: No joint effusion. NEUROLOGIC: No focal deficits. LABORATORY DATA: Reviewed. IMAGING STUDIES: Reviewed. ASSESSMENT AND PLAN: A 48-year-old male, presents with: 1. Nonoliguric acute kidney injury on top of chronic kidney disease stage IV, with previous baseline creatinine around 2.5 to 3.5 mg/dL. Etiology of acute kidney injury is possibly secondary to hemody namics, cardiorenal syndrome. Other possibilities such as a tubular injury are a consideration. Rec ommendation at this point is to check UA with microanalysis, check urine electrolytes. We will damien nue diuretic therapy. We will add metolazone to augment diuresis. Otherwise, continue supportive ca re ____. 2. Acute heart failure, diastolic. The patient is clinically volume overloaded. Continue current m edical management. Continue Bumex. We will add metolazone to augment diuresis. 3. Anemia. Monitor H and H levels. 4. ____. Monitor calcium and phosphorus levels. 5. Hypermagnesemia secondary to acute kidney injury. Continue to monitor. 6. Metabolic acidosis secondary to acute kidney injury. Continue to monitor. 7. Diabetes. Continue current insulin management. 8. Hypertension. Continue current blood pressure regimen. Thank you, Dr. Rodriguez, for this interesting consult. It will be a pleasure to follow the patient with you throughout the hospital course. Dictated By: BERTHA DOLL DO NR/NTS Conf#: [id number] DID#: [id number] CC: ALMA ROSA RODRIGUEZ; NANCY ZULETA MD;*End*
[2018-11-18] MEDS: INSULIN ASPART [NOVOLOG] 3 ML PEN SC SCH ×4 (07:55→20:56)
[2018-11-18] MEDS: CHOLECALCIFEROL 2,000 UNIT CAP PO SCH (08:14)
[2018-11-18] MEDS: BUMETANIDE 1 MG TAB PO SCH ×2 (08:14→20:52)
[2018-11-18] MEDS: LISINOPRIL 5 MG TAB PO SCH (08:14)
[2018-11-18] MEDS: FERROUS SULFATE (EC) 325 MG TAB PO SCH (08:14)
[2018-11-18] MEDS: AMLODIPINE 10 MG TAB PO SCH (08:15)
[2018-11-18] MEDS: CALCIUM ACETATE 667 MG CAP PO SCH ×3 (08:15→17:32)
--- NOTE | 2018-11-18 08:52 | PN ---
DATE: 11/18/2018 SUBJECTIVE: The patient is stable, no events overnight. OBJECTIVE: VITAL SIGNS: Blood pressure is 180/87, pulse 84, respiration 19, temperature 98.1. HEENT: Head is normocephalic. NECK: Supple. HEART: Regular rate. LUNGS: Show diminished breath sounds at the base. ABDOMEN: Soft, nontender to palpation without rebound or guarding. EXTREMITIES: Negative for clubbing, cyanosis, no edema. DERMATOLOGIC: No rashes. MUSCULOSKELETAL: No joint effusion. NEUROLOGIC: No change in exam. MEDICATIONS: Have been reviewed. LABORATORY DATA: Has been reviewed. IMAGING STUDIES: Have been reviewed. ASSESSMENT AND PLAN: 1. Nonoliguric acute kidney injury on top of chronic kidney disease stage IV with previous baseline creatinine around 2.5 to 3.2 mg/dL. Etiology of current acute kidney injury is secondary to hemodyna mics. The patient's renal function is currently below baseline. Continue current treatment plan, white pportive care, renally dose all meds. 2. Nephrotic syndrome. Etiology is likely secondary to diabetes. Further workup is ongoing. We wi ll follow up . Followup albumin/creatinine ratio. Continue diuretic therapy. The patient woul d likely benefit from NGOC inhibitor or ARB if renal function remains stable. 2. Anemia. Monitor hemoglobin and hematocrit levels. 3. Mineral bone disorder. Monitor calcium and phosphorus levels. 4. Volume overload. Etiology is secondary to congestive heart failure, nephrotic syndrome. Continu e diuretic therapy. 5. Diabetes. Continue current insulin regimen. 6. Hypertension. Continue current blood pressure regimen. We will start the patient on low-dose AC E inhibitor and ARB. Dictated By: BERTHA DOLL DO NR/NTS Conf#: [id number] DID#: [id number] CC: NANCY ZULETA MD;*EndCC*
--- NOTE | 2018-11-18 14:46 | PN ---
Date/Time of Note Date/Time of Note DATE: 11/18/18 TIME: 14:43 Assessment/Plan VTE Prophylaxis Risk score (from Nsg)>0 risk: 2 SCD applied (from Nsg): No SCD contraindicated: low risk/ambulating Pharmacological prophylaxis: LMWH Lines/Catheters IV Catheter Type (from Nrsg): Saline Lock Urinary Cath still in place: No Assessment/Plan Hospital Course A/P. 1. CHF- dd; cont Htn rx 2. Htn 3. DM II 4. CKD w ARF? baseline ~2.5 5. Nephrotic Syndrome 6. P tobacco 7. Anemia 8. Nsvt; lytes good; on bb. trop negative S: nsvt while shower. artifact? no syncope/ diaphoresis O; vss PE no pallor/ jvd reg s1s2 no mrg ctab bs+ ntnd no r r g mild edema Result Diagram: 11/17/18 0539 11/17/1839 Results 24hrs Laboratory Tests Test 11/17/18 17:13 11/17/18 21:24 11/18/18 08:01 11/18/18 11:47 Bedside Glucose 175 136 115 134 Exam/Review of Systems Exam Vitals Vital Signs Date Temp Pulse Resp B/P (MAP) Pulse Ox O2 O2 Flow FiO2 Time Delivery Rate 11/18/18 97.7 86 20 169/81 97 11:30 (110) 11/18/18 Room Air 04:04 Intake and Output 11/17/18 11/17/18 11/18/18 1515:00 23:00 07:00 IntakeIntake Total 480 ml 900 ml 500 ml OutputOutput Total 1000 ml 800 ml 1190 ml BalanceBalance -520 ml 100 ml -690 ml Results Results 24hrs Laboratory Tests Test 11/17/18 17:13 11/17/18 21:24 11/18/18 08:01 11/18/18 11:47 Bedside Glucose 175 136 115 134 Medications Medication Current Medications IV Flush (NS 3 ml) 3 ml PER PROTOCOL IV ; Start 11/15/18 at 23:00 Ondansetron HCl (Zofran Inj) 4 mg Q6H PRN IV NAUSEA/VOMITING; Start 11/15/18 at 23:00 Acetaminophen (Tylenol Tab) 650 mg Q6H PRN PO .PAIN 1-3 OR TEMP; Start 11/15/18 at 23:00 Albuterol/ Ipratropium (Duoneb) 3 ml Q2H RESP THERAPY PRN HHN SHORTNESS OF BREATH; Start 11/15/18 at 23:00 Amlodipine Besylate (Norvasc) 10 mg DAILY PO Last administered on 11/18/18 08 :15; Admin Dose 10 MG; Start 11/16/18 at 09:00 Atorvastatin Calcium (Lipitor) 40 mg QHS PO Last administered on 11/17/18at 21:07; Admin Dose 40 MG; Start 11/16/18 at 21:00 Bumetanide (Bumex) 1 mg BID PO Last administered on 11/18/18 08:14; Admin Dose 1 MG; Start 11/16/18 at 09:00 Calcium Acetate (Phoslo) 667 mg WITH MEALS PO Last administered on 11/18/18 11:48; Admin Dose 667 MG; Start 11/16/18 at 07:55 Ferrous Sulfate (Ferrous Sulfate (Ec)) 325 mg DAILY PO Last administered on 11/18/18 08:14; Admin Dose 325 MG; Start 11/16/18 at 09:00 Hydralazine HCl (Apresoline) 10 mg Q6H PRN IV ELEVATED BLOOD PRESSURE Last administered on 11/18/18 09:41; Admin Dose 10 MG; Start 11/16/18 at 11:00 Insulin Aspart (Novolog Insulin Pen) NOVOLOG *MILD* ALGORITHM WITH MEALS BEDTIME SC Last administered on 11/17/18 17:18; Admin Dose 1 UNIT; Start 11/16/18 at 11:50 Phenol (Cepastat Lozenge) 1 lozenge Q1H PRN MT COUGH; Start 11/16/18 at 11:00 Miscellaneous Information 1 ea NOTE XX ; Start 11/16/18 at 11:30 Glucose (Glutose) 15 gm Q15M PRN PO DECREASED GLUCOSE; Start 11/16/18 at 11:30 Glucose (Glutose) 22.5 gm Q15M PRN PO DECREASED GLUCOSE; Start 11/16/18 at 11:30 Dextrose (D50w Syringe) 25 ml Q15M PRN IV DECREASED GLUCOSE; Start 11/16/18 at 11:30 Dextrose (D50w Syringe) 50 ml Q15M PRN IV DECREASED GLUCOSE; Start 11/16/18 at 11:30 Glucagon (Glucagen) 1 mg Q15M PRN IM DECREASED GLUCOSE; Start 11/16/18 at 11:30 Glucose (Glutose) 15 gm Q15M PRN BUCCAL DECREASED GLUCOSE; Start 11/16/18 at 11:30 Cholecalciferol (Vitamin D) 2,000 unit DAILY PO Last administered on 11/18/18at 08:14; Admin Dose 2,000 UNIT; Start 11/17/18 at 09:00 Lisinopril (Zestril) 5 mg DAILY PO Last administered on 11/18/18at 08:14; Admin Dose 5 MG; Start 11/18/18 at 09:00 MEI SEGOVIA MD Nov 18, 2018 14:46
[2018-11-18] MEDS: METOPROLOL (XL) 50 MG TAB PO SCH (15:01)
[2018-11-18] MEDS: ATORVASTATIN 40 MG TAB PO SCH (20:52)
[2018-11-18] MEDS: hydrALAzine 20 MG INJ IV PRN (21:17)
[2018-11-19] VITALS (7 sets, daily range): BP systolic 149–175; BP diastolic 73–87; PULSE 80–87; RESP 18–20
[2018-11-19] MEDS: hydrALAzine 20 MG INJ IV PRN ×3 (05:18→21:14)
[2018-11-19] MEDS: INSULIN ASPART [NOVOLOG] 3 ML PEN SC SCH ×4 (07:35→21:00)
[2018-11-19] MEDS: BUMETANIDE 1 MG TAB PO SCH ×2 (08:26→21:13)
[2018-11-19] MEDS: CHOLECALCIFEROL 2,000 UNIT CAP PO SCH (08:26)
[2018-11-19] MEDS: FERROUS SULFATE (EC) 325 MG TAB PO SCH (08:27)
[2018-11-19] MEDS: METOPROLOL (XL) 50 MG TAB PO SCH (08:27)
[2018-11-19] MEDS: LISINOPRIL 5 MG TAB PO SCH (08:27)
[2018-11-19] MEDS: AMLODIPINE 10 MG TAB PO SCH (08:28)
[2018-11-19] MEDS: CALCIUM ACETATE 667 MG CAP PO SCH ×3 (08:28→17:17)
--- NOTE | 2018-11-19 08:55 | PN ---
DATE: 11/19/2018 SUBJECTIVE: The patient is stable, no events overnight. OBJECTIVE: VITAL SIGNS: Blood pressure is 175/84, respiration is 19, pulse 80, temperature 98.1. HEENT: Head is normocephalic. NECK: Supple. HEART: Regular rate. LUNGS: Show diminished breath sounds at the base. ABDOMEN: Soft, nontender to palpation without rebound or guarding. EXTREMITIES: Negative for clubbing, cyanosis. Positive edema, improving. DERMATOLOGIC: No rashes. MUSCULOSKELETAL: No joint effusion. NEUROLOGIC: No change in exam. MEDICATIONS: Have been reviewed. LABORATORY DATA: Has been reviewed. IMAGING STUDIES: Have been reviewed. ASSESSMENT AND PLAN: 1. Nonoliguric acute kidney injury on top of chronic kidney disease stage IV with previous baseline creatinine around 2.5 to 3.0 mg/dL. Etiology of acute kidney injury is secondary to hemodynamics. R enal function is fluctuating and slowly improving. At this point, continue current treatment plan, s upportive care, renally dose all meds. 2. Nephrotic syndrome. Etiology is likely secondary to diabetes. The patient's SPEP, UPEP are pend ing. Continue current medical management. Continue diuretic therapy. Continue low-dose GNOC inhibit or. Will up titrate if renal function remains stable. 3. Anemia. Monitor hemoglobin and hematocrit levels. 4. Mineral bone disorder. Monitor calcium and phosphorus levels. 4. Volume overload secondary to nephrotic syndrome, congestive heart failure. Continue diuretic reg imen. 5. Diabetes. Continue current insulin regimen. 6. Hypertension. Continue current blood pressure regimen. Continue low-dose NGOC inhibitor. Dictated By: BERTHA DOLL DO NR/NTS Conf#: [id number] DID#: [id number] CC: NANCY ZULETA MD;*EndCC*
--- NOTE | 2018-11-19 15:54 | PN ---
Date/Time of Note Date/Time of Note DATE: 11/19/18 TIME: 15:52 Assessment/Plan VTE Prophylaxis Risk score (from [facility])>0 risk: 3 SCD applied (from [facility]): No SCD contraindicated: low risk/ambulating Pharmacological prophylaxis: NA/contraindicated Pharm contraindication: low risk/ambulating Lines/Catheters IV Catheter Type (from [facility]): Peripheral IV Urinary Cath still in place: No Assessment/Plan Hospital Course A/P 1. CHF- dd; cont Htn rx. Home Sunday if okay with nephrology. 2. Htn 3. DM II 4. CKD w ARF? baseline ~2.5 5. Nephrotic Syndrome 6. P tobacco 7. Anemia 8. Nsvt; lytes good; on bb. trop negative S: 11/18 nsvt while shower. artifact? no syncope/ diaphoresis 11/19: No events. Less edema. No fever. Does not add a lot of salt to his foods. O; vss PE no pallor/ jvd reg s1s2 no mrg ctab bs+ ntnd no r r g mild edema Result Diagram: 11/19/18 0600 11/19/18 0600 Results 24hrs Laboratory Tests Test 11/18/18 17:21 11/18/18 20:56 11/19/18 06:00 11/19/18 07:33 Bedside Glucose 122 162 112 White Blood Count 7.9 Red Blood Count 2.80 L Hemoglobin 8.2 L Hematocrit 25.0 L Mean Corpuscular Volume 89.3 Mean Corpuscular 29.3 Hemoglobin Mean Corpuscular 32.8 Hemoglobin Concent Red Cell Distribution 13.7 Width Platelet Count 219 # Mean Platelet Volume 10.5 H Immature Granulocytes % 0.400 Neutrophils % 67.2 Lymphocytes % 16.8 Monocytes % 9.4 Eosinophils % 5.6 Basophils % 0.6 Nucleated Red Blood 0.0 Cells % Immature Granulocytes # 0.030 Neutrophils # 5.3 Lymphocytes # 1.3 Monocytes # 0.7 Eosinophils # 0.4 Basophils # 0.1 Nucleated Red Blood 0.0 Cells # Prothrombin Time 13.5 Prothrombin Time Ratio 1.1 INR International 1.02 Normalized Ratio Sodium Level 142 Potassium Level 4.8 Chloride Level 113 H Carbon Dioxide Level 23 Anion Gap 6 Blood Urea Nitrogen 42 H Creatinine 2.57 H Est Glomerular Filtrat 27 L Rate mL/min Glucose Level 99 Calcium Level 8.3 L Phosphorus Level 4.9 Magnesium Level 2.4 Troponin I < 0.012 Thyroid Stimulating 4.180 Hormone (TSH) Test 11/19/18 11:29 Bedside Glucose 134 Exam/Review of Systems Exam Vitals Vital Signs Date Temp Pulse Resp B/P (MAP) Pulse Ox O2 O2 Flow FiO2 Time Delivery Rate 11/19/18 83 149/74 13:26 (99) 11/19/18 98.3 18 97 Room Air 12:28 Intake and Output 11/18/18 11/18/18 11/19/18 1515:00 23:00 07:00 IntakeIntake Total 400 ml 300 ml OutputOutput Total 1203 ml 500 ml 1350 ml BalanceBalance -803 ml -500 ml -1050 ml Results Results 24hrs Laboratory Tests Test 11/18/18 17:21 11/18/18 20:56 11/19/18 06:00 11/19/18 07:33 Bedside Glucose 122 162 112 White Blood Count 7.9 Red Blood Count 2.80 L Hemoglobin 8.2 L Hematocrit 25.0 L Mean Corpuscular Volume 89.3 Mean Corpuscular 29.3 Hemoglobin Mean Corpuscular 32.8 Hemoglobin Concent Red Cell Distribution 13.7 Width Platelet Count 219 # Mean Platelet Volume 10.5 H Immature Granulocytes % 0.400 Neutrophils % 67.2 Lymphocytes % 16.8 Monocytes % 9.4 Eosinophils % 5.6 Basophils % 0.6 Nucleated Red Blood 0.0 Cells % Immature Granulocytes # 0.030 Neutrophils # 5.3 Lymphocytes # 1.3 Monocytes # 0.7 Eosinophils # 0.4 Basophils # 0.1 Nucleated Red Blood 0.0 Cells # Prothrombin Time 13.5 Prothrombin Time Ratio 1.1 INR International 1.02 Normalized Ratio Sodium Level 142 Potassium Level 4.8 Chloride Level 113 H Carbon Dioxide Level 23 Anion Gap 6 Blood Urea Nitrogen 42 H Creatinine 2.57 H Est Glomerular Filtrat 27 L Rate mL/min Glucose Level 99 Calcium Level 8.3 L Phosphorus Level 4.9 Magnesium Level 2.4 Troponin I < 0.012 Thyroid Stimulating 4.180 Hormone (TSH) Test 11/19/18 11:29 Bedside Glucose 134 Medications Medication Current Medications IV Flush (NS 3 ml) 3 ml PER PROTOCOL IV ; Start 11/15/18 at 23:00 Ondansetron HCl (Zofran Inj) 4 mg Q6H PRN IV NAUSEA/VOMITING; Start 11/15/18 at 23:00 Acetaminophen (Tylenol Tab) 650 mg Q6H PRN PO .PAIN 1-3 OR TEMP; Start 11/15/18 at 23:00 Albuterol/ Ipratropium (Duoneb) 3 ml Q2H RESP THERAPY PRN HHN SHORTNESS OF BREATH; Start 11/15/18 at 23:00 Amlodipine Besylate (Norvasc) 10 mg DAILY PO Last administered on 11/19/18 08:28; Admin Dose 10 MG; Start 11/16/18 at 09:00 Atorvastatin Calcium (Lipitor) 40 mg QHS PO Last administered on 11/18/18 20:52; Admin Dose 40 MG; Start 11/16/18 at 21:00 Bumetanide (Bumex) 1 mg BID PO Last administered on 11/19/18 08:26; Admin Dose 1 MG; Start 11/16/18 at 09:00 Calcium Acetate (Phoslo) 667 mg WITH MEALS PO Last administered on 11/19/18 11 :31; Admin Dose 667 MG; Start 11/16/18 at 07:55 Ferrous Sulfate (Ferrous Sulfate (Ec)) 325 mg DAILY PO Last administered on 11/19/18 08:27; Admin Dose 325 MG; Start 11/16/18 at 09:00 Insulin Aspart (Novolog Insulin Pen) NOVOLOG *MILD* ALGORITHM WITH MEALS BEDTIME SC Last administered on 11/17/18 17:18; Admin Dose 1 UNIT; Start 11/16/18 at 11:50 Phenol (Cepastat Lozenge) 1 lozenge Q1H PRN MT COUGH; Start 11/16/18 at 11:00 Miscellaneous Information 1 ea NOTE XX ; Start 11/16/18 at 11:30 Glucose (Glutose) 15 gm Q15M PRN PO DECREASED GLUCOSE; Start 11/16/18 at 11:30 Glucose (Glutose) 22.5 gm Q15M PRN PO DECREASED GLUCOSE; Start 11/16/18 at 11:30 Dextrose (D50w Syringe) 25 ml Q15M PRN IV DECREASED GLUCOSE; Start 11/16/18 at 11:30 Dextrose (D50w Syringe) 50 ml Q15M PRN IV DECREASED GLUCOSE; Start 11/16/18 at 11:30 Glucagon (Glucagen) 1 mg Q15M PRN IM DECREASED GLUCOSE; Start 11/16/18 at 11:30 Glucose (Glutose) 15 gm Q15M PRN BUCCAL DECREASED GLUCOSE; Start 11/16/18 at 11:30 Cholecalciferol (Vitamin D) 2,000 unit DAILY PO Last administered on 11/19/18 08:26; Admin Dose 2,000 UNIT; Start 11/17/18 at 09:00 Lisinopril (Zestril) 5 mg DAILY PO Last administered on 11/19/18at 08:27; Admin Dose 5 MG; Start 11/18/18 at 09:00 Hydralazine HCl (Apresoline) 10 mg Q4H PRN IV SBP GREATER THAN 160 Last administered on 11/19/18at 12:33; Admin Dose 10 MG; Start 11/18/18 at 15:00 Metoprolol Succinate (Toprol Xl) 50 mg DAILY PO Last administered on 11/19/18at 08:27; Admin Dose 50 MG; Start 11/18/18 at 15:00 Enoxaparin Sodium (Lovenox) 30 mg DAILY SC ; Start 11/20/18 at 09:00 MEI SEGOVIA MD Nov 19, 2018 15:54
[2018-11-19] MEDS: ATORVASTATIN 40 MG TAB PO SCH (21:13)
[2018-11-20 04:24] VITALS: BP 157/75; PULSE 85; RESP 19
[2018-11-20 07:25] VITALS: BP 160/76; PULSE 86; RESP 18
[2018-11-20] MEDS: INSULIN ASPART [NOVOLOG] 3 ML PEN SC SCH ×4 (07:55→20:18)
[2018-11-20] MEDS: CALCIUM ACETATE 667 MG CAP PO SCH ×3 (07:55→17:31)
[2018-11-20] MEDS: BUMETANIDE 1 MG TAB PO SCH ×2 (08:57→20:16)
[2018-11-20] MEDS: CHOLECALCIFEROL 2,000 UNIT CAP PO SCH (08:57)
[2018-11-20] MEDS: FERROUS SULFATE (EC) 325 MG TAB PO SCH (08:57)
[2018-11-20] MEDS: LISINOPRIL 5 MG TAB PO SCH (08:58)
[2018-11-20] MEDS: METOPROLOL (XL) 50 MG TAB PO SCH (08:58)
[2018-11-20] MEDS: AMLODIPINE 10 MG TAB PO SCH (08:59)
[2018-11-20] MEDS: ENOXAPARIN 30 MG/0.3 ML SYG SC SCH (09:21)
--- NOTE | 2018-11-20 10:13 | PN ---
DATE: 11/20/2018 SUBJECTIVE: The patient is stable, no events overnight. OBJECTIVE: VITAL SIGNS: Blood pressure is 150/76, pulse 86, respirations 18, temperature 98.2. HEENT: Head is normocephalic. NECK: Supple. HEART: Regular rate. LUNGS: Show diminished breath sounds at the base. ABDOMEN: Soft, nontender to palpation without rebound or guarding. EXTREMITIES: Negative for clubbing, cyanosis, no edema. DERMATOLOGIC: No rashes. MUSCULOSKELETAL: No joint effusions. NEUROLOGIC: No change in exam. MEDICATIONS: Reviewed. LABORATORY DATA: Has been reviewed. IMAGING STUDIES: Have been reviewed. ASSESSMENT AND PLAN: 1. Nonoliguric acute kidney injury on top of chronic kidney disease stage IV with previous baseline creatinine around 2.5 to 3.0 mg/dL. He has acute kidney injury secondary to hemodynamics. Renal fun ction is fluctuating. Monitor closely on diuretic therapy, NGOC inhibitor. If renal function should further decline, will discontinue NGOC inhibitor. 2. Volume overload. Etiology was initially felt to be secondary to nephrotic syndrome; however, rep eat protein creatinine ratio is approximately only 1.2 grams per gram of creatinine not consistent wi th nephrotic syndrome. Continue current medical management. 3. Anemia. Monitor hemoglobin and hematocrit levels. 4. Mineral bone disorder. Monitor calcium and phosphorus levels. 5. Volume overload secondary to congestive heart failure. Continue medical management. 6. Diabetes. Continue current insulin regimen. 7. Hypertension. Continue blood pressure regimen. Monitor and adjust blood pressure regimen as nee ded. Dictated By: BERTHA DOLL DO NR/NTS Conf#: [id number] DID#: [id number] CC: NANCY ZULETA MD;*EndCC*
[2018-11-20 11:46] VITALS: BP 153/75; PULSE 82; RESP 18
[2018-11-20 15:33] VITALS: BP 163/83; PULSE 82; RESP 18
[2018-11-20 19:49] VITALS: BP 162/77; PULSE 82; RESP 20
[2018-11-20] MEDS: ATORVASTATIN 40 MG TAB PO SCH (20:16)
[2018-11-20 23:30] VITALS: BP 169/81; PULSE 81; RESP 20
[2018-11-20] MEDS: hydrALAzine 20 MG INJ IV PRN (23:33)
[2018-11-21 00:05] VITALS: BP 154/78; PULSE 85
[2018-11-21 00:46] VITALS: BP 147/69; PULSE 88; RESP 18
[2018-11-21 02:07] VITALS: BP 142/62; PULSE 86; RESP 18
[2018-11-21] MEDS: INSULIN ASPART [NOVOLOG] 3 ML PEN SC SCH ×2 (07:50→12:52)
[2018-11-21 07:54] VITALS: BP 174/85; PULSE 85; RESP 18
--- NOTE | 2018-11-21 08:37 | PN ---
DATE: 11/21/2018 SUBJECTIVE: The patient is stable. No events overnight. No fevers, chills, nausea, vomiting. OBJECTIVE: VITAL SIGNS: Blood pressure is 142/63, respiration 18, pulse 86, temperature 97.6. HEENT: Head is normocephalic. NECK: Supple. HEART: Regular rate. LUNGS: Show diminished breath sounds at the base. ABDOMEN: Soft, nontender to palpation without rebound or guarding. EXTREMITIES: Negative for clubbing, cyanosis. Positive edema. DERMATOLOGIC: No rashes. MUSCULOSKELETAL: No joint effusion. NEUROLOGIC: No change in exam. MEDICATIONS: Have been reviewed. LABORATORY DATA: Has been reviewed. IMAGING STUDIES: Have been reviewed. ASSESSMENT AND PLAN: 1. Nonoliguric acute kidney injury on chronic kidney disease stage IV with previous baseline creatin ine of 2.5 to 3.0 mg/dL. Etiology of acute kidney injury is secondary to hemodynamics. The patient' s renal function has been fluctuating but overall stable. Continue current medical management. Cont inue diuretic therapy, NGOC inhibitor. 2. Nephrotic syndrome. Etiology is likely secondary to diabetic nephropathy. The patient has great er than 7 grams of proteinuria on microalbumin creatinine ratio. Continue medical management. Sravan nue to up titrate NGOC inhibitor. Continue diuretic therapy. 3. Anemia. Monitor hemoglobin and hematocrit levels. 4. Mineral bone disorder. Monitor calcium and phosphorus levels. 5. Volume overload secondary to nephrotic syndrome, congestive heart failure. Continue diuretic reg imen. 6. Diabetes. Continue current insulin regimen. 7. Hypertension. Continue current blood pressure regimen. Dictated By: BERTHA DOLL DO NR/NTS Conf#: [id number] DID#: [id number] CC: NANCY ZULETA MD;*EndCC*
[2018-11-21] MEDS: AMLODIPINE 10 MG TAB PO SCH (08:45)
[2018-11-21] MEDS: CALCIUM ACETATE 667 MG CAP PO SCH ×2 (08:45→12:52)
[2018-11-21] MEDS: FERROUS SULFATE (EC) 325 MG TAB PO SCH (08:45)
[2018-11-21] MEDS: METOPROLOL (XL) 50 MG TAB PO SCH (08:46)
[2018-11-21] MEDS: ENOXAPARIN 30 MG/0.3 ML SYG SC SCH (08:49)
[2018-11-21] MEDS ORDERED: LISINOPRIL 20 MG TAB PO SCH (09:00)
[2018-11-21] MEDS: BUMETANIDE 1 MG TAB PO SCH (09:55)
--- NOTE | 2018-11-21 11:25 | DS ---
Date/Time of Note Date/Time of Note DATE: 11/21/18 TIME: 11:20 Discharge Summary Admission/Discharge Info Admit Date/Time Nov 15, 2018 at 19:49 Discharge Date/Time Patient Condition: Stable Consults Dr Gotti Procedures Chest x-ray No acute process Venous Doppler bilateral lower extremities No DVT Labs Creat 2.7 Serum and urine electrophoresis [phone] Hx of Present Illness 48-year-old gentleman admitted with signs and symptoms of fluid overload Hospital Course Hospital course Admitted for decompensated diastolic heart failure. Seen additionally by nephrology. Noted to have nephrotic syndrome. Medical therapy included medications. Patient tolerating beta-aron diuretic NGOC inhibitor. NGOC inhibitor can be uptitrated as an outpatient. Urine output stable. Stable and fit for discharge. A/P 1. CHF- dd; cont Htn rx. Discharge home. 2. Htn 3. DM II 4. CKD w ARF? baseline ~2.5. Serum/ Urine electrophoresis pending. pt requested to f/u w primary and renal. [phone] 5. Nephrotic Syndrome 6. P tobacco 7. Anemia 8. Nsvt; lytes good; on bb. trop negative S: 11/18 nsvt while shower. artifact? no syncope/ diaphoresis 11/19: No events. Less edema. No fever. Does not add a lot of salt to his foods. 11/20: No events, edema improved 11/21 no events Home Meds Active Scripts Bumetanide* (Bumetanide*) 1 Mg Tablet, 1 MG PO BID for 30 Days, #60 TAB Prov:GLADIS CUNHA MD 10/24/18 Calcium Acetate* (Calcium Acetate*) 667 Mg Capsule, 667 MG PO WITH MEALS for 30 Days, #90 CAP Prov:GLADIS CUNHA MD 10/24/18 Reported Medications Ergocalciferol (Vitamin D2) (VITAMIN D2) 50,000 Unit Capsule, 59488 UNIT PO EVERY SUNDAY, CAP 10/13/18 Amlodipine Besylate* (Amlodipine Besylate*) 10 Mg Tablet, 10 MG PO DAILY, #30 TAB 10/13/18 Atorvastatin* (Atorvastatin*) 40 Mg Tablet, 40 MG PO QHS, #30 TAB 10/13/18 Ferrous Sulfate* (Ferrous Sulfate*) 325 Mg Tabec, 325 MG PO DAILY, TAB 10/13/18 Hydralazine Hcl* (Hydralazine Hcl*) 100 Mg Tablet, 100 MG PO BID, #90 TAB 10/13/18 Insulin Glargine,Hum.rec.anlog (Basaglar Paulikpen U-100) 100 Unit/1 Ml Insuln.pen, 8 UNIT SC QHS, EA 10/13/18 Carvedilol* (Carvedilol*) 25 Mg Tablet, 25 MG PO BID, #60 TAB 10/13/18 Primary Care Provider [facility] Time spent on discharge: > 30 minutes Pending Labs Laboratory Tests Test 11/20/18 12:27 11/20/18 17:32 11/20/18 20:17 11/21/18 04:37 Bedside 163 113 162 Glucose mg/dL (70-220) mg/dL (70-220) mg/dL (70-220) Sodium Level 138 mmol/L (135-14 4) Potassium 4.4 Level mmol/L (3.5-5. 1) Chloride Level 111 mmol/L (97-110 ) Carbon Dioxide 24 Level mmol/L (21-31) Anion Gap 3 (5-13) Blood Urea 45 Nitrogen mg/dl (7-20) Creatinine 2.72 mg/dl (0.61-1. 24) Est Glomerular 25 Filtrat mL/min (>60) Rate mL/min Glucose Level 97 mg/dl (70-220) Calcium Level 8.0 mg/dl (8.4-10. 2) Phosphorus 4.7 Level mg/dl (2.5-4.9 ) Magnesium 2.4 Level mg/dl (1.7-2.5 ) Test 11/21/18 08:25 Bedside 109 Glucose mg/dL (70-220) MEI SEGOVIA MD Nov 21, 2018 11:25
--- NOTE | 2018-11-21 11:27 | PDOCDIS ---
Discharge Instructions CONDITION [id number] Patient Condition: [id number] Stable HOME CARE INSTRUCTIONS: [id number] Diet Instructions: [id number] FOLLOW UP/APPOINTMENTS Follow-up Plan Dr Gotti 1wk PCP 1-2wks. pcp office to call Medical Records for Summary [phone] MEI SEGOVIA MD Nov 21, 2018 11:27
[2018-11-21] MEDS: CHOLECALCIFEROL 2,000 UNIT CAP PO SCH (11:43)
[2018-11-21 14:46] VITALS: BP 165/79; PULSE 85; RESP 20
== END 2018-11-21 16:10 | disposition home or self-care (01) | DRG 291 ==
LOC: E/R 17:40 → TEL 19:49 → MS1 11-21 00:33
PROVIDERS: ADMIT Internal Medicine; ATTEND Internal Medicine
DX: I13.0 Hypertensive heart and chronic kidney disease with heart failure and stage 1 through stage 4 chronic kidney disease, or unspecified chronic kidney disease (principal); I50.33 Acute on chronic diastolic (congestive) heart failure; N17.9 Acute kidney failure, unspecified; N18.4 Chronic kidney disease, stage 4 (severe); E11.22 Type 2 diabetes mellitus with diabetic chronic kidney disease; D63.8 Anemia in other chronic diseases classified elsewhere; Z79.4 Long term (current) use of insulin; F17.200 Nicotine dependence, unspecified, uncomplicated
CPT/HCPCS: 36415; 71045; 80048; 80053; 80307; 81001; 81003; 82043; 82306; 82550; 82553; 82570; 82652; 82962; 83735; 83880; 83970; 84100; 84155; 84156; 84165; 84166; 84300; 84443; 84484; 85025; 85610; 86320; 86325; 93005; 93970; 96374; 97110; 97116; 97162; 97166; 97530; 97535; J0360; J1650; J1815; J1940; Q5106